=== PATIENT | male | born 1970 | race Caucasian/White ===

== ENCOUNTER 2019-09-01 19:42 | Emergency (ER) | payer SELFPAY ==
[2019-09-01] VITALS (15 sets, daily range): BP systolic 131–194; BP diastolic 90–123; PULSE 70–82; RESP 16–22; TEMP 36.6–37; O2SAT 96–100; BMI 29.5
--- NOTE | 2019-09-01 19:55 | ED_ITS ---
Entered by Evon Trimble, acting as scribe for HPI - Skin/Abscess/Foreign Bdy General: Chief complaint: Skin/Abscess/Foreign Body Stated complaint: pulled pork stuck in throat Time Seen by Provider: 09/01/19 19:53 Source: patient Mode of arrival: ambulatory Limitations: no limitations History of Present Illness: HPI narrative: 48 yo Male presents to ED with com plaint of foreign body stuck in throat. Pt states that he has an esophageal stricture. Pt states that he was eating pulled pork when some became stuck in his throat around 1500 today. Pt has a history of stroke and has had his throat stretched multiple times at [facility] [place] before. Pt states that he is unable to swallow his saliva. Pt states that the last meal he ate was this morning. Pt states that he was attempting to eat a late lunch at 15:00 today and he took one bite of food, which got stuck in his throat. complaint: foreign body (in throat) Onset (ago): hour(s) Location: neck (throat) Severity: moderate Severity scale (1-10): 7 Quality: foreign body sensation Pain Consistency: constant Relieving factors: none Exacerbating factors: none Associated symptoms: Deny chills, fever(s), nausea, short of breath or vomiting Treatments prior to arrival: none Review of Systems General: Reports: 10 or more systems reviewed and unremarkable except in HPI and below Const: Denies: fever, chills or body aches Eyes: Denies: change in vision or blurry vision ENMT: Reports: other (foreign body in throat); Denies: throat pain, enlarged tonsils, painful swallowing, hoarseness, mouth pa in or swelling of lips/tongue Card: Denies: chest pain, palpitations, irregular heart rhythm, edema or swelling of feet/ankles Resp: Denies: shortness of breath, productive cough or non-productive cough GI: Denies: abdominal pain, nausea or vomiting : Denies: flank pain, painful urination, urinary frequency, urinary urgency or urinary hesitancy Musc: Denies: neck pain, back pain or extremity swelling Skin/Breast: Denies: rash, itching or redness Neuro: Denies: headache, numbness in extremities or weakness in extremities Endo: Denies: excessive urination, excessive thirst or tired all the time PFS ED PFSH: Social History Smoking and tobacco status: never smoked Physical Exam Const: COMMON NORMALS: no apparent distress, average body habitus, oriented x3, no limitations, healthy appearing, alert and well nourished HENMT: COMMON NORMALS: normocephalic, head/scalp atraumatic and moist oral mucous membranes HEAD & SCALP: normocephalic and atraumatic Eye: COMMON NORMALS: PERRL, EOMs intact bilaterally, conjunctivae normal and no scleral icterus CONJUNCTIVA: Yes conjunctivae normal PUPIL: Yes PERRL Neck/C-Spine: COMMON NORMALS: full ROM, supple, no meningeal signs, no JVD and no carotid bruits Chest: COMMONS NORMALS: inspection of chest normal and palpation of chest normal Resp: COMMON NORMALS: normal respiratory effort, no retractions, no use of accessory muscles, clear to auscultation bilaterally and percussion normal AUSCULTATION: clear to auscultation bilaterally PERCUSSION: percussion normal Cardio: COMMON NORMALS: no JVD, regular rate, regular rhythm, S1 normal heart sound, S2 normal heart sound, no gallops, no clicks, no murmurs, no rub and peripheral pulses 2+ throughout RATE: regular rate RHYTHM: regular rhythm HEART SOUNDS: S1 normal and S2 normal PERIPHERAL PULSES: pulses 2+ throughout GI: COMMON NORMALS: normal to inspection, nondistended, normoactive bowel sounds, soft to palpation, non-tender, no hepatosplenomegaly, no masses and no bruits PALPATION: Yes soft and Yes no hepatosplenomegaly : COMMON NORMALS: Yes no CVA tenderness BLADDER/KIDNEY EXAM: Yes no CVA tenderness Back/Pelvis: COMMON NORMALS: no CVA tenderness Extremity: COMMON NORMALS: normal to inspection, full ROM, normal capillary refill, no calf tenderness and no pedal edema Neuro: COMMON NORMALS: oriented x3 SENSORIUM/ORIENTATION: Yes alert MENINGEAL SIGNS: Yes no meningeal signs Skin: COMMON NORMALS: no rashes or lesions noted, no wounds, skin turgor normal, no jaundice, no petechiae and no mottling GENERAL SKIN EXAM: no rashes or lesions noted and turgor normal Course Consultations: Consultation #1: Dr. Lynne, Surgeon. He states that he does not do esophageal dilations so he will not be able to do this patient. Time: 20:18 Consultation #2: Dr. Hardin, he kindly accepted to perform the foreign body removal on this patient. Time: 20:25 Vital Signs: Vital signs: Vital Signs Temperature 98.0 F 09/01/19 21:31 Pulse Rate 74 09/01/19 21:31 Respiratory Rate 18 09/01/19 21:31 Blood Pressure 180/122 09/01/19 21:31 Pulse Oximetry 100 09/01/19 21:31 MDM - Skin/Abscess/Foreign Bdy MDM Narrative: Medical decision making narrative: 48-year-old gentleman with a history of esophageal strictures who presents to the emergency department with a food bolus stuck in his esophagus. This happened about 3 PM today. He is unable to swallow anything including his saliva. He is therefore been taking to the OR for an endoscopic removal. Contacted the surgeon second worker but he does not do dilations, so Dr. Hardin kindly accepted to do the foreign body removal. Medical Records: Attestation: I reviewed the patient's medical records. EKG Data^: EKG 1: Attestation: I personally reviewed and interpreted this EKG as follows: EKG Interpretation Date: 09/01/19 EKG interpretation time: 20:14 Prior EKG tracings: not available for review Interpretation: Sinus rhythm. Heart rate 77 bpm. Left ventricular hypertrophy. Q waves in I, IIaVF, V2-V6 Discharge Plan Discharge Patient Disposition: Home, Self-Care Clinical Impression: Foreign body in esophagus Qualifiers: Encounter type: initial encounter Qualified Code(s): T18.108A - Unspecified foreign body in esophagus causing other injury, initial encounter Condition: Stable Prescriptions: Continued gabapentin 300 mg Capsule 300 mg PO TID RF: 0 Keppra 750 mg Tablet 750 mg PO DAILY RF: 0 Discharge Orders: Discharge Order (Routine); Ordered 09/01/19 Ordered By: Prateek Zavaleta Referrals: Gildardo Roberts [Family Provider] - 4-7 days Patient Instructions: Foreign Body - Swallowed Discharge Date/Time: 09/01/19 21:27 Coding Level of Care Code ED Grocery Store Courtesy Clerk for Chg Fwd Exam Comprehensive The documentation recorded by the Atilio ames Carmen, accurately reflects the service I personally performed and the decisions made by me, Prateek Zavaleta MD, [facility] [place] Sep 01, 2019 19:42
--- NOTE | 2019-09-01 20:08 | XR_ITS ---
WS: [id number] AP and lateral soft tissue views of the neck, 09/01/2019 Clinical Data: FB in throat Comparison: AP and lateral soft tissue neck, 10/26/2016. Findings: No radiopaque foreign body can be seen. The thyroid and cricoid cartilages are normal. There is no ep iglottitis. No prevertebral soft tissue swelling is seen. The soft tissues of the neck in the lung ap ices are unremarkable. Minimal anterior osteoarthritic change at C5 and C6 is noted. There are monito r leads on the upper chest. XR/XR soft tissue neck [id number] Impression: Negative AP and lateral soft tissue views of neck.
--- NOTE | 2019-09-01 21:16 | P.ANESASSM_ITS ---
Pre-Anesthetic Assessment Pre-Anesthetic Assessment: Height/Weight: Height 1.75 m Weight 90.718 kg Temp Pulse Resp BP Pulse Ox 98.6 F 82 18 194/123 97 09/01/19 19:51 09/01/19 19:51 09/01/19 19:51 09/01/19 19:51 09/01/19 19:51 Preop Diagnosis: Esophageal food bolus Proposed Procedure: Operation Date: 09/01/19 21:30 Proposed Procedures p EGD(Left) - Ha Hardin MD Last intake: Intake Last Liquid Date 09/01/19 Last Liquid Time 15:00 Last Solid Date 09/01/19 Last Solid Time 15:00 Social: Social History: Tobacco Comment: cigars Exam: Pre-Anes Outpt Exam: alert, oriented x 3, clear to auscultation bilater ally and regular rate & rhythm Airway: Submandibular: WNL Cervical ROM: WNL MP: 2 Additional co mments: poor CV/HEM: CV/HEM: HTN GI: Comments: Esophageal stricture, s/p previous food bolus and subsequent dilation 2016 Neuropsych: Neuropsych: CVA and Seizure Comments: 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
[2019-09-01] MEDS: sodium chloride 0.9% 1,000 ML 30 ML IV (21:30)
[2019-09-01 21:48] LABS: Basophils # 0.1 10^3/uL (0.0-0.1); Basophils % 0.8 %; Eosinophils # 1.2 10^3/uL (0.0-0.8); Hematocrit 48.2 % (42.0-52.0); Hemoglobin 15.9 g/dL (11.7-16.6); Lymphocytes # 2.8 10^3/uL (0.8-4.8); Lymphocytes % 21.6 %; Mean Corpuscular Hemoglobin 29.4 pg (28.0-34.0); Mean Corpuscular Volume 89.3 fL (80-94); Mean Platelet Volume 10.1 fL (7.4-10.4); Monocytes # 0.7 10^3/uL (0.2-0.9); Monocytes % 5.1 %; Neutrophils # 8.3 10^3/uL (1.8-7.7); Neutrophils % 63.3 %; Nucleated Red Blood Cells % 0 %; Platelet Count 327 10^3/cmm (130-400); Red Cell Distribution Width 13.2 % (12.1-15.1); White Blood Count 13.2 10^3/uL (4.0-10.0)
--- NOTE | 2019-09-01 21:59 | SUR.PHASEI ---
8993 PATIENT TO PACU AT THIS TIME. RR EVEN AND UNLABORED. SPO2 98% ON ROOM AIR. PATIENT NOTED TO BE MOANING, DOESN'T OPEN EYES TO VERBAL STIMULI. PROTECTING AIRWAY.
[2019-09-01 22:05] LABS: INR 1.03 (0.8-1.2)
--- NOTE | 2019-09-01 22:06 | PM.PACU ---
PACU note PACU note: Good resp effort wih VSS Post-Anesthesia Exam: awake and vital signs stable Disposition: discharged
--- NOTE | 2019-09-01 22:08 | SUR.PHASEI ---
2208 PATIENT FAMILY UPDATED.
[2019-09-01 22:14] LABS: Alanine Aminotransferase 38 U/L (0-41); Albumin Level 4.2 g/dL (3.5-5.2); Alkaline Phosphatase 37 IU/L (40-130); Aspartate Amino Transferase 27 U/L (0-40); Blood Urea Nitrogen 10 mg/dL (6-20); Calcium 9.6 mg/dL (8.5-10.5); Carbon Dioxide 24 mmol/L (22-29); Chloride 104 mmol/L (98-107); Globulin 3.1 g/dL (1.3-4.6); Glomerular Filtration Rate 79.4 mL/min (90-130); Glucose 148 mg/dL (65-115); Sodium 141 mmol/L (136-145); Total Bilirubin 0.3 mg/dL (0.15-1.2); Total Protein 7.3 g/dL (6.6-8.7)
[2019-09-01] MEDS: ondansetron 2 mg/ML SDV 2 mL 4 MG IVP (22:20)
[2019-09-01] MEDS: labetalol 5 mg/mL SDV 20mL IVP (22:32)
--- NOTE | 2019-09-01 22:36 | SUR.PHASEI ---
2233 PATIENT CARE TURNED OVER TO OPS NURSE AT THIS TIME. RR EVEN AND UNLABORED. DENIES PAIN.
== END 2019-09-01 23:00 | disposition home or self-care (01) ==
PROVIDERS: Internal Medicine; Emergency Provider Family Medicine; Family Provider Family Medicine
PROC: 0DJ08ZZ Inspection of Upper Intestinal Tract, Via Natural or Artificial Opening Endoscopic (ICD-10-PCS; CPT 43235; principal; 2019-09-01 21:30)
DX: T18.128A Food in esophagus causing other injury, initial encounter (principal); Z86.73 Personal history of transient ischemic attack (TIA), and cerebral infarction without residual deficits
CPT/HCPCS: 36415; 43235; 70360; 80053; 85025; 85610; 96361; 96372; 96374; 96375; 99283; 99285; J0330; J1610; J2405; J2704; J3490; J7030

== ENCOUNTER 2020-03-26 19:10 | Emergency (ER) | payer SELFPAY ==
[2020-03-26 19:13] VITALS: BP 194/137; PULSE 96; RESP 20; TEMP 36.7; O2SAT 95; BMI 28.4
--- NOTE | 2020-03-26 19:14 | ED_ITS ---
HPI - Extremity Injury (Upper) General: Chief Complaint: Extremity Injury, Upper Stated Complaint: hand lac Time Seen by Provider: 03/26/20 19:14 Source: patient Mode of arrival: EMS Limitations: no limitations History of Present Illness: HPI narrative: Patient is a 49-year-old male presents to ED today for evaluation of a left hand/finger injury after lacerating several fingers with a table saw. Patient is up-to-date on immunizations. MD complaint: injury to: left and finger Onset (ago): hour(s) Other Extremity Injury: Left: fingers Other injuries: none Place: home Severity: severe Associated symptoms: Reports no associated symptoms Review of Systems Musc: Reports: extremity pain (L 1st, 2nd, 3rd digits ) Skin/Breast: Reports: other (finger lacerations) Neuro: Denies: numbness in extremities or sensory changes PFSH ED PFSH: Social History Smoking and tobacco status: never smoked Physical Exam Const: COMMON NORMALS: no acute distress, patient oriented x3, no limitations and alert Extremity: GENERAL: Yes normal exam except as noted OTHER: pt has lacerations to dorsal tips of L 1st, 2nd, 3rd digits; there is nail involvement of 2nd and 3rd digits; 3rd digit is more of a skin avulsion/loss and non- repairable; I do not visualize any tendon damage at this time Neuro: COMMON NORMALS: patient oriented x3, moves all extremities, no focal motor deficits and no sensory deficits noted SENSORIUM/ORIENTATION: Yes alert Skin: OTHER: see extremity assessment Procedures Laceration Laceration 1: Site: hand (thumb) Side (If applicable): left Size (cm): 2.0 Description: irregular Depth: simple, single layer Local Anesthetic: lidocaine 2% (digital block) Amount of anesthesia used (mL): 2.0 Pre-repair: wound explored and irrigated extensively Skin layer closed with: nylon Size (cm): 4-0 Number of sutures: 4 Technique: simple, interrupted Laceration 2: Site: hand (2nd digit) Side (If applicable): left Size (cm): 2.0 Description: irregular Depth: simple, single layer Local Anesthetic: lidocaine 2% (digital block) Amount of anesthesia used (mL): 2.0 Pre-repair: wound explored and irrigated extensively Skin layer closed with: nylon Size (cm): 4-0 Number of sutures: 4 Technique: simple, interrupted Course Consultations: Consultation #1: Dr. Barrientos-recommend loosely close lacerations, make sure tetanus is UTD, cover with abx, volar splint, and she will see patient on Sunday Vital Signs: Vital signs: Vital Signs Temperature 97.9 F 03/26/20 22:10 Pulse Rate 64 03/26/20 22:10 Respiratory Rate 18 03/26/20 22:10 Blood Pressure 148/92 03/26/20 22:10 Pulse Oximetry 99 03/26/20 22:10 MDM - Extremity Injury (Upper) MDM Narrative: Medical decision making narrative: wounds were soaked in betadine and copiously irrigated, wounds loosely closed, wounds dressed, and he was given IV ancef here; everything has been sent to [facility] for them to contact pt on Sunday for follow up; return to ED precautions given Imaging Data^: XR L hand: Radiologist's impression: [address] [address] XRay Report Signed Patient: Jay Dodge Unit #: [id number] : 1970 Age/Sex: 49 / M ADM Date: 03/26/20 Loc: ER Room/Bed: Attending Dr: Ordering Provider/Ordering MD: Lisa Tolbert Date of Service: 03/26/20 Procedure(s): XR hand LT min 3V* [id number] Accession Number(s): [id number] Report Number: [id number] PROCEDURE INFORMATION: Exam: XR Left Hand Exam date and time: 03/26/2020 7:26 PM Age: 49 years old Clinical indication: Injury or trauma; Fall; Initial encounter; Laceration; Hand; Left; Additional info: Trauma; Saw blade TECHNIQUE: Imaging protocol: XR Left hand. Views: 3 or more views. COMPARISON: No relevant prior studies available. FINDINGS: There is a fracture of the 2nd distal phalanx. There is comminution. There is associated soft tissue injury. There may be soft tissue injury to the distal 3rd finger. There is also a comminuted fracture involving the 1st distal phalanx with extensive soft tissue injury. There are marked arthritic changes of the interphalangeal joints throughout the hand. The wrist itself appears normal. XR/XR hand LT min 3V* [id number] IMPRESSION: Comminuted fractures involving the distal phalanges of the 1st and 2nd fingers. There is extensive soft tissue injury. There also may be soft tissue injury involving the distal 3rd finger. Dictated By: Edwardo Arevalo MD Signed By: Edwardo Arevalo MD Signed Date/Time: 03/26/202007 DD/ 06 Discharge Plan Discharge Patient Disposition: Home Clinical Impression: Fracture of distal phalanx of left thumb Qualifiers: Encounter type: initial encounter Fracture type: open Fracture alignment: nondisplaced Qualified Code(s): S62.525B - Nondisplaced fracture of distal phalanx of left thumb, initial encounter for open fracture Fracture of distal phalanx of left index finger Qualifiers: Encounter type: initial encounter Fracture type: open Fracture alignment: nondisplaced Qualified Code(s): S62.661B - Nondisplaced fracture of distal phalanx of left index finger, initial encounter for open fracture Condition: Stable Prescriptions: New hydrocodone-acetaminophen 5-325 mg tablet 1 tab PO Q6H PRN (Reason: pain) Qty: 14 RF: 0 Bactrim DS 800-160 mg tablet 1 tab PO BID 7 Days Qty: 14 RF: 0 Keflex 500 mg capsule 500 mg PO Q6H 7 Days Qty: 28 RF: 0 No Action levetiracetam [Keppra] 750 mg Tablet 750 mg PO DAILY RF: 0 Discharge Orders: Discharge Order (Routine); Ordered 03/26/20 Ordered By: Lisa Tolbert Referrals: Gildardo Roberts [Primary Care Provider] - Patient Instructions: Fractures - Phalanx (Finger), Finger Fracture (ED) Activity Restrictions/Additional Instructions: As discussed you need to be doing wet-to-dry dressings on the fingers/wounds. You will see Dr. Barrientos who is a hand surgeon at [facility] on Sunday. They will be contacting you Sunday morning with the number you provided. Fill your antibiotics tomorrow and take them as directed. You may return to the emergency department over the weekend for redness, swelling, drainage, increased pain. Continue to wear splint. [facility] [address] [place], [place] [id number] Discharge Date/Time: 03/26/20 22:14 Coding Level of Care Code ED Library Sales Consultant for Aaron Blankenship
--- NOTE | 2020-03-26 19:25 | XRR_ITS ---
PROCEDURE INFORMATION: Exam: XR Left Hand Exam date and time: 03/26/2020 7:26 PM Age: 49 years old Clinical indication: Injury or trauma; Fall; Initial encounter; Laceration; Hand; Left; Additional info: Trauma; Saw blade TECHNIQUE: Imaging protocol: XR Left hand. Views: 3 or more views. COMPARISON: No relevant prior studies available. FINDINGS: There is a fracture of the 2nd distal phalanx. There is comminution. There is associated soft tissue injury. There may be soft tissue injury to the distal 3rd finger. There is also a comminuted fracture involving the 1st distal phalanx with extensive soft tissue injury. There are marked arthritic changes of the interphalangeal joints throughout the hand. The wrist itself appears normal. XR/XR hand LT min 3V* [id number] IMPRESSION: Comminuted fractures involving the distal phalanges of the 1st and 2nd fingers. There is extensive soft tissue injury. There also may be soft tissue injury involving the distal 3rd finger.
[2020-03-26] MEDS: metoclopramide 5 mg/mL SDV 2 mL 10 MG IVP (19:42)
[2020-03-26] MEDS: lidocaine 2% INJ 20 mL INJECTION (19:43)
[2020-03-26 20:05] VITALS: RESP 18
[2020-03-26] MEDS: morphine 4 mg/mL SDV 1 mL IVP (20:05)
[2020-03-26] MEDS: ceFAZolin 1,000 mg SDV 1000 MG IVP (20:05)
[2020-03-26 22:10] VITALS: BP 148/92; PULSE 64; RESP 18; TEMP 36.6; O2SAT 99
== END 2020-03-26 22:14 | disposition home or self-care (01) ==
PROVIDERS: Emergency Provider Physician Assistant; PCP Family Medicine
DX: S62.525B Nondisplaced fracture of distal phalanx of left thumb, initial encounter for open fracture (principal); S62.661B Nondisplaced fracture of distal phalanx of left index finger, initial encounter for open fracture; W27.0XXA Contact with workbench tool, initial encounter
CPT/HCPCS: 12002; 12345; 29130; 73130; 96372; 96374; 96375; 99282; 99283; J0690; J2270; J2765

== ENCOUNTER 2021-01-13 22:47 | Day surgery (SDC) | payer MEDICARE, SELFPAY ==
[2021-01-13 23:37] VITALS: BP 177/135; PULSE 90; RESP 18; TEMP 36.7; O2SAT 98; BMI 29.5
--- NOTE | 2021-01-13 23:49 | XRR_ITS ---
PROCEDURE INFORMATION: Exam: XR Soft Tissue Neck Exam date and time: 01/13/2021 11:49 PM Age: 50 years old Clinical indication: Other: Fb; Additional info: Fb, food stuck in throat TECHNIQUE: Imaging protocol: XR of the soft tissues of the neck. COMPARISON: CR XR soft tissue neck [id number] 09/01/2019 8:20 PM FINDINGS: Airway: Normal. No abnormal narrowing. Soft tissues: Normal. Normal epiglottis. Bones/joints: Unremarkable. XR/XR soft tissue neck [id number] IMPRESSION: No acute findings.
--- NOTE | 2021-01-13 23:58 | W.ED.NAVMDI ---
HPI - Nausea/Vomiting/Diarrhea General: Chief complaint: Airway/Esophagus Foreign Body Stated complaint: Food stuck in Throat Time Seen by Provider: 01/13/21 23:49 Source: patient Mode of arrival: ambulatory Limitations: no limitations History of Present Illness: HPI Narrative: 50-year-old male who states he was eating pizza roughly 3 to 4 hours ago and felt like his esophageal food impaction. He states that multiple days in the past has had to have dilatations and EGDs form. States has not been able to tolerate liquid or solids and has been vomiting. Denies any worsening improving factors. Associated nausea: No Associated symtoms: Denies chest pain, dysuria, headache(s) or nausea Review of Systems Const: Denies: fever(s), chills, body aches or change in appetite Eyes: Denies: blurry vision or eye discomfort ENMT: Denies: throat pain or dental pain Card: Denies: chest pain Resp: Denies: dyspnea GI: Reports: vomiting; Denies: abdominal pain, nausea or diarrhea : Denies: dysuria Musc: Denies: neck pain or back pain Skin/Breast: Denies: rash Neuro: Denies: headache(s) Psych: Denies: depression Michelet/Lymph: Denies: easy bruising All/Imm: Denies: urticaria PFSH ED PFSH: Social History Smoking and tobacco status: never smoked Physical Exam Const: COMMON NORMALS: no acute distress, patient oriented x3 and healthy appearing HENMT: COMMON NORMALS: normocephalic and atraumatic HEAD & SCALP: normocephalic and atraumatic Eye: COMMON NORMALS: Equal, round and reactive pupils present and EOMs intact bilaterally PUPIL: Yes Equal, round and reactive pupils present Neck/C-Spine: COMMON NORMALS: full ROM and supple Chest: COMMONS NORMALS: normal inspection of the chest and normal palpation of entire chest wall Resp: COMMON NORMALS: normal respiratory effort, No retractions, No use of accessory muscles and clear to auscultation bilaterally AUSCULTATION: clear to auscultation bilaterally Cardio: COMMON NORMALS: regular rate, regular rhythm and No murmurs present (Cardio) RATE: regular rate RHYTHM: regular rhythm GI: COMMON NORMALS: Normal to inspection, nondistended, normoactive bowel sounds present, Soft to palpation, non-tender and no masses PALPATION: Yes Soft to palpation Extremity: COMMON NORMALS: normal to inspection and full ROM Neuro: COMMON NORMALS: patient oriented x3, moves all extremities and no focal motor deficits Psych: COMMON NORMALS: mental status grossly normal, Normal thought process present and cooperative THOUGHT PROCESS: Normal thought process present Skin: COMMON NORMALS: no rashes or lesions noted and no wounds GENERAL SKIN EXAM: no rashes or lesions noted Course Vital Signs: Vital signs: Vital Signs Temperature 98.1 F 01/13/21 23:37 Pulse Rate 90 01/13/21 23:37 Respiratory Rate 18 01/13/21 23:37 Blood Pressure 177/135 01/13/21 23:37 Pulse Oximetry 98 01/13/21 23:37 MDM - Nausea/Vomiting/Diarrhea MDM Narrative: Medical decision making narrative: Patient presents here the esophageal food impaction has history of this. I spoke to Dr. Sánchez and he is going to take patient to do an EGD. Discharge Plan Discharge Patient Disposition: Admitted As Inpatient Clinical Impression: Food impaction of esophagus Qualifiers: Encounter type: initial encounter Qualified Code(s): T18.128A - Food in esophagus causing other injury, initial encounter Condition: Stable Coding Level of Care Code ED Regulator Tester for Chg Fwd Exam Comprehensive
--- NOTE | 2021-01-14 00:32 | PC.NURSE ---
Was in pt room to administer meds when ER physician came in to let pt know that Dr. Sánchez is coming into to consult with him. Dr. Landon gave verbal order to DC ordered medications.
--- NOTE | 2021-01-14 01:31 | PC.NURSE ---
OR nurse here to pickup patient and get report
--- NOTE | 2021-01-14 01:36 | ANES.PREANE2 ---
Pre-Anesthetic Assessment Pre-Anesthetic Assessment: Height/Weight: Height 1.75 m Weight 90.718 kg Temp Pulse Resp BP Pulse Ox 98.1 F 90 18 177/135 98 01/13/21 23:37 01/13/21 23:37 01/13/21 23:37 01/13/21 23:37 01/13/21 23:37 Preop Diagnosis: Esophageal food bolus Proposed Procedure: EGD Familial anesthetic complications: none Was Beta Layo taken within 24 hours: N/A Was Clonidine taken within 24 hours: N/A Last Intake: 21:00 Social: Social History: No alcohol and No tobacco Exam: Pre-Anes Outpt Exam: alert, oriented x 3, clear to auscultation bilaterally and regular rate & rhythm Airway: Submandibular: WNL Cervical ROM: WNL MP: 1 Dentition: False Pulmonary: Pulmonary: None reported CV/HEM: CV/HEM: None reported : : None reported Hepatic: Hepatic: None reported GI: GI: GERD Metabolic: Metabolic: None reported Musc/skel: Musc/skel: Lower Back Pain Neuropsych: Neuropsych: Seizure (grand mal 5 yrs ago last SZ) Anesthetic Plan: ASA status: 2E Anesthesia: General Risk of > 500 ml blood loss (7ml/kg in children): No PFSH Anesthesia PFSH: Social History Smoking and tobacco status: never smoked Data Anesthesia Cardiac Studies: No Data to Display
[2021-01-14 01:38] VITALS: BP 195/118; PULSE 89; RESP 18; TEMP 36.6; O2SAT 97
[2021-01-14] MEDS: sodium chloride 0.9% 1,000 ML 30 ML IV (01:52)
[2021-01-14 02:00] VITALS: O2SAT 98
--- NOTE | 2021-01-14 02:24 | P.HP_ITS ---
Providers/Chief Complaint Primary Care Provider: Gildardo Roberts Chief Complaint: Food stuck in Throat History of Present Illness Jay Dodge is a 50 year old male who presented to the ER last night with esophageal impaction due to food bolus. Patient states that he ate pizza around 9 PM and since then he has been unable to keep any liquids down. Patient denies any chest pain or abdominal pain. He had multiple similar episodes in the past where he has had disimpaction of food bolus. He is never been dilated. He takes [id number] PPI therapy. Denies any hematemesis Review of Systems General: Reports: 10 or more systems reviewed and unremarkable except in HPI and below Medications/Allergies Home Medications Medication Instructions Recorded Confirmed Last Taken Type levetiracetam [Keppra] 750 mg PO DAILY 09/01/19 03/26/20 03/26/20 History hydrocodone-acetaminophen 1 tab PO Q6H PRN #14 tab 03/26/20 Unknown Rx methocarbamol [Robaxin-750] 750 mg PO Q6H #30 tab 01/14/21 Unknown Rx naproxen [Naprosyn] 500 mg PO BID PRN #20 tab 01/14/21 Unknown Rx Allergies Allergy/AdvReac Type Severity Reaction Status Date / Time No Known Allergies Allergy Verified 09/01/19 19:52 PFSH Acute PFSH: Medical History (Updated 01/14/21 @ 02:26 by Gabriel Sánchez MD) CVA (cerebral vascular accident) Food impaction of esophagus Surgical History (Updated 01/14/21 @ 02:26 by Gabriel Sánchez MD) H/O esophagogastroduodenoscopy (01/14/21) Social History Smoking and tobacco status: never smoked Vitals/I&O/Wt Last Vital Signs Temp 97.8 F 01/14/21 01:38 Pulse 89 01/14/21 01:38 Resp 18 01/14/21 01:38 BP 195/118 01/14/21 01:38 Pulse Ox 98 01/14/21 02:00 Weight last 48 hrs Weight 200 lb Physical Exam Narrative: EXAM NARRATIVE: HEENT: Normocephalic Eye: Sclera /conjunctiva normal Abdomen: Soft to palpation Neurological: Oriented to place person and time Skin: Intact, no lesions appreciated on gross exam A&P Assessment and plan (1) Food impaction of esophagus: 50-year-old male with esophageal obstruction due to food impaction. He had multiple similar episodes in the past. Plan for EGD with disimpaction of food bolus under general anesthesia Procedure, risks, benefits and alternatives have been discussed with the patient who wishes to proceed with surgery. Status: Acute Qualifiers: Encounter type: initial encounter Qualified Code(s): T18.128A - Food in esophagus causing other injury, initial encounter Attestations Medical Necessity Statement*: Food bolus requiring EGD Coding Level of Care Code Acute Cardiovascular Technologist for [facility] Fwd Diagnoses Food impaction of esophagus T18.128A Encounter type: initial encounter
[2021-01-14 02:30] VITALS: BP 151/101; PULSE 75; RESP 20; TEMP 36.6; O2SAT 97
[2021-01-14 02:35] VITALS: BP 141/100; PULSE 77; RESP 16; TEMP 36.7; O2SAT 93
[2021-01-14 02:39] VITALS: BP 122/86; PULSE 76; RESP 18; TEMP 36.7; O2SAT 93
[2021-01-14 02:49] VITALS: BP 130/93; PULSE 73; RESP 18; TEMP 36.7; O2SAT 94
== END 2021-01-14 01:30 | disposition home or self-care (01) ==
LOC: ER 01-14 00:03 → OPS 01-14 07:32 → GILAB 01-14 08:26 → ER 01-14 08:28 → GILAB 01-14 08:28
PROVIDERS: Emergency Provider Emergency Medicine; PCP Family Medicine; Visit Provider Surgery
PROC: 0DJ08ZZ Inspection of Upper Intestinal Tract, Via Natural or Artificial Opening Endoscopic (ICD-10-PCS; CPT 43235; principal; 2021-01-14 01:35)
DX: T18.128A Food in esophagus causing other injury, initial encounter (principal); Z86.73 Personal history of transient ischemic attack (TIA), and cerebral infarction without residual deficits; K21.9 Gastro-esophageal reflux disease without esophagitis
CPT/HCPCS: 43235; 43247; 70360; 96360; J0330; J2704; J3490; J7030

== ENCOUNTER 2021-05-11 08:54 | Emergency (ER) | payer MEDICARE, SELFPAY ==
[2021-05-11 09:05] VITALS: BP 187/127; PULSE 106; RESP 18; TEMP 36.6; O2SAT 97; BMI 29.5
--- NOTE | 2021-05-11 09:16 | FL_ITS ---
WS: [id number] Upper GI with Gastrografin, today Clinical Data: eval for esophageal perf (water soluble contrast Comparison: None. Fluoroscopy time: 0.7 minutes. Findings: The patient swallowed the Gastrografin, and it flowed normally through the hypopharynx and into the e sophagus. There was poor propulsion of the Gastrografin into the distal esophagus. Distally there was a narrowing consistent with a stricture. No hiatal hernia, reflux, mass, polyp or extravasation was seen. The Gastrografin moved into the stomach which was well-distended and free of ulcer, polyp, mass or ex trinsic deformity. The duodenal bulb filled normally with no ulcer. There is no extravasation of Martell rografin from the stomach or the duodenum. NE/NE upper GI gastrografin [id number] Impression: 1. Negative for esophageal, stomach or duodenal extravasation. 2. Narrowing of the distal esophagus consistent with a stricture. 3. Poor esophageal motility. 4. Normal stomach and duodenum.
--- NOTE | 2021-05-11 09:16 | XR_ITS ---
WS: [id number] Portable AP upright chest, 05/11/2021 Clinical Data: eval mediastinal air Comparison: None. Findings: No nodules, masses or effusions are seen. The heart is normal. The pulmonary vascularity is not increased. No pneumonia or pneumothorax is seen. No pneumomediastinum is seen. XR/XR chest 1V portable [id number] Impression: Negative chest.
[2021-05-11 09:27] VITALS: BP 180/124; PULSE 103; RESP 19; TEMP 37.1; O2SAT 96
--- NOTE | 2021-05-11 09:37 | W.ED.GENADLT ---
HPI - General Adult General: Chief complaint: Airway/Esophagus Foreign Body Stated complaint: FOOD STUCK IN THROAT Time Seen by Provider: 05/11/21 09:01 History of Present Illness: HPI narrative: Patient is a 50-year-old male with a history of esophageal impaction secondary to esophageal stricture presenting to the emergency room with concerns of pain in the esophagus. Patient was eating popcorn yesterday when he was food impaction in his chest and took a cup of water. Shortly after, patient reported tearing pain in the chest. Patient says that he no longer has foreign object sensation in his esophagus. However he is still complaining of esophageal pain. Patient denies any fever or chills, reports some nausea with retching without any successful improvement in pain. Patient has not taken any additional medicine. Onset: 11pm yesterday Duration:1 day Location: home Severity: moderate Review of Systems Narrative: Constitutional: No fever, no chills. HEENT: No vision changes CV: +chest pain, no palpitations PULM: no cough, no dyspnea. GI: No abdominal pain, no N/V/D. : No dysuria MSKEL: No muscle pain SKIN: No new rashes, no lesions. NEURO: No headache, no focal weakness. HEME: No visible bruises PSYCH: Normal mood PFSH ED PFSH: Medical History (Updated 05/11/21 @ 09:19 by Jefferson Martinez MD) CVA (cerebral vascular accident) Food impaction of esophagus Surgical History (Updated 01/14/21 @ 02:26 by Gabriel Sánchez MD) H/O esophagogastroduodenoscopy (01/14/21) Social History Smoking and tobacco status: never smoked Physical Exam Narrative: EXAM NARRATIVE: Head: Atraumatic Eyes: PERRL, conjunctiva without injection ENT: Mucous membrane moist NECK: Supple, ROM intact LUNGS: LCTAB, no crackles/rhonchi CV: RRR ABDOMEN: Soft, nontender in all quadrants EXTREMITY: Normal ROM SKIN: No rash or erythema NEURO: Awake and alert, no focal motor deficits PSYCH: Normal mood and affect Course Vital Signs: Vital signs: Vital Signs Temperature 98.7 F 05/11/21 09:27 Pulse Rate 103 H 05/11/21 09:27 Respiratory Rate 19 H 05/11/21 09:27 Blood Pressure 180/124 05/11/21 09:27 Pulse Oximetry 96 05/11/21 09:27 MDM - General Adult MDM Narrative: Medical decision making narrative: 19-year-old male with a history of esophageal impaction presenting to the emergency room with complaints of retrosternal chest pain which started at 11 PM after eating pork loin and drinking of water. Patient says that he no longer has esophageal impaction symptoms. Patient denies any fever or chills but reports significant persistent pain. XR chest not show any signs of mediastinal air.. Upper GI study did not show any signs of perforation. Patient is given follow-up with neurosurgery for further evaluation of symptoms at this time. Disposition: Discharge. Patient counseled regarding diagnostic impression, treatment plan. Patient given ED strict return precautions to return for continuation, worsening, or development of new symptoms. Instructed to f/u w/ PCP regarding symptoms today. Patient verbalized understanding. Imaging Data^: Other Imaging: Radiologist's impression: [address] [id number] ReportSigned Patient: Heather Dodge #: [id number]: [id number]#:[id number]/Sex: 50 / MADM Date: 05/11/21Loc: [facility]/Bed:Attending Dr: Ordering Provider/Ordering MD: Jefferson Martinez MD Date of Service: 05/11/21 Procedure(s): AR upper GI gastrografin [id number] Accession Number(s): [id number] Report Number: [id number] WS: [id number] Upper GI with Gastrografin, today Clinical Data: eval for esophageal perf (water soluble contrast Comparison: None. Fluoroscopy time: 0.7 minutes. Findings: The patient swallowed the Gastrografin, and it flowed normally through the hypopharynx and into the esophagus. There was poor propulsion of the Gastrografin into the distal esophagus. Distally there was a narrowing consistent with a stricture. No hiatal hernia, reflux, mass, polyp or extravasation was seen. The Gastrografin moved into the stomach which was well-distended and free of ulcer, polyp, mass or extrinsic deformity. The duodenal bulb filled normally with no ulcer. There is no extravasation of Gastrografin from the stomach or the duodenum. FL/FL upper GI gastrografin 75193 Impression: 1. Negative for esophageal, stomach or duodenal extravasation. 2. Narrowing of the distal esophagus consistent with a stricture. 3. Poor esophageal motility. 4. Normal stomach and duodenum. Dictated By:Britni Jones MDSigned By:Britni Jones MDSigned Date/Time:05/11/21954DD/ [address] [id number] ReportSigned Patient: Heather Dodge #: [id number]: [id number]#:[id number]/Sex: 50 / MADM Date: 05/11/21Loc: [facility]/Bed:Attending Dr: Ordering Provider/Ordering MD: Jefferson Martinez MD Date of Service: 05/11/21 Procedure(s): XR chest 1V portable [id number] Accession Number(s): [id number] Report Number: [id number] WS: [id number] Portable AP upright chest, 05/11/2021 Clinical Data: eval mediastinal air Comparison: None. Findings: No nodules, masses or effusions are seen. The heart is normal. The pulmonary vascularity is not increased. No pneumonia or pneumothorax is seen. No pneumomediastinum is seen. XR/XR chest 1V portable [id number] Impression: Negative chest. Dictated By:Britni Jones MDSigned By:Britni Jones MDSigned Date/Time:05/11/21/ 4 Discharge Plan Discharge Patient Disposition: Home Clinical Impression: Chest pain Condition: Stable Prescriptions: No Action levetiracetam [Keppra] 750 mg Tablet 750 mg PO DAILY RF: 0 Discharge Orders: Discharge ED (Routine); Ordered 05/11/21 Ordered By: Jefferson Martinez Referrals: Gildardo Roberts [Primary Care Provider] - Discharge Diet: Advance as tolerated Discharge Activity: Resume usual activity Patient Instructions: Chest Pain (ED) Activity Restrictions/Additional Instructions: Our sample case porter will have you follow-up with general surgery in the next few days. You would be expected to have a phone call with our sample case porter who will put you on the schedule. Coding Level of Care Code ED Customer Solutions Architect for [facility]ens[facility]
[2021-05-11] MEDS: diatrizoate meglumine 120 mL Sol PO (09:51)
--- NOTE | 2021-05-11 09:53 | PC.PHAR ---
PT STATES HE TAKES KEPPRA 750MG DAILY PETR OG STATES THEY HAVENT FILLED THIS MEDICATION FOR THE PT
[2021-05-11] MEDS: lidocaine 2% viscous 15 ML, aluminum-mag hydrox-simethicon 30 ML, sucralfate oral liq 1 GM PO (10:24)
[2021-05-11 10:27] VITALS: BP 180/124; PULSE 98; RESP 18; O2SAT 94
[2021-05-11 10:41] VITALS: BP 184/123; PULSE 98; RESP 17; O2SAT 95
[2021-05-11] MEDS: NIFEdipine ER (24 hr) 30 mg Tablet PO (10:50)
[2021-05-11 11:28] VITALS: BP 188/110; PULSE 88; RESP 17; O2SAT 95
== END 2021-05-11 11:29 | disposition home or self-care (01) ==
PROVIDERS: Emergency Provider Emergency Medicine
DX: R07.89 Other chest pain (principal)
CPT/HCPCS: 71045; 74240; 99283; Q9963

== ENCOUNTER 2023-04-08 13:14 | Day surgery (SDC) | payer MEDICARE, SELFPAY ==
[2023-04-08] VITALS (13 sets, daily range): BP systolic 129–192; BP diastolic 93–121; PULSE 62–91; RESP 14–18; TEMP 36.1–36.6; O2SAT 92–99; BMI 30.4
[2023-04-08] MEDS: nitroglycerin 0.4 mg sublingual Tablet SUBLINGUAL (13:30)
--- NOTE | 2023-04-08 13:31 | W.ED.GENADLT ---
HPI - General Adult General: Chief complaint: Airway/Esophagus Foreign Body Stated complaint: throat obstruction Time Seen by Provider: 04/08/23 13:20 Source: patient Mode of arrival: ambulatory Limitations: no limitations History of Present Illness: Patient is a 52-year-old male who presents the emergency room with a complaint of airway obstruction. Patient reports that this is happened in the past. Reports that he was eating a hamburger last night around 7 PM and states it felt like it is lodged. Unable to eat or drink at this time. Denies any pain, fever, shortness of breath. Associated symptoms: Deny chest pain, dyspnea, nausea, palpitations or vomiting Review of Systems Const: Denies: fever(s) or chills Eyes: Denies: change in vision or blurry vision ENMT: Reports: throat pain and other (airway obstruction) Card: Denies: chest pain or palpitations Resp: Denies: dyspnea, productive cough or pain on inspiration GI: Denies: abdominal pain, nausea or vomiting Musc: Denies: neck pain or back pain PFSH ED PFSH: Medical History (Updated 04/08/23 @ 14:08 by Radha Landon MD) CVA (cerebral vascular accident) Food impaction of esophagus Surgical History (Updated 01/14/21 @ 02:26 by Gabriel Sánchez MD) H/O esophagogastroduodenoscopy (01/14/21) Social History Smoking and tobacco status: never smoked Physical Exam Const: COMMON NORMALS: patient oriented x3 and alert HENMT: COMMON NORMALS: normocephalic HEAD & SCALP: normocephalic THROAT: posterior oropharynx normal, uvula midline and other (no visible obstruction) Eye: COMMON NORMALS: Equal, round and reactive pupils present and EOMs intact bilaterally PUPIL: Yes Equal, round and reactive pupils present Neck/C-Spine: COMMON NORMALS: full ROM and no lymphadenopathy Lymph: LYMPHATIC: no lymphadenopathy noted Chest: CHEST: Yes Symmetrical chest wall rise Resp: COMMON NORMALS: normal respiratory effort and clear to auscultation bilaterally AUSCULTATION: clear to auscultation bilaterally Cardio: COMMON NORMALS: S1 normal heart sound present HEART SOUNDS: S1 normal heart sound present GI: COMMON NORMALS: Normal to inspection, nondistended, normoactive bowel sounds present Neuro: COMMON NORMALS: patient oriented x3 SENSORIUM/ORIENTATION: Yes alert Course Vital Signs: Vital signs: Vital Signs Temperature 98 F 04/08/23 13:22 Pulse Rate 91 04/08/23 13:22 Respiratory Rate 18 04/08/23 13:22 Blood Pressure 157/114 04/08/23 13:22 Pulse Oximetry 92 04/08/23 13:22 Oxygen Delivery Me thod Room Air 04/08/23 13:22 MDM - General Adult Medical Decision Making Patient presents here with esophageal food impaction spoke to Sd who is taking patient to GI lab. Medical Records I reviewed the patient's medical records. No radiology studies performed this visit Discharge Plan Discharge Patient Disposition: Admitted As Inpatient Clinical Impression: Food impaction of esophagus Condition: Stable Coding Level of Care Code ED Stoker Erector for [facility] Blankens[facility]
[2023-04-08] MEDS: glucagon 1 mg/mL KIT 1 mL IM (13:33)
--- NOTE | 2023-04-08 14:39 | P.HP_ITS ---
Providers/Chief Complaint Primary Care Provider: Gildardo Roberts Chief Complaint: throat obstruction History of Present Illness Jay Dodge is a 52 year old male who presents to the hospital with an esophageal food impaction. He reports this is happened twice before. He is eating a hamburger last night about 7:00 and ever since then has been unable to swallow his saliva. He is got some epigastric abdominal pain/chest pain that do es not radiate. Nothing is made the pain better or worse. Denies any nausea or vomiting Review of Systems General: Reports: 10 or more systems reviewed and unremarkable except in HPI and below Medications/Allergies Home Medications Medication Instructions Recorded Confirmed Last Taken Type levetiracetam 750 mg tablet 750 mg PO DAILY 09/01/19 04/08/23 04/08/23 History (John) Allergies Allergy/AdvReac Type Severity Reaction Status Date / Time No Known Allergies Allergy Verified 05/11/21 09:50 PFSH Acute PFSH: Medical History CVA (cerebral vascular accident) Food impaction of esophagus Surgical History H/O esophagogastroduodenoscopy (01/14/21) Social History Smoking and tobacco status: never smoked Vitals/I&O/Wt Last Vital Signs Temp 98 F 04/08/23 13:22 Pulse 91 04/08/23 13:22 Resp 18 04/08/23 13:22 BP 157/114 04/08/23 13:22 Pulse Ox 92 04/08/23 13:22 O2 Del Method Room Air 04/08/23 13:22 Weight last 48 hrs Weight 200 lb Physical Exam Narrative: General : Patient is well developed , no acute distress, oriented x3 Head : Normal cephalic, a-traumatic. Ears : Pinnae and external canal are normal. Hearing is normal. Eyes : PERRLA, Sclera and injection are normal. No conjunctival discharge. Nose : Mucous membranes are without erythema. Throat : buccal mucosa is normal, gums are without significant recession or hypertrophy. Lungs : Equal chest rise bilaterally, no use of accessory muscles, trachea is midline. Cor : Rate and rhythm are normal. Abdomen : Soft, ND, NT, no g/r/m Extremities : No edema, no cyanosis or clubbing, dorsalis pedis pulses are present bilaterally, non-tender to palpation of calves. Upper extremities are normal bilaterally. Back : non-tender to palpation, no CVA tenderness. Neuro : CN II - XII intact, Upper and lower extremities have equal and full strength A&P Assessment and plan (1) Food impaction of esophagus: Plan EGD The risks and benefits of the procedure, including bleeding, infection, i ntestinal perforation requiring surgery, missed lesion were explained to the patient. The patient is understanding of the risks and wishes to proceed. Attestations Medical Necessity Statement*: Patient was will be discharged home after procedure Coding Level of Care Code 06131 Diagnoses Food impaction of esophagus T18.128A
--- NOTE | 2023-04-08 15:04 | P.DS_ITS ---
Discharge Providers Date of Discharge: April 08, 2023 Attending Provider at Discharge: Poncho Beaver DO Primary Care Provider: Gildardo Roberts Diagnoses at Discharge Discharge Diagnosis (1) Food impaction of esophagus: Status: Acute Reason for Visit Reason for Visit: throat obstruction Hospital Course Hospital Course This very pleasant 52-year-old gentleman who presented to the hospital with his at least third esophageal food impaction that needed clearing. He underwent EGD with successful clearance of the impacted food. He was discharged home same day in good condition Physical Exam Narrative: General : Patient is well developed , no acute distress, oriented x3 Head : Normal cephalic, a-traumatic. Ears : Pinnae and external canal are normal. Hearing is normal. Eyes : PERRLA, Sclera and injection are normal. No conjunctival discharge. Nose : Mucous membranes are without erythema. Throat : buccal mucosa is normal, gums are without significant recession or hypertrophy. Lungs : Equal chest rise bilaterally, no use of accessory muscles, trachea is m idline. Cor : Rate and rhythm are normal. Abdomen : Soft, ND, NT, no g/r/m Extremities : No edema, no cyanosis or clubbing, dorsalis pedis pulses are present bilaterally, non-tender to palpation of calves. Upper extremities are normal bilaterally. Back : non-tender to palpation, no CVA tenderness. Neuro : CN II - XII intact, Upper and lower extremities have equal and full strength Discharge Data Vitals Last Vital Signs Temp 98 F 04/08/23 14:49 Pulse 91 04/08/23 14:49 Resp 18 04/08/23 14:49 BP 137/97 04/08/23 14:49 Pulse Ox 92 04/08/23 14:49 O2 Del Method Room Air 04/08/23 13:22 Discharge Plan Discharge Patient Disposition: Home Condition: Stable Prescriptions: Continued levetiracetam [Keppra] 750 mg Tablet 750 mg PO DAILY Discharge Orders: Discharge Order (Routine); Ordered 04/08/23 Ordered By: Poncho Beaver Referrals: Gildardo Roberts [Primary Care Provider] - 4-7 days Poncho Beaver DO [Physician] - 2 weeks Discharge Diet: Full LIquid Discharge Activity: Resume usual activity Patient Instructions: GI Discharge Instructions Activity Restrictions/Additional Instructions: EGD full liquid diet for 3 days and then regular diet Discharge Attestations Time Spent in Discharge Care*: less than 30 min Quality Metrics Clinical Quality Measures [ No reported AMI, CVA or VTE this stay] Coding Level of Care Code Acute Code for Chg Fwd Diagnoses Food impaction of esophagus T18.128A
--- NOTE | 2023-04-08 15:06 | P.ANESASSM_ITS ---
Pre-Anesthetic Assessment Height/Weight: Height 1.73 m Weight 90.718 kg Temp Pulse Resp BP Pulse Ox O2 Del Method 98 F 91 18 137/97 92 Room Air 04/08/23 14:49 04/08/23 14:49 04/08/23 14:49 04/08/23 14:49 04/08/23 14:49 04/08/23 13:22 Operation Date: 04/08/23 15:45 Proposed Procedures p Foreign Body Removal(Not Applicable) - Poncho Beaver DO Familial anesthetic complications: none Was Beta Layo taken within 24 hours: N/A Was Clonidine taken within 24 hours: N/A Social No alcohol and No tobacco Exam alert, oriented x 3, clear to auscultation bilaterally and regular rate & rhythm Airway Submandibular: within normal limits Cervical ROM: within normal limits Mallampati: Class II Dentition: chipped Comments: Comments: very poor dentition Metabolic Morbid Obesity Neuropsych Cerebrovascular Accident (aneurysm rupture) and Seizure Anesthetic Plan ASA status: 3E Medications/Allergies Home Medications Medication Instructions Recorded Confirmed Last Taken Type levetiracetam 750 mg tablet 750 mg PO DAILY 09/01/19 04/08/23 04/08/23 History (John) Allergies Allergy/AdvReac Type Severity Reaction Status Date / Time No Known Allergies Allergy Verified 05/11/21 09:50 [facility] Anesthesia Medical History CVA (cerebral vascular accident) Food impaction of esophagus Surgical History H/O esophagogastroduodenoscopy (01/14/21) Social History Smoking and tobacco status: never smoked Data Anesthesia Cardiac Studies: No Data to Display
--- NOTE | 2023-04-08 15:28 | ANE.PACU2 ---
Inpatient post-anesthesia follow up: Vital signs: Temperature 97 F Pulse Rate 69 Respiratory Rate 16 Blood Pressure 132/93 Pulse Oximetry 95 Oxygen Delivery Me thod Room Air Oxygen Flow Rate Fraction of Inspir ed Oxygen Hydration adequate: Yes Nausea and vomiting: No Pain level: 2 Mental status: Baseline
--- NOTE | 2023-04-08 15:57 | PC.NURSE ---
20 guage IV in Left AC upon arrival to GI. DC IV, Catheter intact.
== END 2023-04-08 15:58 | disposition home or self-care (01) ==
LOC: ER 13:35 → GILAB 14:05
PROVIDERS: Emergency Provider Emergency Medicine; PCP Family Medicine; Visit Provider Surgery
DX: T18.128A Food in esophagus causing other injury, initial encounter (principal); E66.01 Morbid (severe) obesity due to excess calories; Z68.30 Body mass index [BMI] 30.0-30.9, adult; Z86.73 Personal history of transient ischemic attack (TIA), and cerebral infarction without residual deficits; Y99.9 Unspecified external cause status
CPT/HCPCS: 43247; 96372; 99291; J0330; J1610; J2704; J3490

== ENCOUNTER 2025-05-09 20:22 | Inpatient (IN) | payer MEDICARE, SELFPAY ==
--- OUTSIDE RECORDS SUMMARY | 2025-05-09 20:28 | XMS_ITS | Encounter Summary ---
Author Organization [facility] Address [address] [place] [address] Care Team Providers Care Bilingual Patient Support Caseworker Name Role Phone Gildardo Roberts MD Primary Care Provider [phone] Encounter Details Date Type Department Care Team (Latest Contact Info) Description 10/13/2003 Outpatient Historical [facility] Family Medicine Yasmine [address] [phone] Roger Mi Jr., MD [address] [place] [address] 248 [facility] [address] [place] [phone] Dermatitis due to plant (Primary Dx) Social History Tobacco Use Types Packs/Day Years Used Date Smoking Tobacco: Never Assessed Sex and Gender Information Value Date Recorded Sex Assigned at Not on file Legal 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 PRODUCT 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
--- OUTSIDE RECORDS SUMMARY | 2025-05-09 20:28 | XMS_ITS | Encounter Summary ---
Author Organization [facility] Address [address] [place] [address] Care Team Providers Care Breeder Hen Service Technician Name Role Phone Gildardo Roberts MD Primary Care Provider [phone] Encounter Details Date Type Department Care Team (Latest Contact Info) Description 10/08/2002 Outpatient [facility] Family Medicine [address] [phone] Liborio Amin MD NO ADDRESS ON FILE CONCUSSION NOS (Primary Dx); CONVULSIONS, OTHER ([facility]) Social History Tobacco Use Types Packs/Day Years Used Date Smoking Tobacco: Never Assessed Sex and Gender Information Value Date Recorded Sex Assigned at Not on file Legal 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
--- OUTSIDE RECORDS SUMMARY | 2025-05-09 20:28 | XMS_ITS | Encounter Summary ---
Author Organization [facility] Address [address] [place] [address] Care Team Providers Care Mate Ship Name Role Phone Gildardo Roberts MD Primary Care Provider [phone] Encounter Details Date Type Department Care Team (Late st Contact Info) Description 09/09/2004 Outpatient Historical [facility] 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
--- OUTSIDE RECORDS SUMMARY | 2025-05-09 20:28 | XMS_ITS | Encounter Summary ---
Author Organization [facility] Address [address] [place] [address] Care Team Providers Care Billet Cutter Name Role Phone Gildardo Roberts MD Primary Care Provider [phone] Encounter Details Date Type Department Care Team (Latest Contact Info) Description 04/17/2002 Outpatient Historical [facility] Occupational Medicine [address] [place] [address] Daniel Shine MD NO ADDRESS ON FILE CONVULSIONS, OTHER (CMS/HCC) (Primary Dx) Social History Tobacco Use Types Packs/Day Years Used Date Smoking Tobacco: Never Assessed Sex and Gender Information Value Date Recorded Sex Assigned at Not on file 

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
--- OUTSIDE RECORDS SUMMARY | 2025-05-09 20:28 | XMS_ITS | Encounter Summary ---
Author Organization [facility] Address [address] [place] [address] Care Team Providers Care Convolute Tube Winder Name Role Phone Gildardo Roberts MD Primary Care Provider [phone] Encounter Details Date Type Department Care Team (Latest Contact Info) Description 09/04/2005 Outpatient Historical [facility] Family Medicine [place] [address] [address] Janee Wray, INFORMATION SERVICES MANAGER NO ADDRESS ON FILE JOINT PAIN-SHLDER (Primary Dx) Social History Tobacco Use Types Packs/Day Years Used Date Smoking Tobacco: Never Assessed Sex and Gender Information Value Date Recorded Sex Assigned at Not on file Legal 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
--- OUTSIDE RECORDS SUMMARY | 2025-05-09 20:28 | XMS_ITS | Encounter Summary ---
Author Organization [facility] Address [address] [place] [address] Care Team Providers Care Lining Vamper Name Role Phone Gildardo Roberts MD Primary Care Provider [phone] Encounter Details Date Type Department Care Team (Late st Contact Info) Description 09/02/2004 Outpatient Historical [facility] [address] [place] [address] Rakesh Khan MD NO ADDRESS ON FILE BENIGN VJ SKIN FACE NEC (Primary Dx) Social History Tobacco Use Types Packs/Day Years Used Date Smoking Tobacco: Never Assessed Sex and Gender Information Value Date Recorded Sex Assigned at Not on file Legal 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
--- OUTSIDE RECORDS SUMMARY | 2025-05-09 20:28 | XMS_ITS | Encounter Summary ---
Author Organization [facility] Address [address] [place] [address] Care Team Providers Care Mental Health Assistant Name Role Phone Gildardo Roberts MD Primary Care Provider [phone] Encounter Details Date Type Department Care Team (Latest Contact Info) Description 11/04/2002 Outpatient [facility] Family Medicine Yasmine [address] [address] Liborio Amin MD NO ADDRESS ON FILE CONVULSIONS, OTHER (CMS/HCC) (Primary Dx); HYPERLIPIDEMIA NEC/NOS; HYPERTENSION NOS Social History Tobacco Use Types Packs/Day Years Used Date Smoking Tobacco: Never Assessed Sex and Gender Information Value Date Recorded Sex Assigned at Not on file 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
--- OUTSIDE RECORDS SUMMARY | 2025-05-09 20:28 | XMS_ITS | Encounter Summary ---
Author Organization [facility] Address [address] [place] [address] Care Team Providers Care Sebd Teacher Name Role Phone Gildardo Roberts MD Primary Care Provider [phone] Encounter Details Date Type Department Care Team (Late st Contact Info) Description 05/11/2004 Outpatient Historical [facility] Family Medicine [place]asmine [address] [address] Social History Tobacco Use Types Packs/Day Years Used Date Smoking Tobacco: Never Assessed Sex and Gender Information Value Date Recorded Sex Assigned at Not on file Legal 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 HANSARD REPORTER Gender Identity Not on file Sexual Orientation Not on file documented as of this encounter Plan of Treatment Not on file documented as of this encounter Visit Diagnoses Not on filedocumented in this encounter Care Teams Sebd Teacher Relationship Specialty Start Date End Date Gildardo Roberts MD [address] [place] [address] PCP - General Family Practice 05/18/20 documented as of this encounter
--- OUTSIDE RECORDS SUMMARY | 2025-05-09 20:28 | XMS_ITS | Encounter Summary ---
Author Organization [facility] Address [address] [place] [address] Care Team Providers Care Fire Patroller Name Role Phone Gildardo Roberts MD Primary Care Provider [phone] Encounter Details Date Type Department Care Team (Late st Contact Info) Description 10/20/2005 Outpatient Historical [facility] Social History Tobacco Use Types Packs/Day Years Used Date Smoking Tobacco: Never Assessed Sex and Gender Information Value Date Recorded Sex Assigned at Not on file Legal 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 QA MANAGER Gender Identity Not on file Sexual Orientation Not on file documented as of this encounter Plan of Treatment Not on file documented as of this encounter Visit Diagnoses Not on filedocumented in this encounter Care Teams Fire Patroller Relationship Specialty Start Date End Date Gildardo Roberts MD [address] [place] [address] PCP - General Family Practice 05/18/20 documented as of this encounter
--- OUTSIDE RECORDS SUMMARY | 2025-05-09 20:28 | XMS_ITS | Encounter Summary ---
Author Organization [facility] Address [address] [place] [address] Care Team Providers Care Recruiting Operations Consultant Name Role Phone Gildardo Roberts MD Primary Care Provider [phone] Encounter Details Date Type Department Care Team (Late st Contact Info) Description 07/13/2005 Emergency [facility] Emergency Department [address] [place] [address] Willie Marino MD [address] [place] [address] FOREIGN BODY ESOPHAGUS (Primary Dx) Social History Tobacco Use Types Packs/Day Years Used Date Smoking Tobacco: Never Assessed Sex and Gender Information Value Date Recorded Sex Assigned at Not on file Legal 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 REGISTRATION CLERK Gender Identity Not on file Sexual Orientation Not on file documented as of this encounter Plan of Treatment Not on file documented as of this encounter Visit Diagnoses Diagnosis Foreign body in esophagus- Primary documented in this encounter Care Teams Recruiting Operations Consultant Relationship Specialty Start Date End Date Gildardo Roberts MD [address] [place] [address] PCP - General Family Practice 05/18/20 documented as of this encounter
--- OUTSIDE RECORDS SUMMARY | 2025-05-09 20:28 | XMS_ITS | Encounter Summary ---
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 Social History Tobacco Use Types Packs/Day Years Used Date Smoking Tobacco: Never Assessed Sex and Gender Information Value Date Recorded Sex Assigned at Not on file Legal 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 RETAIL 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 SALES Gender Identity Not on file Sexual Orientation Not on file documented as of this encounter Plan of Treatment Not on file documented as of this encounter Visit Diagnoses Diagnosis 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
--- OUTSIDE RECORDS SUMMARY | 2025-05-09 20:28 | XMS_ITS | Encounter Summary ---
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) Social History Tobacco Use Types Packs/Day Years Used Date Smoking Tobacco: Never Assessed Sex and Gender Information Value Date Recorded Sex Assigned at Not on file Legal 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 DENTOFACIAL ORTHOPEDICS DENTIST Gender Identity Not on file Sexual Orientation Not on file documented as of this encounter Plan of Treatment Not on file documented as of this encounter Visit Diagnoses Diagnosis 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
--- OUTSIDE RECORDS SUMMARY | 2025-05-09 20:28 | XMS_ITS | Encounter Summary ---
Author Organization [facility] Address [address] [place] [address] Care Team Providers Care Breeding Technician Name Role Phone Gildardo Roberts MD Primary Care Provider [phone] Encounter Details Date Type Department Care Team (Latest Contact Info) Description 07/19/2005 Outpatient Historical [facility] Gastroenterology- [place] [address] [address] Vince Rachel MD [address] [address] Esophageal stricture (Primary Dx); DYSPHAGIA Social History Tobacco Use Types Packs/Day Years Used Date Smoking Tobacco: Never Assessed Sex and Gender Information Value Date Recorded Sex Assigned at Not on file Legal 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 SUPERVISOR SHELLFISH FARMING Gender Identity Not on file Sexual Orientation Not on file documented as of this encounter Plan of Treatment Not on file documented as of this encounter Visit Diagnoses Diagnosis Esophageal stricture- Primary Stricture and stenosis of esophagus Dysphagia documented in this encounter Care Teams Breeding Technician Relationship Specialty Start Date End Date Gildardo Roberts MD [address] [place] [address] PCP - General Family Practice 05/18/20 documented as of this encounter
--- OUTSIDE RECORDS SUMMARY | 2025-05-09 20:28 | XMS_ITS | Encounter Summary ---
Author Organization [facility] Address [address] [place] [address] Care Team Providers Care Cone Chocolate Dipper Name Role Phone Gildardo Roberts MD Primary Care Provider [phone] Encounter Details Date Type Department Care Team (Latest Contact Info) Description 11/16/2004 Outpatient Historical [facility] Neurology [address] [place] [address] Jacobo Barney MD NO ADDRESS ON FILE GEN CONVUL EPI W/O MENTN INTRACT (CMS/HCC) (Primary Dx) Social History Tobacco Use Types Packs/Day Years Used Date Smoking Tobacco: Never Assessed Sex and Gender Information Value Date Recorded Sex Assigned at Not on file Legal 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 INTELLIGENCE OFFICER Gender Identity Not on file Sexual Orientation Not on file documented as of this encounter Plan of Treatment Not on file documented as of this encounter Visit Diagnoses Diagnosis 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
--- OUTSIDE RECORDS SUMMARY | 2025-05-09 20:28 | XMS_ITS | Encounter Summary ---
Author Organization [facility] Address [address] [place] [address] Care Team Providers Care Rigger Chief Name Role Phone Gildardo Roberts MD Primary Care Provider [phone] Encounter Details Date Type Department Care Team (Latest Contact Info) Description 08/22/2006 Outpatient Historical [facility] Gastroenterology- [place] [address] [address] Vince Rachel MD [address] [address] Esophageal Stricture (Primary Dx); Dysphagia; Other Specified Gastritis without Mention of Hemorrhage; Acute Duodenal Ulcer Social History Tobacco Use Types Packs/Day Years Used Date Smoking Tobacco: Never Assessed Sex and Gender Information Value Date Recorded Sex Assigned at Not on file Legal 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 GRAIN INSPECTOR Gender Identity Not on file Sexual Orientation Not on file documented as of this encounter Plan of Treatment Not on file documented as of this encounter Visit Diagnoses Diagnosis Esophageal stricture- Primary Stricture and stenosis of esophagus Dysphagia Other specified gastritis without mention of hemorrhage Acute duodenal ulcer without mention of hemorrhage, perforation, or obstruction documented in this encounter Care Teams Rigger Chief Relationship Specialty Start Date End Date Gildardo Roberts MD [address] [place] [address] PCP - General Family Practice 05/18/20 documented as of this encounter
--- OUTSIDE RECORDS SUMMARY | 2025-05-09 20:28 | XMS_ITS | Encounter Summary ---
Author Organization [facility] Address [address] [place] [address] Care Team Providers Care Breaker Boss Name Role Phone Gildardo Roberts MD Primary Care Provider [phone] Encounter Details Date Type Department Care Team (Latest Contact Info) Description 07/11/2003 Outpatient Historical [facility] [place] [address] [place] [address] Janee Wray, CURRENCY EXAMINER NO ADDRESS ON FILE CHEST SWELLING/MASS/LUMP (Primary Dx) Social History Tobacco Use Types Packs/Day Years Used Date Smoking Tobacco: Never Assessed Sex and Gender Information Value Date Recorded Sex Assigned at Not on file Legal 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 SPECIAL PROJECTS COORDINATOR Gender Identity Not on file Sexual Orientation Not on file documented as of this encounter Plan of Treatment Not on file documented as of this encounter Visit Diagnoses Diagnosis Swelling, mass, or lump in chest- Primary documented in this encounter Care Teams Breaker Boss Relationship Specialty Start Date End Date Gildardo Roberts MD [address] [place] [address] PCP - General Family Practice 05/18/20 documented as of this encounter
--- OUTSIDE RECORDS SUMMARY | 2025-05-09 20:28 | XMS_ITS | Encounter Summary ---
Author Organization [facility] Address [address] [place] [address] Care Team Providers Care Luster Applicator Name Role Phone Gildardo Roberts MD Primary Care Provider [phone] Encounter Details Date Type Department Care Team (Latest Contact Info) Description 03/20/2007 Outpatient Historical [facility] Endoscopy [place] [address] [place] [address] Vince Rachel MD [address] [facility] [address] [place] [address] Stricture and Stenosis of Esophagus (Primary Dx) Social History Tobacco Use Types Packs/Day Years Used Date Smoking Tobacco: Never Assessed Sex and Gender Information Value Date Recorded Sex Assigned at Not on file Legal 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 CHEMICALS DISTILLER Gender Identity Not on file Sexual Orientation Not on file documented as of this encounter Plan of Treatment Not on file documented as of this encounter Visit Diagnoses Diagnosis Stricture and stenosis of esophagus- Primary documented in this encounter Care Teams Luster Applicator Relationship Specialty Start Date End Date Gildardo Roberts MD [address] [place] [address] PCP - General Family Practice 05/18/20 documented as of this encounter
--- OUTSIDE RECORDS SUMMARY | 2025-05-09 20:28 | XMS_ITS | Encounter Summary ---
Author Organization [facility] Address [address] [place] [address] Care Team Providers Care Strategy Consultant Name Role Phone Gildardo Roberts MD Primary Care Provider [phone] Encounter Details Date Type Department Care Team (Latest Contact Info) Description 04/08/2007 Outpatient Historical [facility] Family Medicine Yasmine [address] [address] Janee Wray, DIRECTOR POST NO ADDRESS ON FILE Sprain Lumbosacral (Primary Dx) Social History Tobacco Use Types Packs/Day Years Used Date Smoking Tobacco: Never Assessed Sex and Gender Information Value Date Recorded Sex Assigned at Not on file Legal 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 LOFT RIGGER Gender Identity Not on file Sexual Orientation Not on file documented as of this encounter Plan of Treatment Not on file documented as of this encounter Visit Diagnoses Diagnosis Sprain lumbosacral- Primary Sprain of lumbosacral (joint) (ligament) documented in this encounter Care Teams Strategy Consultant Relationship Specialty Start Date End Date Gildardo Roberts MD [address] [place] [address] PCP - General Family Practice 05/18/20 documented as of this encounter
--- OUTSIDE RECORDS SUMMARY | 2025-05-09 20:28 | XMS_ITS | Encounter Summary ---
Author Organization [facility] Address [address] [place] [address] Care Team Providers Care Short Order Cook Name Role Phone Gildardo Roberts MD Primary Care Provider [phone] Encounter Details Date Type Department Care Team (Latest Contact Info) Description 06/10/2002 Outpatient Historical [facility] Family Medicine [address] [address] Liborio Amin MD NO ADDRESS ON FILE CONVULSIONS, OTHER (CMS/HCC) (Primary Dx); AFTERCARE DISABILITY AIDE USE MEDICATN; HYPERLIPIDEMIA NEC/NOS Social History Tobacco Use Types Packs/Day Years Used Date Smoking Tobacco: Never Assessed Sex and Gender Information Value Date Recorded Sex Assigned at Not on file Legal 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 UTILITY MAINTENANCE WORKER Gender Identity Not on file Sexual Orientation Not on file documented as of this encounter Plan of Treatment Not on file documented as of this encounter Visit Diagnoses Diagnosis Other convulsions- Primary Encounter for long-term (current) use of other medications Other and unspecified hyperlipidemia documented in this encounter Care Teams Short Order Cook Relationship Specialty Start Date End Date Gildardo Roberts MD [address] [place] [address] PCP - General Family Practice 05/18/20 documented as of this encounter
--- OUTSIDE RECORDS SUMMARY | 2025-05-09 20:28 | XMS_ITS | Encounter Summary ---
Author Organization [facility] Address [address] [place] [address] Care Team Providers Care Waitstaff Captain Name Role Phone Gildardo Roberts MD Primary Care Provider [phone] Encounter Details Date Type Department Care Team (Latest Contact Info) Description 08/29/2005 Outpatient Historical [facility] Neurology [address] [place] [address] Jacobo Barney MD NO ADDRESS ON FILE PSYCHO EPI W/O MENTN INTRACTABLE (CMS/HCC) (Primary Dx); HEADACHE Social History Tobacco Use Types Packs/Day Years Used Date Smoking Tobacco: Never Assessed Sex and Gender Information Value Date Recorded Sex Assigned at Not on file Legal 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 DRAMATIC TEACHER Gender Identity Not on file Sexual Orientation Not on file documented as of this encounter Plan of Treatment Not on file documented as of this encounter Visit Diagnoses Diagnosis Localization-related (focal) (partial) epilepsy and epileptic syndromes with complex partial seizures, without mention of intractable epilepsy- Primary Headache(784.0) Headache documented in this encounter Care Teams Waitstaff Captain Relationship Specialty Start Date End Date Gildardo Roberts MD [address] [place] [address] PCP - General Family Practice 05/18/20 documented as of this encounter
--- OUTSIDE RECORDS SUMMARY | 2025-05-09 20:28 | XMS_ITS | Encounter Summary ---
Author Organization [facility] Address [address] [place] [address] Care Team Providers Care Res Habilitation Assistant Name Role Phone Gildardo Roberts MD Primary Care Provider [phone] Encounter Details Date Type Department Care Team (Latest Contact Info) Description 10/27/2003 Outpatient [facility] Allergy and Asthma- [place] [address] [place] [address] Joon Anderson MD NO ADDRESS ON FILE CHRONIC RHINITIS (Primary Dx) Social History Tobacco Use Types Packs/Day Years Used Date Smoking Tobacco: Never Assessed Sex and Gender Information Value Date Recorded Sex Assigned at Not on file Legal 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 MANAGER LEADERSHIP DEVELOPMENT Gender Identity Not on file Sexual Orientation Not on file documented as of this encounter Plan of Treatment Not on file documented as of this encounter Visit Diagnoses Diagnosis Chronic rhinitis- Primary documented in this encounter Care Teams Res Habilitation Assistant Relationship Specialty Start Date End Date Gildardo Roberts MD [address] [place] [address] PCP - General Family Practice 05/18/20 documented as of this encounter
--- OUTSIDE RECORDS SUMMARY | 2025-05-09 20:28 | XMS_ITS | Encounter Summary ---
Author Organization [facility] Address [address] [place] [address] Care Team Providers Care Patient Financial Services Specialist Name Role Phone Gildardo Roberts MD Primary Care Provider [phone] Encounter Details Date Type Department Care Team (Late st Contact Info) Description 04/27/2004 Outpatient Historical [facility] Family Medicine Yasmine [address] [address] Social History Tobacco Use Types Packs/Day Years Used Date Smoking Tobacco: Never Assessed Sex and Gender Information Value Date Recorded Sex Assigned at Not on file Legal 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 DIRECTOR OF ANALYTICS Gender Identity Not on file Sexual Orientation Not on file documented as of this encounter Plan of Treatment Not on file documented as of this encounter Visit Diagnoses Not on filedocumented in this encounter Care Teams Patient Financial Services Specialist Relationship Specialty Start Date End Date Gildardo Roberts MD [address] [place] [address] PCP - General Family Practice 05/18/20 documented as of this encounter
--- OUTSIDE RECORDS SUMMARY | 2025-05-09 20:28 | XMS_ITS | Encounter Summary ---
Author Organization [facility] Address [address] [place] [address] Care Team Providers Care Cook Jelly Name Role Phone Gildardo Roberts MD Primary Care Provider [phone] Encounter Details Date Type Department Care Team (Latest Contact Info) Description 07/10/2003 Outpatient Historical [facility] Family Medicine Yasmine [address] [address] Janee Wray, BARK SPUDDER NO ADDRESS ON FILE UNCERTAIN BEHAV NEOPL SKIN (Primary Dx) Social History Tobacco Use Types Packs/Day Years Used Date Smoking Tobacco: Never Assessed Sex and Gender Information Value Date Recorded Sex Assigned at Not on file Legal 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 VESSEL SPECIALIST Gender Identity Not on file Sexual Orientation Not on file documented as of this encounter Plan of Treatment Not on file documented as of this encounter Visit Diagnoses Diagnosis Neoplasm of uncertain behavior of skin- Primary documented in this encounter Care Teams Cook Jelly Relationship Specialty Start Date End Date Gildardo Roberts MD [address] [place] [address] PCP - General Family Practice 05/18/20 documented as of this encounter
--- OUTSIDE RECORDS SUMMARY | 2025-05-09 20:28 | XMS_ITS | Encounter Summary ---
Author Organization [facility] Address [address] [place] [address] Care Team Providers Care Cab Supervisor Name Role Phone Gildardo Roberts MD Primary Care Provider [phone] Encounter Details Date Type Department Care Team (Latest Contact Info) Description 10/08/[address] [facility] Family Medicine Yasmine [address] [address] Liborio Amin MD NO ADDRESS ON FILE CONVULSIONS, OTHER (CMS/HCC) (Primary Dx); HYPERLIPIDEMIA NEC/NOS; HYPERTENSION NOS; ALLERGY, UNSPECIFIED Social History Tobacco Use Types Packs/Day Years Used Date Smoking Tobacco: Never Assessed Sex and Gender Information Value Date Recorded Sex Assigned at Not on file Legal 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 CIA AGENT Gender Identity Not on file Sexual Orientation Not on file documented as of this encounter Plan of Treatment Not on file documented as of this encounter Visit Diagnoses Diagnosis Other convulsions- Primary Other and unspecified hyperlipidemia Unspecified essential hypertension Allergy, unspecified not elsewhere classified documented in this encounter Care Teams Cab Supervisor Relationship Specialty Start Date End Date Gildardo Roberts MD [address] [place] [address] PCP - General Family Practice 05/18/20 documented as of this encounter
--- OUTSIDE RECORDS SUMMARY | 2025-05-09 20:28 | XMS_ITS | Encounter Summary ---
Author Organization [facility] Address [address] [place] [address] Care Team Providers Care Feather Boner Name Role Phone Gildardo Roberts MD Primary Care Provider [phone] Encounter Details Date Type Department Care Team (Late st Contact Info) Description 11/04/2002 Outpatient Historical [facility] Family Medicine Yasmine [address] [phone] Liborio Amin MD NO ADDRESS ON FILE Social History Tobacco Use Types Packs/Day Years Used Date Smoking Tobacco: Never Assessed Sex and Gender Information Value Date Recorded Sex Assigned at Not on file Legal 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 SUCTION ROLLER Gender Identity Not on file Sexual Orientation Not on file documented as of this encounter Plan of Treatment Not on file documented as of this encounter Visit Diagnoses Not on filedocumented in this encounter Care Teams Feather Boner Relationship Specialty Start Date End Date Gildardo Roberts MD [address] [address] PCP - General Family Practice 05/18/20 documented as of this encounter
--- OUTSIDE RECORDS SUMMARY | 2025-05-09 20:28 | XMS_ITS | Encounter Summary ---
Author Organization [facility] Address [address] [place] [address] Care Team Providers Care Ip Paralegal Name Role Phone Gildardo Roberts MD Primary Care Provider [phone] Encounter Details Date Type Department Care Team (Late st Contact Info) Description 06/13/[facility] [address] [place] [address] Jeronimo Dougherty MD NO ADDRESS ON FILE ACUTE DUODENAL ULCER W HEM (Primary Dx) Social History Tobacco Use Types Packs/Day Years Used Date Smoking Tobacco: Never Assessed Sex and Gender Information Value Date Recorded Sex Assigned at Not on file Legal 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 OFFICE MACHINES 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
--- OUTSIDE RECORDS SUMMARY | 2025-05-09 20:28 | XMS_ITS | Encounter Summary ---
Author Organization [facility] Address [address] [place] [address] Care Team Providers Care Caregiver Assisted Living Name Role Phone Gildardo Roberts MD Primary Care Provider [phone] Encounter Details Date Type Department Care Team (Latest Contact Info) Description 05/22/2005 [facility] [address] [facility] [address] [place] [address] Jacobo Barney MD NO ADDRESS ON FILE GEN CONVUL EPI W/O MENTN INTRACT (CMS/HCC) (Primary Dx) Social History Tobacco Use Types Packs/Day Years Used Date Smoking Tobacco: Never Assessed Sex and Gender Information Value Date Recorded Sex Assigned at Not on file Legal 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 SOCIAL MEDIA ANALYST Gender Identity Not on file Sexual Orientation Not on file documented as of this encounter Plan of Treatment Not on file documented as of this encounter Visit Diagnoses Diagnosis 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
--- OUTSIDE RECORDS SUMMARY | 2025-05-09 20:28 | XMS_ITS | Encounter Summary ---
Author Organization [facility] Address [address] [place] [address] Care Team Providers Care Brewery Cellar Worker Name Role Phone Gildardo Roberts MD Primary Care Provider [phone] Encounter Details Date Type Department Care Team (Latest Contact Info) Description 03/28/2007 Outpatient Historical [facility] Gastroenterology- [place] [address] [address] Vince Rachel MD [address] [address] Esophageal Stricture (Primary Dx); Dysphagia Social History Tobacco Use Types Packs/Day Years Used Date Smoking Tobacco: Never Assessed Sex and Gender Information Value Date Recorded Sex Assigned at Not on file Legal 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 CONTROL OFFICER MANAGER Gender Identity Not on file Sexual Orientation Not on file documented as of this encounter Plan of Treatment Not on file documented as of this encounter Visit Diagnoses Diagnosis Esophageal stricture- Primary Stricture and stenosis of esophagus Dysphagia documented in this encounter Care Teams Brewery Cellar Worker Relationship Specialty Start Date End Date Gildardo Roberts MD [address] [place] [address] PCP - General Family Practice 05/18/20 documented as of this encounter
--- OUTSIDE RECORDS SUMMARY | 2025-05-09 20:28 | XMS_ITS | Encounter Summary ---
Author Organization [facility] Address [address] [place] [address] Care Team Providers Care Oil Field Pipeline Supervisor Name Role Phone Gildardo Roberts MD Primary Care Provider [phone] Encounter Details Date Type Department Care Team (Latest Contact Info) Description 05/26/[address] [facility] Family Medicine Yasmine [address] [phone] Roger Mi Jr., MD [address] [place] [address] 248 [facility] [address] [place] [address] Benign hypertension (Primary Dx) Social History Tobacco Use Types Packs/Day Years Used Date Smoking Tobacco: Never Assessed Sex and Gender Information Value Date Recorded Sex Assigned at Not on file Legal 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 SENIOR TECHNICAL TRAINER Gender Identity Not on file Sexual Orientation Not on file documented as of this encounter Plan of Treatment Not on file documented as of this encounter Visit Diagnoses Diagnosis Benign hypertension- Primary Essential hypertension, benign documented in this encounter Care Teams Oil Field Pipeline Supervisor Relationship Specialty Start Date End Date Gildardo Roberts MD [address] [place] [address] PCP - General Family Practice 05/18/20 documented as of this encounter
--- OUTSIDE RECORDS SUMMARY | 2025-05-09 20:28 | XMS_ITS | Encounter Summary ---
Author Organization [facility] Address [address] [place] [address] Care Team Providers Care Entry Engineer Name Role Phone Gildardo Roberts MD Primary Care Provider Encounter Details Date Type Department Care Team (Latest Contact Info) Description 12/06/2005 Outpatient Historical [facility] Family Medicine Yasmine [address] [phone] Roger Mi Jr., MD [address] [place] [address] 248 [facility] [address] [place] [address] Lumbago (Primary Dx) Social History Tobacco Use Types Packs/Day Years Used Date Smoking Tobacco: Never Assessed Sex and Gender Information Value Date Recorded Sex Assigned at Not on file Legal 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
--- OUTSIDE RECORDS SUMMARY | 2025-05-09 20:28 | XMS_ITS | Encounter Summary ---
Author Organization [facility] Address [address] [place] [address] Care Team Providers Care Restaurant Lead Name Role Phone Gildardo Roberts MD Primary Care Provider [phone] Encounter Details Date Type Department Care Team (Late st Contact Info) Description 06/17/1997 Outpatient Historical [facility] Imaging Services[facility] [place] [address] [place] [phone] Social History Tobacco Use Types Packs/Day Years Used Date Smoking Tobacco: Never Assessed Sex and Gender Information Value Date Recorded Sex Assigned at Not on file Legal 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 FRONT OFFICE ATTENDANT Gender Identity Not on file Sexual Orientation Not on file documented as of this encounter Plan of Treatment Not on file documented as of this encounter Visit Diagnoses Not on filedocumented in this encounter Care Teams Restaurant Lead Relationship Specialty Start Date End Date Gildardo Roberts MD [address] [place] [address] PCP - General Family Practice 05/18/20 documented as of this encounter
--- OUTSIDE RECORDS SUMMARY | 2025-05-09 20:28 | XMS_ITS | Encounter Summary ---
Author Organization [facility] Address [address] [place] [address] Care Team Providers Care Reimbursement Analyst Name Role Phone Gildardo Roberts MD Primary Care Provider [phone] Encounter Details Date Type Department Care Team (Latest Contact Info) Description 06/04/2002 Outpatient Historical [facility] Family Medicine [address] [address] Liborio Amin MD NO ADDRESS ON FILE CONVULSIONS, OTHER (CMS/HCC) (Primary Dx) Social History Tobacco Use Types Packs/Day Years Used Date Smoking Tobacco: Never Assessed Sex and Gender Information Value Date Recorded Sex Assigned at Not on file Legal 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 DRY HOUSE WHEELER Gender Identity Not on file Sexual Orientation Not on file documented as of this encounter Plan of Treatment Not on file documented as of this encounter Visit Diagnoses Diagnosis Other convulsions- Primary documented in this encounter Care Teams Reimbursement Analyst Relationship Specialty Start Date End Date Gildardo Roberts MD [address] [place] [address] PCP - General Family Practice 05/18/20 documented as of this encounter
--- OUTSIDE RECORDS SUMMARY | 2025-05-09 20:28 | XMS_ITS | Encounter Summary ---
Author Organization [facility] Address [address] [facility] [facility] [address] [place]: Epic Prelude ADT [place] [address] Care Team Providers Care Quality Assurance Lab Technician Name Role Phone Gildardo Roberts MD Primary Care Provider [phone] Encounter Details Date Type Department Care Team (Late st Contact Info) Description 10/20/2005 Outpatient Historical Jacobo Barney MD NO ADDRESS ON FILE Unspecified Epilepsy without Mention of Intractable Epilepsy (CMS/HCC) (Primary Dx) Social History Tobacco Use Types Packs/Day Years Used Date Smoking Tobacco: Never Assessed Sex and Gender Information Value Date Recorded Sex Assigned at Not on file Legal 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 BLOWER INSTALLER Gender Identity Not on file Sexual Orientation Not on file documented as of this encounter Plan of Treatment Not on file documented as of this encounter Visit Diagnoses Diagnosis Unspecified epilepsy without mention of intractable epilepsy (CMS/HCC)- Primary Unspecified epilepsy without mention of intractable epilepsy documented in this encounter Care Teams Quality Assurance Lab Technician Relationship Specialty Start Date End Date Gildardo Roberts MD [address] [place] [address] PCP - General Family Practice 05/18/20 documented as of this encounter
--- OUTSIDE RECORDS SUMMARY | 2025-05-09 20:28 | XMS_ITS | Encounter Summary ---
Author Organization [facility] Address [address] [place] [address] Care Team Providers Care Anvil Worker Name Role Phone Gildardo Roberts MD Primary Care Provider [phone] Encounter Details Date Type Department Care Team (Latest Contact Info) Description 08/30/2006 Outpatient Historical [facility] Imaging Services-[facility] [place] [address] [place] [address] Roger Mi Jr., MD [address] [place] [address] 248 [facility] 140 [place] [address] Headache (Primary Dx) Social History Tobacco Use Types Packs/Day Years Used Date Smoking Tobacco: Never Assessed Sex and Gender Information Value Date Recorded Sex Assigned at Not on file Legal 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 CONTINUOUS PICKLING LINE PICKLER Gender Identity Not on file Sexual Orientation Not on file documented as of this encounter Plan of Treatment Not on file documented as of this encounter Procedures Procedure Name Priority Date/Time Associated Diagnosis Comments POC CREATININE Routine 08/30/2006 12:54 PM CONTINUOUS PICKLING LINE PICKLER CT HEAD W WO CONTRAST Routine 08/30/2006 12:16 PM CONTINUOUS PICKLING LINE PICKLER documented in this encounter Results * POC CREATININE (08/30/2006 12:54 PM CONTINUOUS PICKLING LINE PICKLER) CREATININE POC 0.8 0.7 - 1.5 mg/dL INTERFACE SYSTEM 08/30/2006 12:5 4 PM CONTINUOUS PICKLING LINE PICKLER us Roger Mi Jr., MD POINT OF CARE TESTING Edit ed INTERFACE SYSTEM Refer to clinic/hospital department * CT HEAD W WO CONTRAST (08/30/2006 12:16 PM CONTINUOUS PICKLING LINE PICKLER) Anatomical Region Laterality Modality Head Other 08/30/2006 12:1 6 PM CONTINUOUS PICKLING LINE PICKLER Narrative 08/30/2006 12:16 PM CONTINUOUS PICKLING LINE PICKLER Pre and postcontrast axial images were obtained through the brain. HISTORY: Chronic headaches on the right side. Ventricles are normal in size. No mass, hemorrhage or abnormal extra-axial fluid collection isidentified. The postcontrast images show no abnormal enhancement. No significant bony abnormalityis identified. IMPRESSION: Unremarkable exam. - Dictated By: Jovan Daiz M.D. Electronically Signed By: Jovan Diaz M.D. Date Signed: 08/31/06 Procedure Note 05/28/2009 Pre and postcontrast axial images were obtained through the brain. HISTORY: Chronic headaches on the right side. Ventricles are normal in size. No mass, hemorrhage or abnormal extra-axialfluid collection isidentified. The postcontrast images show no abnormal enhancement. No significant bonyabnormalityis identified. IMPRESSION: Unremarkable exam. - Dictated By: Jovan Diaz M.D. Electronically Signed By: Jovan Diaz M.D. Date Signed: 08/31/[address] ORDERABLES Final Result documented in this encounter Visit Diagnoses Diagnosis Headache(784.0)- Primary Headache documented in this encounter Care Teams Anvil Worker Relationship Specialty Start Date End Date Gildardo Roberts MD [address] [place] [address] PCP - General Family Practice 05/18/20 documented as of this encounter
--- OUTSIDE RECORDS SUMMARY | 2025-05-09 20:28 | XMS_ITS | Encounter Summary ---
Author Organization [facility] Address [address] [place] [address] Care Team Providers Care Media Producer Name Role Phone Gildardo Roberts MD Primary Care Provider [phone] Encounter Details Date Type Department Care Team (Latest Contact Info) Description 07/19/2005 Outpatient Historical [facility] Endoscopy [place] [address] [facility] [place] [address] [place] [address] Vince Rachel MD [address] [facility] [address] [place] [address] ESOPHAGEAL STRICTURE (Primary Dx) Social History Tobacco Use Types Packs/Day Years Used Date Smoking Tobacco: Never Assessed Sex and Gender Information Value Date Recorded Sex Assigned at Not on file Legal 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 ASSOCIATE DIRECTOR REGULATORY AFFAIRS Gender Identity Not on file Sexual Orientation Not on file documented as of this encounter Plan of Treatment Not on file documented as of this encounter Visit Diagnoses Diagnosis Stricture and stenosis of esophagus- Primary documented in this encounter Care Teams Media Producer Relationship Specialty Start Date End Date Gildardo Roberts MD [address] [place] [address] PCP - General Family Practice 05/18/20 documented as of this encounter
--- OUTSIDE RECORDS SUMMARY | 2025-05-09 20:28 | XMS_ITS | Encounter Summary ---
Author Organization [facility] Address [address] [place] [address] Care Team Providers Care Seam Steamer Name Role Phone Gildardo Roberts MD Primary Care Provider [phone] Encounter Details Date Type Department Care Team (Late st Contact Info) Description 09/30/2003 Outpatient Historical [facility] Family Medicine Yasmine [address] [phone] Liborio Amin MD NO ADDRESS ON FILE Social History Tobacco Use Types Packs/Day Years Used Date Smoking Tobacco: Never Assessed Sex and Gender Information Value Date Recorded Sex Assigned at Not on file Legal 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 TECHNICIAN TEST SYSTEMS Gender Identity Not on file Sexual Orientation Not on file documented as of this encounter Plan of Treatment Not on file documented as of this encounter Visit Diagnoses Not on filedocumented in this encounter Care Teams Seam Steamer Relationship Specialty Start Date End Date Gildardo Roberts MD [address], [place] [address] PCP - General Family Practice 05/18/20 documented as of this encounter
--- OUTSIDE RECORDS SUMMARY | 2025-05-09 20:28 | XMS_ITS | Encounter Summary ---
Author Organization [facility] Address [address] [place] [address] Care Team Providers Care Emergency Detail Driver Name Role Phone Gildardo Roberts MD Primary Care Provider [phone] Encounter Details Date Type Department Care Team (Late st Contact Info) Description 09/02/2004 Outpatient Historical [facility] Plastic [address] [place] [address] Rakesh Khan MD NO ADDRESS ON FILE BENIGN VJ SKIN FACE NEC (Primary Dx) Social History Tobacco Use Types Packs/Day Years Used Date Smoking Tobacco: Never Assessed Sex and Gender Information Value Date Recorded Sex Assigned at Not on file Legal 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 HEAD GAUGE UNIT OPERATOR Gender Identity Not on file Sexual Orientation Not on file documented as of this encounter Plan of Treatment Not on file documented as of this encounter Visit Diagnoses Diagnosis Benign neoplasm of skin of other and unspecified parts of face- Primary documented in this encounter Care Teams Emergency Detail Driver Relationship Specialty Start Date End Date Gildardo Roberts MD [address] [place] [address] PCP - General Family Practice 05/18/20 documented as of this encounter
--- OUTSIDE RECORDS SUMMARY | 2025-05-09 20:28 | XMS_ITS | Encounter Summary ---
Author Organization [facility] Address [address] [place] [address] Care Team Providers Care Corporate Sales Trainer Name Role Phone Gildardo Roberts MD Primary Care Provider [phone] Encounter Details Date Type Department Care Team (Latest Contact Info) Description 06/15/2004 Outpatient [facility] Gastroenterology[address] [place] [address] Mabel Jose, MACHINING ASSOCIATE [address] [place] [address] ABDOMINAL PAIN UNSPEC SITE (Primary Dx) Social History Tobacco Use Types Packs/Day Years Used Date Smoking Tobacco: Never Assessed Sex and Gender Information Value Date Recorded Sex Assigned at Not on file Legal 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 BODY AND FENDER MECHANIC APPRENTICE Gender Identity Not on file Sexual Orientation Not on file documented as of this encounter Plan of Treatment Not on file documented as of this encounter Visit Diagnoses Diagnosis Abdominal pain, unspecified site- Primary documented in this encounter Care Teams Corporate Sales Trainer Relationship Specialty Start Date End Date Gildardo Roberts MD [address] [place] [address] PCP - General Family Practice 05/18/20 documented as of this encounter
--- OUTSIDE RECORDS SUMMARY | 2025-05-09 20:28 | XMS_ITS | Encounter Summary ---
Author Organization [facility] Address [address] [place] [address] Care Team Providers Care Account Strategist Name Role Phone Gildardo Roberts MD Primary Care Provider [phone] Encounter Details Date Type Department Care Team (Latest Contact Info) Description 07/27/2004 Outpatient [facility] Gastroenterology[address] [place] [address] Mabel Jose, SHOE MAKER [address] [place] [address] GASTROINTEST HEMORR NOS (Primary Dx) Social History Tobacco Use Types Packs/Day Years Used Date Smoking Tobacco: Never Assessed Sex and Gender Information Value Date Recorded Sex Assigned at Not on file Legal 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 PARATRANSIT DRIVER Gender Identity Not on file Sexual Orientation Not on file documented as of this encounter Plan of Treatment Not on file documented as of this encounter Visit Diagnoses Diagnosis Hemorrhage of gastrointestinal tract, unspecified- Primary documented in this encounter Care Teams Account Strategist Relationship Specialty Start Date End Date Gildardo Roberts MD [address] [place] [address] PCP - General Family Practice 05/18/20 documented as of this encounter
--- OUTSIDE RECORDS SUMMARY | 2025-05-09 20:28 | XMS_ITS | Encounter Summary ---
Author Organization [facility] Address [address] [place] [address] Care Team Providers Care Scan Coordinator Name Role Phone Gildardo Roberts MD Primary Care Provider [phone] Encounter Details Date Type Department Care Team (Late st Contact Info) Description 05/17/2005 Outpatient Historical [facility] Family Medicine Yasmine [address] [address] Social History Tobacco Use Types Packs/Day Years Used Date Smoking Tobacco: Never Assessed Sex and Gender Information Value Date Recorded Sex Assigned at Not on file Legal 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 MANAGER GLOBAL Gender Identity Not on file Sexual Orientation Not on file documented as of this encounter Plan of Treatment Not on file documented as of this encounter Visit Diagnoses Not on filedocumented in this encounter Care Teams Scan Coordinator Relationship Specialty Start Date End Date Gildardo Roberts MD [address] [place] [address] PCP - General Family Practice 05/18/20 documented as of this encounter
--- OUTSIDE RECORDS SUMMARY | 2025-05-09 20:28 | XMS_ITS | Encounter Summary ---
Author Organization [facility] Address [address] [place] [address] Care Team Providers Care Tape Recorder Mechanic Name Role Phone Gildardo Roberts MD Primary Care Provider [phone] Encounter Details Date Type Department Care Team (Latest Contact Info) Description 09/30/2003 Outpatient Historical [facility] Family Medicine Yasmine [address] [address] Liborio Amin MD NO ADDRESS ON FILE HYPERLIPIDEMIA NEC/NOS (Primary Dx); AFTERCARE SKILLED NURSING USE MEDICATN Social History Tobacco Use Types Packs/Day Years Used Date Smoking Tobacco: Never Assessed Sex and Gender Information Value Date Recorded Sex Assigned at Not on file Legal 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 CLOTH WASHER OPERATOR Gender Identity Not on file Sexual Orientation Not on file documented as of this encounter Plan of Treatment Not on file documented as of this encounter Visit Diagnoses Diagnosis Other and unspecified hyperlipidemia- Primary Encounter for long-term (current) use of other medications documented in this encounter Care Teams Tape Recorder Mechanic Relationship Specialty Start Date End Date Gildardo Roberts MD [address] [place] [address] PCP - General Family Practice 05/18/20 documented as of this encounter
--- OUTSIDE RECORDS SUMMARY | 2025-05-09 20:28 | XMS_ITS | Encounter Summary ---
Author Organization [facility] Address [address] [place] [address] Care Team Providers Care Division Road Supervisor Name Role Phone Gildardo Roberts MD Primary Care Provider [phone] Encounter Details Date Type Department Care Team (Late st Contact Info) Description 04/17/2002 Outpatient Historical [facility] Occupational Medicine [address] [place] [phone] Social History Tobacco Use Types Packs/Day Years Used Date Smoking Tobacco: Never Assessed Sex and Gender Information Value Date Recorded Sex Assigned at Not on file Legal 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 SALES AND SUPPORT CENTER AGENT Gender Identity Not on file Sexual Orientation Not on file documented as of this encounter Plan of Treatment Not on file documented as of this encounter Visit Diagnoses Not on filedocumented in this encounter Care Teams Division Road Supervisor Relationship Specialty Start Date End Date Gildardo Roberts MD [address] [place] [address] PCP - General Family Practice 05/18/20 documented as of this encounter
--- OUTSIDE RECORDS SUMMARY | 2025-05-09 20:28 | XMS_ITS | Encounter Summary ---
Author Organization [facility] Address [address] [place] [address] Care Team Providers Care Rod Tape Operator Name Role Phone Gildardo Roberts MD Primary Care Provider [phone] Encounter Details Date Type Department Care Team (Late st Contact Info) Description 06/10/2002 Outpatient Historical [facility] Family Medicine Yasmine [address] [phone] Liborio Amin MD NO ADDRESS ON FILE Social History Tobacco Use Types Packs/Day Years Used Date Smoking Tobacco: Never Assessed Sex and Gender Information Value Date Recorded Sex Assigned at Not on file Legal 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 SEMICONDUCTOR PROCESSOR Gender Identity Not on file Sexual Orientation Not on file documented as of this encounter Plan of Treatment Not on file documented as of this encounter Visit Diagnoses Not on filedocumented in this encounter Care Teams Rod Tape Operator Relationship Specialty Start Date End Date Gildardo Roberts MD [address], [place] [address] PCP - General Family Practice 05/18/20 documented as of this encounter
--- OUTSIDE RECORDS SUMMARY | 2025-05-09 20:28 | XMS_ITS | Encounter Summary ---
Author Organization [facility] Address [address] [place] [address] Care Team Providers Care Broadcast Systems Engineer Name Role Phone Gildardo Roberts MD Primary Care Provider [phone] Encounter Details Date Type Department Care Team (Latest Contact Info) Description 08/08/2004 Outpatient Historical [facility] Neurology [address] [facility] [address] [place] [address] Jacobo Barney MD NO ADDRESS ON FILE GEN CONVUL EPI W/O MENTN INTRACT (CMS/HCC) (Primary Dx) Social History Tobacco Use Types Packs/Day Years Used Date Smoking Tobacco: Never Assessed Sex and Gender Information Value Date Recorded Sex Assigned at Not on file Legal 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 ELECTROPHYSIOLOGY TECHNOLOGIST Gender Identity Not on file Sexual Orientation Not on file documented as of this encounter Plan of Treatment Not on file documented as of this encounter Visit Diagnoses Diagnosis 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
--- OUTSIDE RECORDS SUMMARY | 2025-05-09 20:28 | XMS_ITS | Encounter Summary ---
Author Organization [facility] Address [address] [place] [address] Care Team Providers Care Event Lighting Specialist Name Role Phone Gildardo Roberts MD Primary Care Provider [phone] Reason for Visit * Reason Comments Medication Refill Encounter Details Date Type Department Care Team ([facility] st Contact Info) Description 05/29/2018 Refill [facility] Physical Medicine and Rehab [address] [address] Ambar Grayson, CALL CENTER DISPATCHER [address] [place] [address] Social History Tobacco Use Types Packs/Day Years Used Date Smoking Tobacco: Former Cigars Q uit: 09/29/2012 Smokeless Tobacco: Current Chew Alcohol Use Standard Drinks/Week Comments No 18 (1 standard drink = 0.6 oz pure alcohol) has quit using alchohol since stroke Sex and Gender Information Value Date Recorded Sex Assigned at Not on file Legal 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 FRESH FOODS CLERK Gender Identity Not on file Sexual Orientation Not on file Occupation Industry Job Start Date Job End Date Not on file Not on file Not on file Not on file Not on file Not on file Not on file Not on file Not on file Not on file Not on file Not on file Not on file Not on file Not on file Not on file Not on file Not on file Not on file Not on file documented as of this encounter Miscellaneous Notes * Telephone Encounter - Maria De Jesus Perez - 06/04/2018 2:09 PM CST appt scheduled for 06-10-18 at 0930. Pt agrees H FOODS CLERK * Telephone Encounter - Ivy Russo - 05/29/2018 9:15 AM CST * Patient needs follow up scheduled for future refills Patient notified office requesting a medication refill. Medication is: Keppra and Baclofen Last fill date: 03/25/18 & 02/26/18 Quantity prescribed 120 & 120 Number of refills: 1 & 2 Is this an early refill request? No If yes - Post date for Last appt date: 12/2017 With Ambar Valentine appt date: Not scheduled Patients preferred pharmacy is: [id number] - [place], [place] - [address], [address] [facility] [id number] [place] [address] [facility] [address] [place] [address] [address] [facility] [place], [place] - [address] [place], [place] - [address] [facility]. Confirmed address: [address] [address] H FOODS CLERK documented in this encounter Plan of Treatment Not on file documented as of this encounter Visit Diagnoses Not on filedocumented in this encounter Care Teams Event Lighting Specialist Relationship Specialty Start Date End Date Gildardo Roberts MD [address] [place] [address] PCP - General Family Practice 05/18/20 documented as of this encounter
--- OUTSIDE RECORDS SUMMARY | 2025-05-09 20:28 | XMS_ITS | Encounter Summary ---
Author Organization [facility] Address [address] [place] [address] Care Team Providers Care Refrigerator Cabinetmaker Name Role Phone Gildardo Roberts MD Primary Care Provider [phone] Encounter Details Date Type Department Care Team (Latest Contact Info) Description 01/30/2005 Outpatient Historical [facility] Neurology [address] [facility] [address] [place] [address] Jacobo Barney MD NO ADDRESS ON FILE GEN CONVUL EPI W/O MENTN INTRACT (CMS/HCC) (Primary Dx) Social History Tobacco Use Types Packs/Day Years Used Date Smoking Tobacco: Never Assessed Sex and Gender Information Value Date Recorded Sex Assigned at Not on file Legal 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 MANAGER DEPARTMENT Gender Identity Not on file Sexual Orientation Not on file documented as of this encounter Plan of Treatment Not on file documented as of this encounter Visit Diagnoses Diagnosis 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
--- OUTSIDE RECORDS SUMMARY | 2025-05-09 20:28 | XMS_ITS | Encounter Summary ---
Author Organization [facility] Address [address] [place] [address] Care Team Providers Care Pcu Rn Name Role Phone Gildardo Roberts MD Primary Care Provider [phone] Encounter Details Date Type Department Care Team (Latest Contact Info) Description 08/19/2003 Outpatient Historical [facility] Family Medicine [address] [address] Liborio Amni MD NO ADDRESS ON FILE CONVULSIONS, OTHER (CMS/HCC) (Primary Dx) Social History Tobacco Use Types Packs/Day Years Used Date Smoking Tobacco: Never Assessed Sex and Gender Information Value Date Recorded Sex Assigned at Not on file Legal 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
--- OUTSIDE RECORDS SUMMARY | 2025-05-09 20:28 | XMS_ITS | Encounter Summary ---
Author Organization [facility] Address [address] [place] [address] Care Team Providers Care Major League Baseball Umpire Name Role Phone Gildardo Roberts MD Primary Care Provider [phone] Encounter Details Date Type Department Care Team (Latest Contact Info) Description 08/03/2003 Outpatient Historical [facility] Family Medicine Yasmine [address] [address] Liborio Amin MD NO ADDRESS ON FILE HYPERLIPIDEMIA NEC/NOS (Primary Dx) Social History Tobacco Use Types Packs/Day Years Used Date Smoking Tobacco: Never Assessed Sex and Gender Information Value Date Recorded Sex Assigned at Not on file Legal 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 FULL STACK DEVELOPER Gender Identity Not on file Sexual Orientation Not on file documented as of this encounter Plan of Treatment Not on file documented as of this encounter Visit Diagnoses Diagnosis Other and unspecified hyperlipidemia- Primary documented in this encounter Care Teams Major League Baseball Umpire Relationship Specialty Start Date End Date Gildardo Roberts MD [address] [place] [address] PCP - General Family Practice 05/18/20 documented as of this encounter
--- OUTSIDE RECORDS SUMMARY | 2025-05-09 20:28 | XMS_ITS | Encounter Summary ---
Author Organization [facility] Address [address] [place] [address] Care Team Providers Care Installment Account Checker Name Role Phone Gildardo Roberts MD Primary Care Provider [phone] Encounter Details Date Type Department Care Team (Latest Contact Info) Description 03/20/2007 Outpatient Historical [facility] Gastroenterology- [place] [address] [address] Vince Rachel MD [address] [address] Dysphagia (Primary Dx); Esophageal Stricture Social History Tobacco Use Types Packs/Day Years Used Date Smoking Tobacco: Never Assessed Sex and Gender Information Value Date Recorded Sex Assigned at Not on file Legal 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 CRIMINAL RESEARCH SPECIALIST Gender Identity Not on file Sexual Orientation Not on file documented as of this encounter Plan of Treatment Not on file documented as of this encounter Visit Diagnoses Diagnosis Dysphagia- Primary Esophageal stricture Stricture and stenosis of esophagus documented in this encounter Care Teams Installment Account Checker Relationship Specialty Start Date End Date Gildardo Roberts MD [address] [place] [address] PCP - General Family Practice 05/18/20 documented as of this encounter
--- OUTSIDE RECORDS SUMMARY | 2025-05-09 20:28 | XMS_ITS | Encounter Summary ---
Author Organization [facility] Address [address] [place] [address] Care Team Providers Care Attending Anesthesiologist Name Role Phone Gildardo Roberts MD Primary Care Provider [phone] Encounter Details Date Type Department Care Team (Latest Contact Info) Description 04/26/2005 Outpatient Historical [facility] Family Medicine Yasmine [address] [phone] Roger Mi Jr., MD [address] [place] [address] [address] [facility] [address] [place] [address] Benign hypertension (Primary Dx); ACUTE URI NOS Social History Tobacco Use Types Packs/Day Years Used Date Smoking Tobacco: Never Assessed Sex and Gender Information Value Date Recorded Sex Assigned at Not on file Legal 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 INDIAN TRADER Gender Identity Not on file Sexual Orientation Not on file documented as of this encounter Plan of Treatment Not on file documented as of this encounter Visit Diagnoses Diagnosis Benign hypertension- Primary Essential hypertension, benign Acute upper respiratory infections of unspecified site documented in this encounter Care Teams Attending Anesthesiologist Relationship Specialty Start Date End Date Gildardo Roberts MD [address] [place] [address] PCP - General Family Practice 05/18/20 documented as of this encounter
--- OUTSIDE RECORDS SUMMARY | 2025-05-09 20:28 | XMS_ITS | Encounter Summary ---
Author Organization [facility] Address [address] [place] [address] Care Team Providers Care Telecommunications Clerk Name Role Phone Gildardo Roberts MD Primary Care Provider [phone] Encounter Details Date Type Department Care Team (Latest Contact Info) Description 09/05/2004 Outpatient Historical [facility] [address] [facility] [address] [place] [address] Jacobo Barney MD NO ADDRESS ON FILE PSYCHO EPI W/O MENTN INTRACTABLE (CMS/HCC) (Primary Dx) Social History Tobacco Use Types Packs/Day Years Used Date Smoking Tobacco: Never Assessed Sex and Gender Information Value Date Recorded Sex Assigned at Not on file Legal 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 INTERNET 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
--- OUTSIDE RECORDS SUMMARY | 2025-05-09 20:28 | XMS_ITS | Encounter Summary ---
Author Organization [facility] Address [address] [place] [address] Care Team Providers Care Chemical Mixer Name Role Phone Gildardo Roberts MD Primary Care Provider [phone] Encounter Details Date Type Department Care Team (Latest Contact Info) Description 08/29/2006 Outpatient Historical [facility] Family Medicine Yasmine [address] [phone] Roger Mi Jr., MD [address] [place] [address] [address] [facility] [address] [place] [address] Common Migraine without Mention of Intractable Migraine (Primary Dx); Benign Hypertension Social History Tobacco Use Types Packs/Day Years Used Date Smoking Tobacco: Never Assessed Sex and Gender Information Value Date Recorded Sex Assigned at Not on file Legal 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
--- OUTSIDE RECORDS SUMMARY | 2025-05-09 20:28 | XMS_ITS | Encounter Summary ---
Author Organization [facility] Address [address] [place] [address] Care Team Providers Care Senior Web Engineer Name Role Phone Gildardo Roberts MD Primary Care Provider [phone] Encounter Details Date Type Department Care Team (Latest Contact Info) Description 03/28/2007 Outpatient Historical [facility] [place] [address] [facility] [place] [address] [place] [address] Vince Rachel MD [address] [facility] [address] [place] [address] Stricture and Stenosis of Esophagus (Primary Dx) Social History Tobacco Use Types Packs/Day Years Used Date Smoking Tobacco: Never Assessed Sex and Gender Information Value Date Recorded Sex Assigned at Not on file Legal 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 THERAPIST Gender Identity Not on file Sexual Orientation Not on file documented as of this encounter Plan of Treatment Not on file documented as of this encounter Visit Diagnoses Diagnosis Stricture and stenosis of esophagus- Primary documented in this encounter Care Teams Senior Web Engineer Relationship Specialty Start Date End Date Gildardo Roberts MD [address] [place] [address] PCP - General Family Practice 05/18/20 documented as of this encounter
--- OUTSIDE RECORDS SUMMARY | 2025-05-09 20:28 | XMS_ITS | Encounter Summary ---
Author Organization [facility] Address [address] [place] [address] Care Team Providers Care Primary Montessori Teacher Name Role Phone Gildardo Roberts MD Primary Care Provider [phone] Encounter Details Date Type Department Care Team (Late st Contact Info) Description 04/08/2006 Emergency [facility] Emergency Department [address] [place] [phone] Jose Barrientos MD [address] [place] [address] Open Wound of Hand (Primary Dx) Social History Tobacco Use Types Packs/Day Years Used Date Smoking Tobacco: Never Assessed Sex and Gender Information Value Date Recorded Sex Assigned at Not on file Legal 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 VISITOR SERVICES TECHNICIAN Gender Identity Not on file Sexual Orientation Not on file documented as of this encounter Plan of Treatment Not on file documented as of this encounter Visit Diagnoses Diagnosis Open wound of hand except finger(s) alone, without mention of complication- Primary documented in this encounter Care Teams Primary Montessori Teacher Relationship Specialty Start Date End Date Gildardo Roberts MD [address] [place] [address] PCP - General Family Practice 05/18/20 documented as of this encounter
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
--- OUTSIDE RECORDS SUMMARY | 2025-05-09 20:28 | XMS_ITS | Encounter Summary ---
Author Organization [facility] Address [address] [place] [address] Care Team Providers Care Heel Sander Name Role Phone Gildardo Roberts MD Primary Care Provider [phone] Encounter Details Date Type Department Care Team (Latest Contact Info) Description 01/16/2006 Outpatient Historical [facility] Family Medicine Yasmine [address] [phone] Roger Mi Jr., MD [address] [place] [address] 248 [facility] [address] [place] [phone] Unspecified Temporomandibular Joint Disorders (Primary Dx) Social History Tobacco Use Types Packs/Day Years Used Date Smoking Tobacco: Never Assessed Sex and Gender Information Value Date Recorded Sex Assigned at Not on file Legal 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
--- OUTSIDE RECORDS SUMMARY | 2025-05-09 20:29 | XMS_ITS | Encounter Summary ---
Author Organization [facility] Address [address] [place] [address] Care Team Providers Care Weigh And Charge Worker Name Role Phone Gildardo Roberts MD Primary Care Provider [phone] Encounter Details Date Type Department Care Team (Latest Contact Info) Description 03/10/1999 Outpatient Historical [facility] Family Medicine Yasmine [address] [address] Liborio Amin MD NO ADDRESS ON FILE Hematuria (Primary Dx); Unspecified essential hypertension Social History Tobacco Use Types Packs/Day Years Used Date Smoking Tobacco: Never Assessed Sex and Gender Information Value Date Recorded Sex Assigned at Not on file Legal 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 DIRECTOR OF PROPERTY MANAGEMENT Gender Identity Not on file Sexual Orientation Not on file documented as of this encounter Plan of Treatment Not on file documented as of this encounter Visit Diagnoses Diagnosis Hematuria- Primary Unspecified essential hypertension documented in this encounter Care Teams Weigh And Charge Worker Relationship Specialty Start Date End Date Gildardo Roberts MD [address] [place] [address] PCP - General Family Practice 05/18/20 documented as of this encounter
--- OUTSIDE RECORDS SUMMARY | 2025-05-09 20:29 | XMS_ITS | Encounter Summary ---
Author Organization [facility] Address [address] [place] [address] Care Team Providers Care Solvent Plant Treater Name Role Phone Gildardo Roberts MD Primary Care Provider [phone] Encounter Details Date Type Department Care Team (Latest Contact Info) Description 03/28/1999 Outpatient Historical [facility]- [place] [address] [facility] [address] 3rd [place] [address] Misael Ghosh MD [address] [facility] [address] [place] [address] Abdominal pain, unspecified site (Primary Dx); Hematuria Social History Tobacco Use Types Packs/Day Years Used Date Smoking Tobacco: Never Assessed Sex and Gender Information Value Date Recorded Sex Assigned at Not on file Legal 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 PHYSICIAN PRIMARY CARE SPORTS MEDICINE Gender Identity Not on file Sexual Orientation Not on file documented as of this encounter Plan of Treatment Not on file documented as of this encounter Visit Diagnoses Diagnosis Abdominal pain, unspecified site- Primary Hematuria documented in this encounter Care Teams Solvent Plant Treater Relationship Specialty Start Date End Date Gildardo Roberts MD [address] [place] [phone] PCP - General Family Practice 05/18/20 documented as of this encounter
--- OUTSIDE RECORDS SUMMARY | 2025-05-09 20:29 | XMS_ITS | Encounter Summary ---
Author Organization [facility] Address [address] [place] [address] Care Team Providers Care Cushion Builder Name Role Phone Gildardo Roberts MD Primary Care Provider [phone] Encounter Details Date Type Department Care Team (Latest Contact Info) Description 09/16/2001 Outpatient Historical [facility] Family Medicine [address] [address] Liborio Amin MD NO ADDRESS ON FILE CONVULSIONS, OTHER (CMS/HCC) (Primary Dx); ADV EFFECT MED/BIOL SUB NOS Social History Tobacco Use Types Packs/Day Years Used Date Smoking Tobacco: Never Assessed Sex and Gender Information Value Date Recorded Sex Assigned at Not on file Legal 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 TRAFFIC CONTROL TECHNICIAN Gender Identity Not on file Sexual Orientation Not on file documented as of this encounter Plan of Treatment Not on file documented as of this encounter Visit Diagnoses Diagnosis Other convulsions- Primary Other and unspecified adverse effect of drug, medicinal and biological substance documented in this encounter Care Teams Cushion Builder Relationship Specialty Start Date End Date Gildardo Roberts MD [address] [place] [address] PCP - General Family Practice 05/18/20 documented as of this encounter
--- OUTSIDE RECORDS SUMMARY | 2025-05-09 20:29 | XMS_ITS | Encounter Summary ---
Author Organization [facility] Address [address] [place] [address] Care Team Providers Care Criminal Court Judge Name Role Phone Gildardo Roberts MD Primary Care Provider [phone] Encounter Details Date Type Department Care Team (Latest Contact Info) Description 05/03/1998 Outpatient Historical [facility] Misael Bautista MD [address] [place] [phone] Closed fracture of shaft of radius (alone) (Primary Dx); Follow-up examination following surgery Social History Tobacco Use Types Packs/Day Years Used Date Smoking Tobacco: Never Assessed Sex and Gender Information Value Date Recorded Sex Assigned at Not on file Legal 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 MANAGER PORT Gender Identity Not on file Sexual Orientation Not on file documented as of this encounter Plan of Treatment Not on file documented as of this encounter Visit Diagnoses Diagnosis Closed fracture of shaft of radius (alone)- Primary Follow-up examination following surgery documented in this encounter Care Teams Criminal Court Judge Relationship Specialty Start Date End Date Gildardo Roberts MD [address] [place] [address] PCP - General Family Practice 05/18/20 documented as of this encounter
--- OUTSIDE RECORDS SUMMARY | 2025-05-09 20:29 | XMS_ITS | Encounter Summary ---
Author Organization [facility] Address [address] [place] [address] Care Team Providers Care Criminal Intelligence Specialist Name Role Phone Gildardo Roberts MD Primary Care Provider [phone] Encounter Details Date Type Department Care Team (Latest Contact Info) Description 09/20/1999 Outpatient Historical [facility] Family Medicine [address] [address] Liborio Amin MD NO ADDRESS ON FILE Contact dermatitis and other eczema, due to unspecified cause (Primary Dx) Social History Tobacco Use Types Packs/Day Years Used Date Smoking Tobacco: Never Assessed Sex and Gender Information Value Date Recorded Sex Assigned at Not on file Legal 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 TELEGRAPH SERVICE CLERK Gender Identity Not on file Sexual Orientation Not on file documented as of this encounter Plan of Treatment Not on file documented as of this encounter Visit Diagnoses Diagnosis Contact dermatitis and other eczema, due to unspecified cause- Primary documented in this encounter Care Teams Criminal Intelligence Specialist Relationship Specialty Start Date End Date Gildardo Roberts MD [address] [place] [address] PCP - General Family Practice 05/18/20 documented as of this encounter
--- OUTSIDE RECORDS SUMMARY | 2025-05-09 20:29 | XMS_ITS | Encounter Summary ---
Author Organization [facility] Address [address] [place] [address] Care Team Providers Care Faculty Neuropsychologist Name Role Phone Gildardo Roberts MD Primary Care Provider [phone] Encounter Details Date Type Department Care Team (Latest Contact Info) Description 11/29/1999 Outpatient Historical [facility] Family Medicine [address] [address] Liborio Amin MD NO ADDRESS ON FILE Encounter for long-term (current) use of other medications (Primary Dx); Febrile convulsions (simple), unspecified (CMS/HCC) Social History Tobacco Use Types Packs/Day Years Used Date Smoking Tobacco: Never Assessed Sex and Gender Information Value Date Recorded Sex Assigned at Not on file Legal 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 BLOOD BANK LABORATORY TECHNOLOGIST Gender Identity Not on file Sexual Orientation Not on file documented as of this encounter Plan of Treatment Not on file documented as of this encounter Visit Diagnoses Diagnosis Encounter for long-term (current) use of other medications- Primary Febrile convulsions (simple), unspecified (CMS/HCC) Febrile convulsions (simple), unspecified documented in this encounter Care Teams Faculty Neuropsychologist Relationship Specialty Start Date End Date Gildardo Roberts MD [address] [place] [address] PCP - General Family Practice 05/18/20 documented as of this encounter
--- OUTSIDE RECORDS SUMMARY | 2025-05-09 20:29 | XMS_ITS | Encounter Summary ---
Author Organization [facility] Address [address] [place] [address] Care Team Providers Care Welfare Supervisor Name Role Phone Gildardo Roberts MD Primary Care Provider [phone] Encounter Details Date Type Department Care Team (Latest Contact Info) Description 08/08/1997 Outpatient Historical [facility] Urgent Care- [facility] [address] [place] [address] Alicia Crowell, DO NO ADDRESS ON FILE Open wound of mouth, unspecified site, without mention of complication (Primary Dx) Social History Tobacco Use Types Packs/Day Years Used Date Smoking Tobacco: Never Assessed Sex and Gender Information Value Date Recorded Sex Assigned at Not on file Legal 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 WATER TEAM LEADER Gender Identity Not on file Sexual Orientation Not on file documented as of this encounter Plan of Treatment Not on file documented as of this encounter Visit Diagnoses Diagnosis Open wound of mouth, unspecified site, without mention of complication- Primary documented in this encounter Care Teams Welfare Supervisor Relationship Specialty Start Date End Date Gildardo Roberts MD [address] [place] [address] PCP - General Family Practice 05/18/20 documented as of this encounter
--- OUTSIDE RECORDS SUMMARY | 2025-05-09 20:29 | XMS_ITS | Encounter Summary ---
Author Organization [facility] Address [address] [place] [address] Care Team Providers Care Paper Cup Handle Machine Operator Name Role Phone Gildardo Roberts MD Primary Care Provider [phone] Encounter Details Date Type Department Care Team (Latest Contact Info) Description 01/05/2000 Outpatient Historical [facility] Charlie Burciaga R, DO [address] [place] [address] Other convulsions (Primary Dx) Social History Tobacco Use Types Packs/Day Years Used Date Smoking Tobacco: Never Assessed Sex and Gender Information Value Date Recorded Sex Assigned at Not on file Legal 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 VP Gender Identity Not on file Sexual Orientation Not on file documented as of this encounter Plan of Treatment Not on file documented as of this encounter Visit Diagnoses Diagnosis Other convulsions- Primary documented in this encounter Care Teams Paper Cup Handle Machine Operator Relationship Specialty Start Date End Date Gildardo Roberts MD [address] [place] [address] PCP - General Family Practice 05/18/20 documented as of this encounter
--- OUTSIDE RECORDS SUMMARY | 2025-05-09 20:29 | XMS_ITS | Encounter Summary ---
Author Organization [facility] Address [address] [place] [address] Care Team Providers Care Lunch Truck Operator Name Role Phone Gildardo Roberts MD Primary Care Provider [phone] Encounter Details Date Type Department Care Team (Latest Contact Info) Description 05/18/1999 Outpatient Historical [facility]- [place] [address] [facility] [address] 3rd [place] [address] Misael Ghosh MD [address] [facility] [address] [place] [address] Abdominal pain, unspecified site (Primary Dx) Social History Tobacco Use Types Packs/Day Years Used Date Smoking Tobacco: Never Assessed Sex and Gender Information Value Date Recorded Sex Assigned at Not on file Legal 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 QUANTITY SURVEYOR Gender Identity Not on file Sexual Orientation Not on file documented as of this encounter Plan of Treatment Not on file documented as of this encounter Visit Diagnoses Diagnosis Abdominal pain, unspecified site- Primary documented in this encounter Care Teams Lunch Truck Operator Relationship Specialty Start Date End Date Gildardo Roberts MD [address] [place] [address] PCP - General Family Practice 05/18/20 documented as of this encounter
--- OUTSIDE RECORDS SUMMARY | 2025-05-09 20:29 | XMS_ITS | Encounter Summary ---
Author Organization [facility] Address [address] [place] [address] Care Team Providers Care Photo Lab Specialist Name Role Phone Gildardo Roberts MD Primary Care Provider [phone] Encounter Details Date Type Department Care Team (Latest Contact Info) Description 07/21/1998 Outpatient Historical [facility] Family Medicine Yasmine [address] [address] Liborio Amin MD NO ADDRESS ON FILE Headache(784.0) (Primary Dx); Esophagitis, unspecified; Benign hypertension Social History Tobacco Use Types Packs/Day Years Used Date Smoking Tobacco: Never Assessed Sex and Gender Information Value Date Recorded Sex Assigned at Not on file Legal 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 REGULATORY COMPLIANCE COORDINATOR Gender Identity Not on file Sexual Orientation Not on file documented as of this encounter Plan of Treatment Not on file documented as of this encounter Visit Diagnoses Diagnosis Headache(784.0)- Primary Headache Esophagitis, unspecified Benign hypertension Essential hypertension, benign documented in this encounter Care Teams Photo Lab Specialist Relationship Specialty Start Date End Date Gildardo Roberts MD [address] [place] [address] PCP - General Family Practice 05/18/20 documented as of this encounter
--- OUTSIDE RECORDS SUMMARY | 2025-05-09 20:29 | XMS_ITS | Encounter Summary ---
Author Organization [facility] Address [address] [place] [address] Care Team Providers Care Vision Therapist Name Role Phone Gildardo Roberts MD Primary Care Provider [phone] Encounter Details Date Type Department Care Team (Latest Contact Info) Description 09/10/2000 Outpatient Historical [facility] Family Medicine Yasmine [address] [phone] Liborio Amin MD NO ADDRESS ON FILE Other convulsions (Primary Dx) Social History Tobacco Use Types Packs/Day Years Used Date Smoking Tobacco: Never Assessed Sex and Gender Information Value Date Recorded Sex Assigned at Not on file Legal 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 MANAGER OF LEARNING Gender Identity Not on file Sexual Orientation Not on file documented as of this encounter Plan of Treatment Not on file documented as of this encounter Visit Diagnoses Diagnosis Other convulsions- Primary documented in this encounter Care Teams Vision Therapist Relationship Specialty Start Date End Date Gildardo Roberts MD [address] [place] [address] PCP - General Family Practice 05/18/20 documented as of this encounter
--- OUTSIDE RECORDS SUMMARY | 2025-05-09 20:29 | XMS_ITS | Encounter Summary ---
Author Organization [facility] Address [address] [place] [address] Care Team Providers Care Dispensing Optician Name Role Phone Gildardo Roberts MD Primary Care Provider [phone] Encounter Details Date Type Department Care Team (Latest Contact Info) Description 09/10/2001 Outpatient Historical [facility] Family Medicine Yasmine [address] [address] Liborio Amin MD NO ADDRESS ON FILE AFTERCARE CREASING AND CUTTING PRESS FEEDER USE MEDICATN (Primary Dx); HYPERLIPIDEMIA NEC/NOS Social History Tobacco Use Types Packs/Day Years Used Date Smoking Tobacco: Never Assessed Sex and Gender Information Value Date Recorded Sex Assigned at Not on file Legal 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 GOLD BUYER Gender Identity Not on file Sexual Orientation Not on file documented as of this encounter Plan of Treatment Not on file documented as of this encounter Visit Diagnoses Diagnosis Encounter for long-term (current) use of other medications- Primary Other and unspecified hyperlipidemia documented in this encounter Care Teams Dispensing Optician Relationship Specialty Start Date End Date Gildardo Roberts MD [address] [place] [address] PCP - General Family Practice 05/18/20 documented as of this encounter
--- OUTSIDE RECORDS SUMMARY | 2025-05-09 20:29 | XMS_ITS | Encounter Summary ---
Author Organization [facility] Address [address] [place] [address] Care Team Providers Care Holistic Pulser Name Role Phone Gildardo Roberts MD Primary Care Provider [phone] Encounter Details Date Type Department Care Team (Latest Contact Info) Description 10/23/[address] [facility] Family Medicine [address] [address] Liborio Amin MD NO ADDRESS ON FILE Other convulsions (Primary Dx); Encounter for long-term (current) use of other medications Social History Tobacco Use Types Packs/Day Years Used Date Smoking Tobacco: Never Assessed Sex and Gender Information Value Date Recorded Sex Assigned at Not on file Legal 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 RECEIVING ASSOCIATE Gender Identity Not on file Sexual Orientation Not on file documented as of this encounter Plan of Treatment Not on file documented as of this encounter Visit Diagnoses Diagnosis Other convulsions- Primary Encounter for long-term (current) use of other medications documented in this encounter Care Teams Holistic Pulser Relationship Specialty Start Date End Date Gildardo Roberts MD [address] [place] [address] PCP - General Family Practice 05/18/20 documented as of this encounter
--- OUTSIDE RECORDS SUMMARY | 2025-05-09 20:29 | XMS_ITS | Encounter Summary ---
Author Organization [facility] Address [address] [place] [address] Care Team Providers Care Solar Energy System Installer Name Role Phone Gildardo Roberts MD Primary Care Provider [phone] Encounter Details Date Type Department Care Team (Latest Contact Info) Description 08/23/1998 Outpatient Historical [facility] Misael Bautista MD [address] [place] [phone] Closed fracture of shaft of radius (alone) (Primary Dx); Surgical convalescence Social History Tobacco Use Types Packs/Day Years Used Date Smoking Tobacco: Never Assessed Sex and Gender Information Value Date Recorded Sex Assigned at Not on file Legal 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 TREATING INSPECTOR Gender Identity Not on file Sexual Orientation Not on file documented as of this encounter Plan of Treatment Not on file documented as of this encounter Visit Diagnoses Diagnosis Closed fracture of shaft of radius (alone)- Primary Surgical convalescence Convalescence following surgery documented in this encounter Care Teams Solar Energy System Installer Relationship Specialty Start Date End Date Gildardo Roberts MD [address] [place] [address] PCP - General Family Practice 05/18/20 documented as of this encounter
--- OUTSIDE RECORDS SUMMARY | 2025-05-09 20:29 | XMS_ITS | Encounter Summary ---
Author Organization [facility] Address [address] [place] [address] Care Team Providers Care Media Clerk Name Role Phone Gildardo Roberts MD Primary Care Provider [phone] Encounter Details Date Type Department Care Team (Late st Contact Info) Description 05/24/2007 Outpatient Historical [facility] Misael Ghosh MD [address] [address] Social History Tobacco Use Types Packs/Day Years Used Date Smoking Tobacco: Never Assessed Sex and Gender Information Value Date Recorded Sex Assigned at Not on file Legal 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 X RAY EQUIPMENT TESTER Gender Identity Not on file Sexual Orientation Not on file documented as of this encounter Plan of Treatment Not on file documented as of this encounter Visit Diagnoses Not on filedocumented in this encounter Care Teams Media Clerk Relationship Specialty Start Date End Date Gildardo Roberts MD [address] [place] [address] PCP - General Family Practice 05/18/20 documented as of this encounter
--- OUTSIDE RECORDS SUMMARY | 2025-05-09 20:29 | XMS_ITS | Encounter Summary ---
Author Organization [facility] Address [address] [place] [address] Care Team Providers Care Laboratory Equipment Cleaner Name Role Phone Gildardo Roberts MD Primary Care Provider Encounter Details Date Type Department Care Team (Latest Contact Info) Description 11/15/1998 Outpatient Historical [facility] Family Medicine [address] [address] Liborio Amin MD NO ADDRESS ON FILE Sprain lumbosacral (Primary Dx); Unspecified essential hypertension Social History Tobacco Use Types Packs/Day Years Used Date Smoking Tobacco: Never Assessed Sex and Gender Information Value Date Recorded Sex Assigned at Not on file Legal 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 AERIAL SURVEY TECHNICIAN Gender Identity Not on file Sexual Orientation Not on file documented as of this encounter Plan of Treatment Not on file documented as of this encounter Visit Diagnoses Diagnosis Sprain lumbosacral- Primary Sprain of lumbosacral (joint) (ligament) Unspecified essential hypertension documented in this encounter Care Teams Laboratory Equipment Cleaner Relationship Specialty Start Date End Date Gildardo Roberts MD [address] [place] [address] PCP - General Family Practice 05/18/20 documented as of this encounter
--- OUTSIDE RECORDS SUMMARY | 2025-05-09 20:29 | XMS_ITS | Encounter Summary ---
Author Organization [facility] Address [address] [place] [address] Care Team Providers Care Zinc Skimmer Name Role Phone Gildardo Roberts MD Primary Care Provider [phone] Encounter Details Date Type Department Care Team (Latest Contact Info) Description 04/14/2002 Outpatient Historical [facility] Ear, Nose and Throat [address] [place] [phone] Yossi Sullivan MD NO ADDRESS ON FILE ALLERGIC RHINITIS NOS (Primary Dx) Social History Tobacco Use Types Packs/Day Years Used Date Smoking Tobacco: Never Assessed Sex and Gender Information Value Date Recorded Sex Assigned at Not on file Legal 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 CNC SPECIALIST Gender Identity Not on file Sexual Orientation Not on file documented as of this encounter Plan of Treatment Not on file documented as of this encounter Visit Diagnoses Diagnosis Allergic rhinitis, cause unspecified- Primary documented in this encounter Care Teams Zinc Skimmer Relationship Specialty Start Date End Date Gildardo Roberts MD [address] [place] [address] PCP - General Family Practice 05/18/20 documented as of this encounter
--- OUTSIDE RECORDS SUMMARY | 2025-05-09 20:29 | XMS_ITS | Encounter Summary ---
Author Organization [facility] Address [address] [place] [address] Care Team Providers Care Cheese Supervisor Name Role Phone Gildardo Roberts MD Primary Care Provider [phone] Encounter Details Date Type Department Care Team (Latest Contact Info) Description 08/30/1998 Outpatient Historical [facility] Family Medicine [address] [address] Liborio Amin MD NO ADDRESS ON FILE Nonallopathic lesion of sacral region, not elsewhere classified (Primary Dx); Nonallopathic lesion of lumbar region, not elsewhere classified Social History Tobacco Use Types Packs/Day Years Used Date Smoking Tobacco: Never Assessed Sex and Gender Information Value Date Recorded Sex Assigned at Not on file Legal 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 HISTORY CARD CLERK Gender Identity Not on file Sexual Orientation Not on file documented as of this encounter Plan of Treatment Not on file documented as of this encounter Visit Diagnoses Diagnosis Nonallopathic lesion of sacral region, not elsewhere classified- Primary Nonallopathic lesion of lumbar region, not elsewhere classified documented in this encounter Care Teams Cheese Supervisor Relationship Specialty Start Date End Date Gildardo Roberts MD [address] [place] [address] PCP - General Family Practice 05/18/20 documented as of this encounter
--- OUTSIDE RECORDS SUMMARY | 2025-05-09 20:29 | XMS_ITS | Encounter Summary ---
Author Organization [facility] Address [address] [place] [address] Care Team Providers Care Director Of Direct Marketing Name Role Phone Gildardo Roberts MD Primary Care Provider [phone] Encounter Details Date Type Department Care Team (Late st Contact Info) Description 06/27/2007 Outpatient Historical [facility] Family Medicine [place]asmine [address] [address] Gildardo Roberts MD [address] [place] [phone] Social History Tobacco Use Types Packs/Day Years Used Date Smoking Tobacco: Never Assessed Sex and Gender Information Value Date Recorded Sex Assigned at Not on file Legal 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 CARTRIDGE MAKER Gender Identity Not on file Sexual Orientation Not on file documented as of this encounter Plan of Treatment Not on file documented as of this encounter Visit Diagnoses Not on filedocumented in this encounter Care Teams Director Of Direct Marketing Relationship Specialty Start Date End Date Gildardo Roberts MD [address] [place] [address] PCP - General Family Practice 05/18/20 documented as of this encounter
--- OUTSIDE RECORDS SUMMARY | 2025-05-09 20:29 | XMS_ITS | Encounter Summary ---
Author Organization [facility] Address [address] [facility] Attn: [place] [address] Care Team Providers Care Railroad Signal Technician Name Role Phone iGldardo Roberts MD Primary Care Provider [phone] Encounter Details Date Type Department Care Team (Late st Contact Info) Description 10/23/2000 Outpatient Historical Liborio Amin MD NO ADDRESS ON FILE Social History Tobacco Use Types Packs/Day Years Used Date Smoking Tobacco: Never Assessed Sex and Gender Information Value Date Recorded Sex Assigned at Not on file Legal 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 INTERLINE CLERK Gender Identity Not on file Sexual Orientation Not on file documented as of this encounter Plan of Treatment Not on file documented as of this encounter Visit Diagnoses Not on filedocumented in this encounter Care Teams Railroad Signal Technician Relationship Specialty Start Date End Date Gildardo Roberts MD [address] [place] [address] PCP - General Family Practice 05/18/20 documented as of this encounter
--- OUTSIDE RECORDS SUMMARY | 2025-05-09 20:29 | XMS_ITS | Encounter Summary ---
Author Organization [facility] Address [address] [place] [address] Care Team Providers Care Operations Support Analyst Name Role Phone Gildardo Roberts MD Primary Care Provider [phone] Encounter Details Date Type Department Care Team (Latest Contact Info) Description 06/29/2000 Outpatient Historical [facility] NEUROLOGY Charlie Burciaga R, DO [address] [place] [address] Other convulsions (Primary Dx) Social History Tobacco Use Types Packs/Day Years Used Date Smoking Tobacco: Never Assessed Sex and Gender Information Value Date Recorded Sex Assigned at Not on file Legal 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 SUPERINTENDENT MAINTENANCE Gender Identity Not on file Sexual Orientation Not on file documented as of this encounter Plan of Treatment Not on file documented as of this encounter Visit Diagnoses Diagnosis Other convulsions- Primary documented in this encounter Care Teams Operations Support Analyst Relationship Specialty Start Date End Date Gildardo Roberts MD [address] [place] [address] PCP - General Family Practice 05/18/20 documented as of this encounter
--- OUTSIDE RECORDS SUMMARY | 2025-05-09 20:29 | XMS_ITS | Encounter Summary ---
Author Organization [facility] Address [address] [place] [address] Care Team Providers Care Market News Reporter Name Role Phone Gildardo Roberts MD Primary Care Provider [phone] Encounter Details Date Type Department Care Team (Late st Contact Info) Description 10/29/2007 Emergency [facility] Emergency Department [address] [place] [address] Ed, Physician NO ADDRESS ON FILE Андрей Faust MD NO ADDRESS ON FILE Social History Tobacco Use Types Packs/Day Years Used Date Smoking Tobacco: Never Assessed Sex and Gender Information Value Date Recorded Sex Assigned at Not on file Legal 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 MANAGER OB Gender Identity Not on file Sexual Orientation Not on file documented as of this encounter Plan of Treatment Not on file documented as of this encounter Visit Diagnoses Not on filedocumented in this encounter Care Teams Market News Reporter Relationship Specialty Start Date End Date Gildardo Roberts MD [address] [place] [address] PCP - General Family Practice 05/18/20 documented as of this encounter
--- OUTSIDE RECORDS SUMMARY | 2025-05-09 20:29 | XMS_ITS | Encounter Summary ---
Author Organization [facility] Address [address] [place] [address] Care Team Providers Care Head Of Research & Insights Name Role Phone Gildardo Roberts MD Primary Care Provider [phone] Encounter Details Date Type Department Care Team (Latest Contact Info) Description 12/22/1999 Outpatient Historical [facility] Family Medicine [address] [phone] Liborio Amin MD NO ADDRESS ON FILE Encounter for long-term (current) use of other medications (Primary Dx) Social History Tobacco Use Types Packs/Day Years Used Date Smoking Tobacco: Never Assessed Sex and Gender Information Value Date Recorded Sex Assigned at Not on file 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
--- OUTSIDE RECORDS SUMMARY | 2025-05-09 20:29 | XMS_ITS | Encounter Summary ---
Author Organization [facility] Address [address] [place] [address] Care Team Providers Care Endband Cutter Hand Name Role Phone Gildardo Roberts MD Primary Care Provider [phone] Encounter Details Date Type Department Care Team (Late st Contact Info) Description 05/29/2007 Outpatient [facility] [address] [place] [address] Misael Ghosh MD [address] [phone] Social History Tobacco Use Types Packs/Day Years Used Date Smoking Tobacco: Never Assessed Sex and Gender Information Value Date Recorded Sex Assigned at Not on file 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
--- OUTSIDE RECORDS SUMMARY | 2025-05-09 20:29 | XMS_ITS | Encounter Summary ---
Author Organization [facility] Address [address] [place] [address] Care Team Providers Care Dry Press Operator Name Role Phone Gildardo Roberts MD Primary Care Provider Encounter Details Date Type Department Care Team (Latest Contact Info) Description 05/30/2000 Outpatient Historical [facility] NEUROLOGY Charlie Burciaga R, DO [address] [place] [address] Other convulsions (Primary Dx) Social History Tobacco Use Types Packs/Day Years Used Date Smoking Tobacco: Never Assessed Sex and Gender Information Value Date Recorded Sex Assigned at Not on file Legal 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
--- OUTSIDE RECORDS SUMMARY | 2025-05-09 20:29 | XMS_ITS | Encounter Summary ---
Author Organization [facility] Address [address] [place] [address] Care Team Providers Care Collection Specialist Name Role Phone Gildardo Roberts MD Primary Care Provider [phone] Encounter Details Date Type Department Care Team (Late st Contact Info) Description 09/07/[address] 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
--- OUTSIDE RECORDS SUMMARY | 2025-05-09 20:29 | XMS_ITS | Encounter Summary ---
Author Organization [facility] Address [address] [place] [address] Care Team Providers Care Armhole Sewer Name Role Phone Gildardo Roberts MD Primary Care Provider Encounter Details Date Type Department Care Team (Latest Contact Info) Description 07/10/2006 Outpatient Historical [facility] Family Medicine Yasmine [address] [address] Janee Wray, BULK SEALER OPERATOR NO ADDRESS ON FILE Common Migraine without Mention of Intractable Migraine (Primary Dx); Nausea Alone Social History Tobacco Use Types Packs/Day Years Used Date Smoking Tobacco: Never Assessed Sex and Gender Information Value Date Recorded Sex Assigned at Not on file 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
--- OUTSIDE RECORDS SUMMARY | 2025-05-09 20:29 | XMS_ITS | Encounter Summary ---
Author Organization [facility] Address [address] [place] [address] Care Team Providers Care Phlebotomist Lab Assistant Name Role Phone Gildardo Roberts MD Primary Care Provider [phone] Encounter Details Date Type Department Care Team (Latest Contact Info) Description 08/22/2006 Outpatient Historical 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
--- OUTSIDE RECORDS SUMMARY | 2025-05-09 20:29 | XMS_ITS | Encounter Summary ---
Author Organization [facility] Address [address] [place] [address] Care Team Providers Care Scale Shooter Name Role Phone Gildardo Roberts MD Primary Care Provider Encounter Details Date Type Department Care Team (Latest Contact Info) Description 01/16/2000 Outpatient Historical [facility] Family Medicine [address] [phone] Liborio Amin MD NO ADDRESS ON FILE Encounter for long-term (current) use of other medications (Primary Dx) Social History Tobacco Use Types Packs/Day Years Used Date Smoking Tobacco: Never Assessed Sex and Gender Information Value Date Recorded Sex Assigned at Not on file 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
--- OUTSIDE RECORDS SUMMARY | 2025-05-09 20:29 | XMS_ITS | Encounter Summary ---
Author Organization [facility] Address [address] [place] [address] Care Team Providers Care Dehydrator Operator Name Role Phone Gildardo Roberts MD Primary Care Provider [phone] Encounter Details Date Type Department Care Team (Latest Contact Info) Description 04/12/2006 Outpatient Historical [facility] Family Medicine Yasmine [address] [address] Janee Wray, CRANE RIGGER NO ADDRESS ON FILE Nausea with Vomiting (Primary Dx); Viral Infection Social History Tobacco Use Types Packs/Day Years Used Date Smoking Tobacco: Never Assessed Sex and Gender Information Value Date Recorded Sex Assigned at Not on file Legal 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
--- OUTSIDE RECORDS SUMMARY | 2025-05-09 20:29 | XMS_ITS | Encounter Summary ---
Author Organization [facility] Address [address] [place] [address] Care Team Providers Care Fire Equipment Inspector Helper Name Role Phone Gildardo Roberts MD Primary Care Provider [phone] Encounter Details Date Type Department Care Team (Latest Contact Info) Description 08/21/2000 Outpatient Historical [facility] Family Medicine Yasmine [address] [address] Liborio Amin MD NO ADDRESS ON FILE Unspecified essential hypertension (Primary Dx); Other convulsions Social History Tobacco Use Types Packs/Day Years Used Date Smoking Tobacco: Never Assessed Sex and Gender Information Value Date Recorded Sex Assigned at Not on file Legal 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 INFORMAL WAITER/WAITRESS Gender Identity Not on file Sexual Orientation Not on file documented as of this encounter Plan of Treatment Not on file documented as of this encounter Visit Diagnoses Diagnosis Unspecified essential hypertension- Primary Other convulsions documented in this encounter Care Teams Fire Equipment Inspector Helper Relationship Specialty Start Date End Date Gildardo Roberts MD [address] [place] [address] PCP - General Family Practice 05/18/20 documented as of this encounter
--- OUTSIDE RECORDS SUMMARY | 2025-05-09 20:29 | XMS_ITS | Encounter Summary ---
Author Organization [facility] Address [address] [place] [address] Care Team Providers Care Pipe Fitter Welding Name Role Phone Gildardo Roberts MD Primary Care Provider [phone] Encounter Details Date Type Department Care Team (Latest Contact Info) Description 05/01/2007 Outpatient Historical [facility] Imaging Services-[facility] [place] Marleny [address] [place] [address] Janee Wray FNP NO ADDRESS ON FILE Stricture or Kinking of Ureter (Primary Dx) Social History Tobacco Use Types Packs/Day Years Used Date Smoking Tobacco: Never Assessed Sex and Gender Information Value Date Recorded Sex Assigned at Not on file Legal 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 Gender Identity Not on file Sexual Orientation Not on file documented as of this encounter Plan of Treatment Not on file documented as of this encounter Procedures Procedure Name Priority Date/Time Associated Diagnosis Comments POC CREATININE Routine 05/01/2007 1:[address] ABDOMEN PELVIS W CONTRAST Routine 05/01/2007 11:36 AM CDT documented in this encounter Results * POC CREATININE (05/01/2007 1:12 PM CDT) CREATININE POC 0.9 0.7 - 1.5 mg/dL INTERFACE SYSTEM 05/01/2007 1:12 PM CDT us Janee MEDEL POINT OF CARE TESTING Edited INTERFACE SYSTEM Refer to clinic/hospital department * CT ABDOMEN PELVIS W CONTRAST (05/01/2007 11:36 AM CDT) Anatomical Region Laterality Modality Abdomen Other 05/01/2007 11:3 6 AM CDT Narrative 05/01/2007 11:36 AM CDT Exam: CT Abdomen, Pelvis, w/contrastDate/Time of Exam: May 01, 2007 1:19:42 PMHistory: right flank pain. Technique: CT of the abdomen and pelvis was performed after the administration of oral andintravenous contrast. Contrast administered was 100 mL Optiray 240 and oral contrast. Findings: Liver, gallbladder, spleen, pancreas and adrenals are unremarkable. There are bilateralextrarenal pelves. There is mild dilatation of the right collecting system to the level of theureteropelvic junction. There is asymmetric right renal cortical atrophy. At the UPJ there arecrossing accessory renal artery and vein. Unremarkable bladder, seminal vesicles, and prostateappear unremarkable. Small bilateral fat containing inguinal hernias. Moderate amount of colonicstool. No significant basilar pulmonary pathology. No significant skeletal pathology. 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 Mild asymmetric right renal cortical atrophy. Moderate amount ofcolonic stool. Bilateral inguinal hernias. - Dictated By: Ha Gomez M.D. Electronically Signed By: Ha Gomez M.D. Date Signed: 05/01/07 [facility] Procedure Note 05/30/2009 Exam: CT Abdomen, Pelvis, w/contrastDate/Time of Exam: May 01, 2007 1:19:42 PMHistory: right flank pain. Technique: CT of the abdomen and pelvis was performed after the administration oforal andintravenous contrast. Contrast administered was 100 mL Optiray 240 and oral contrast. Findings: Liver, gallbladder, spleen, pancreas and adrenals are unremarkable. Thereare bilateralextrarenal pelves. There is mild dilatation of the right collecting system to the level oftheureteropelvic junction. There is asymmetric right renal cortical atrophy. At the UPJ there arecrossingaccessory renal artery and vein. Unremarkable bladder, seminal vesicles, and prostateappearunremarkable. Small bilateral fat containing inguinal hernias. Moderate amount of colonicstool. Nosignificant basilar pulmonary pathology. No significant skeletal pathology. 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 Mild asymmetric right renal cortical atrophy. Moderateamount ofcolonic stool. Bilateral inguinal hernias. - Dictated By: Ha Gomez M.D. Electronically Signed By: Ha Gomez M.D. Date Signed: 05/01/07 [facility] Janee Wray [facility] CT ORDERABLES Final Result documented in this encounter Visit Diagnoses Diagnosis Stricture or kinking of ureter- Primary documented in this encounter Care Teams Pipe Fitter Welding Relationship Specialty Start Date End Date Gildardo Roberts MD [address] [address] PCP - General Family Practice 05/18/20 documented as of this encounter
--- OUTSIDE RECORDS SUMMARY | 2025-05-09 20:29 | XMS_ITS | Encounter Summary ---
Author Organization [facility] Address [address] [place] [address] Care Team Providers Care Combatant Diver Qualified Name Role Phone Gildardo Roberts MD Primary Care Provider [phone] Encounter Details Date Type Department Care Team (Late st Contact Info) Description 05/05/2008 Outpatient Historical [facility] Imaging Services-[facility] Maik Marleny [address] [place] [address] Sunny Islas MD NO ADDRESS ON FILE Calculus of Kidney Social History Tobacco Use Types Packs/Day Years Used Date Smoking Tobacco: Never Assessed Sex and Gender Information Value Date Recorded Sex Assigned at Not on file Legal 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 The prior exam is May 01, 2007. Punctate calculi are noted within the parenchyma of the right kidney. It appears there is a component of nephrocalcinosis or medullary sponge kidney with streaky linear calcifications in the medullary portion of the right kidney. Additional tiny 1 to 2 mm well-defined calculi are noted in the parenchyma. Right-sided extrarenal pelvis is identified and unchanged. No nephrolithiasis of the left kidney is identified. There is no left hydronephrosis or caliectasis. No calculi are identified in the ureters or bladder. The bladder is smooth in contour. Bilateral small fat-filled inguinal hernias are noted. The left is slightly larger. There is no adenopathy. No focal bladder wall thickening or mass is identified. Prominent haustral folds and a few diverticula are noted in the sigmoid colon but no focal inflammatory changes are identified. The visualized liver and spleen are homogeneous. The lung bases are clear. The abdominal aorta is normal in size. Adrenal glands, gallbladder and pancreas are unremarkable. A lipoma of the right external oblique muscle image 35 is unchanged. Mild degenerative changes are noted in the spine and pelvis. Impression: 1. Right nephrolithiasis. No obstructing calculi. Right dilated renal pelvis is unchanged and suggest chronic UPJ narrowing or extrarenal pelvis. - Dictated By: Stacy Whitehead M.D. Electronically Signed By: Stacy Whitehead M.D. Date Signed: 05/06/08 Procedure Note Stacy Whitehead - 05/06/2008 CT of the abdomen and pelvis was performed without contrast using therenal colic protocol. The prior exam is May 01, 2007. Punctate calculi are noted within the parenchyma of the right kidney. Itappears there is a component of nephrocalcinosis or medullary sponge kidney with streaky linearcalcifications in the medullary portion of the right kidney. Additional tiny 1 to 2 mm well-defined calculi arenoted in the parenchyma. Right-sided extrarenal pelvis is identified and unchanged. Nonephrolithiasis of the left kidney is identified. There is no left hydronephrosis or caliectasis. No calculi areidentified in the ureters or bladder. The bladder is smooth in contour. Bilateral small fat-filled inguinal hernias are noted. The left isslightly larger. There is no adenopathy. No focal bladder wall thickening or mass is identified.Prominent haustral folds and a few diverticula are noted in the sigmoid colon but no focal inflammatorychanges are identified. The visualized liver and spleen are homogeneous. The lung bases are clear. Theabdominal aorta is normal in size. Adrenal glands, gallbladder and pancreas are unremarkable. A lipomaof the right external oblique muscle image 35 is unchanged. Mild degenerative changes are noted in thespine and pelvis. Impression: 1. Right nephrolithiasis. No obstructing calculi. Right dilated renalpelvis is unchanged and suggest chronic UPJ narrowing or extrarenal pelvis. - Dictated By: Stacy Whitehead M.D. Electronically Signed By: Stacy Whitehead M.D. Date Signed: 05/06/08 us Sunny Islas MD CT ORDERABLES Final Result documented in this encounter Visit Diagnoses Diagnosis Calculus of kidney documented in this encounter Care Teams Combatant Diver Qualified Relationship Specialty Start Date End Date Gildardo Roberts MD [address] [place] [address] PCP - General Family Practice 05/18/20 documented as of this encounter
--- OUTSIDE RECORDS SUMMARY | 2025-05-09 20:29 | XMS_ITS | Encounter Summary ---
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
--- OUTSIDE RECORDS SUMMARY | 2025-05-09 20:29 | XMS_ITS | Encounter Summary ---
Author Organization [facility] Address [address] [place] [address] Care Team Providers Care Chipper Operator Name Role Phone Gildardo Roberts MD Primary Care Provider [phone] Encounter Details Date Type Department Care Team (Latest Contact Info) Description 04/15/1999 Outpatient Historical [facility] Marleny [address] [place] [address] Williams Ghosh MD NO ADDRESS ON FILE Abdominal pain, unspecified site (Primary Dx) Social History Tobacco Use Types Packs/Day Years Used Date Smoking Tobacco: Never Assessed Sex and Gender Information Value Date Recorded Sex Assigned at Not on file Legal 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
--- OUTSIDE RECORDS SUMMARY | 2025-05-09 20:29 | XMS_ITS | Encounter Summary ---
Author Organization [facility] Address [address] [place] [address] Care Team Providers Care Slubber Frame Changer Name Role Phone Gildardo Roberts MD Primary Care Provider [phone] Encounter Details Date Type Department Care Team (Latest Contact Info) Description 11/08/1998 Outpatient Historical [facility] Family Medicine [address] [address] Liborio Amin MD NO ADDRESS ON FILE Sprain lumbar region (Primary Dx); Sprain of sacrum; Nonallopathic lesion of lumbar region, not elsewhere classified Social History Tobacco Use Types Packs/Day Years Used Date Smoking Tobacco: Never Assessed Sex and Gender Information Value Date Recorded Sex Assigned at Not on file Legal 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
--- OUTSIDE RECORDS SUMMARY | 2025-05-09 20:29 | XMS_ITS | Encounter Summary ---
Author Organization [facility] Address [address] [place] [address] Care Team Providers Care Clinical Transformation Specialist Name Role Phone Gildardo Roberts MD Primary Care Provider [phone] Encounter Details Date Type Department Care Team (Latest Contact Info) Description 04/19/1998 Outpatient Historical [facility] Misael Bautista MD [address] [place] [phone] Closed fracture of shaft of radius (alone) (Primary Dx); Striking against or struck accidentally by objects or persons in sports without subsequent fall Social History Tobacco Use Types Packs/Day Years Used Date Smoking Tobacco: Never Assessed Sex and Gender Information Value Date Recorded Sex Assigned at Not on file Legal 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
--- OUTSIDE RECORDS SUMMARY | 2025-05-09 20:29 | XMS_ITS | Encounter Summary ---
Author Organization [facility] Address [address] [place] [address] Care Team Providers Care Power And Recovery Superintendent Name Role Phone Gildardo Roberts MD Primary Care Provider [phone] Encounter Details Date Type Department Care Team (Latest Contact Info) Description 05/15/2000 Outpatient Historical [facility] NEUROLOGY Charlie Burciaga R, DO [address] [place] [address] Other convulsions (Primary Dx) Social History Tobacco Use Types Packs/Day Years Used Date Smoking Tobacco: Never Assessed Sex and Gender Information Value Date Recorded Sex Assigned at Not on file Legal 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
--- OUTSIDE RECORDS SUMMARY | 2025-05-09 20:29 | XMS_ITS | Encounter Summary ---
Author Organization [facility] Address [address] [place] [address] Care Team Providers Care Electrician Supervisor Substation Name Role Phone Gildardo Roberts MD Primary Care Provider [phone] Encounter Details Date Type Department Care Team (Latest Contact Info) Description 11/04/1998 Outpatient Historical [facility] Family Medicine Yasmine [address] [address] Liborio Amin MD NO ADDRESS ON FILE Sprain lumbosacral (Primary Dx); Unspecified essential hypertension Social History Tobacco Use Types Packs/Day Years Used Date Smoking Tobacco: Never Assessed Sex and Gender Information Value Date Recorded Sex Assigned at Not on file Legal 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
--- OUTSIDE RECORDS SUMMARY | 2025-05-09 20:29 | XMS_ITS | Encounter Summary ---
Author Organization [facility] Address [address] [place] [address] Care Team Providers Care Blow Down Helper Name Role Phone Gildardo Roberts MD Primary Care Provider [phone] Encounter Details Date Type Department Care Team (Latest Contact Info) Description 05/07/2006 Outpatient Historical [facility] Family Medicine Yasmine [address] [address] Janee Wray, DIRECTOR OF FIELD SERVICE NO ADDRESS ON FILE Headache (Primary Dx); Nausea with Vomiting Social History Tobacco Use Types Packs/Day Years Used Date Smoking Tobacco: Never Assessed Sex and Gender Information Value Date Recorded Sex Assigned at Not on file Legal 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
--- OUTSIDE RECORDS SUMMARY | 2025-05-09 20:29 | XMS_ITS | Encounter Summary ---
Author Organization [facility] Address [address] [place] [address] Care Team Providers Care Chief Crna Name Role Phone Gildardo Roberts MD Primary Care Provider [phone] Encounter Details Date Type Department Care Team (Latest Contact Info) Description 09/06/2001 Outpatient Historical [facility] Family Medicine [address] [address] Liborio Amin MD NO ADDRESS ON FILE CONVULSIONS, OTHER (CMS/HCC) (Primary Dx); ADV EFFECT MED/BIOL SUB NOS Social History Tobacco Use Types Packs/Day Years Used Date Smoking Tobacco: Never Assessed Sex and Gender Information Value Date Recorded Sex Assigned at Not on file 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
--- OUTSIDE RECORDS SUMMARY | 2025-05-09 20:29 | XMS_ITS | Encounter Summary ---
Author Organization [facility] Address [address] [place] [address] Care Team Providers Care Fire Apparatus Engineer Name Role Phone Gildardo Roberts MD Primary Care Provider [phone] Encounter Details Date Type Department Care Team (Latest Contact Info) Description 02/13/2002 Outpatient Historical [facility] Family Medicine Yasmine [address] [address] Liborio Amin MD NO ADDRESS ON FILE AFTERCARE WARP TYING MACHINE TENDER USE MEDICATN (Primary Dx); HYPERLIPIDEMIA NEC/NOS Social History Tobacco Use Types Packs/Day Years Used Date Smoking Tobacco: Never Assessed Sex and Gender Information Value Date Recorded Sex Assigned at Not on file Legal 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
--- OUTSIDE RECORDS SUMMARY | 2025-05-09 20:29 | XMS_ITS | Encounter Summary ---
Author Organization [facility] Address [address] [place] [address] Care Team Providers Care Tool Honing Machine Set Up Operator Name Role Phone Gildardo Roberts MD Primary Care Provider [phone] Encounter Details Date Type Department Care Team (Latest Contact Info) Description 10/31/[address] 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
--- OUTSIDE RECORDS SUMMARY | 2025-05-09 20:29 | XMS_ITS | Encounter Summary ---
Author Organization [facility] Address [address] [place] [address] Care Team Providers Care Biofuels Technology Manager Name Role Phone Gildardo Roberts MD Primary Care Provider [phone] Encounter Details Date Type Department Care Team (Latest Contact Info) Description 10/03/1999 Outpatient Historical [facility] Family Medicine [address] [phone] Liborio Amin MD NO ADDRESS ON FILE Unspecified essential hypertension (Primary Dx); Other convulsions Social History Tobacco Use Types Packs/Day Years Used Date Smoking Tobacco: Never Assessed Sex and Gender Information Value Date Recorded Sex Assigned at Not on file Legal 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
--- OUTSIDE RECORDS SUMMARY | 2025-05-09 20:29 | XMS_ITS | Encounter Summary ---
Author Organization [facility] Address [address] [place] [address] Care Team Providers Care Strategic Alliances Manager Name Role Phone Gildardo Roberts MD Primary Care Provider [phone] Encounter Details Date Type Department Care Team (Latest Contact Info) Description 10/18/1999 Outpatient Historical [facility] Family Medicine Yasmine [address] [phone] Liborio Amin MD NO ADDRESS ON FILE Unspecified essential hypertension (Primary Dx); Other convulsions Social History Tobacco Use Types Packs/Day Years Used Date Smoking Tobacco: Never Assessed Sex and Gender Information Value Date Recorded Sex Assigned at Not on file Legal 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 MANAGEMENT DEVELOPMENT SPECIALIST Gender Identity Not on file Sexual Orientation Not on file documented as of this encounter Plan of Treatment Not on file documented as of this encounter Visit Diagnoses Diagnosis Unspecified essential hypertension- Primary Other convulsions documented in this encounter Care Teams Strategic Alliances Manager Relationship Specialty Start Date End Date Gildardo Roberts MD [address] [place] [address] PCP - General Family Practice 05/18/20 documented as of this encounter
--- OUTSIDE RECORDS SUMMARY | 2025-05-09 20:29 | XMS_ITS | Encounter Summary ---
Author Organization [facility] Address [address] [place] [address] Care Team Providers Care Web Applications Architect Name Role Phone Gildardo Roberts MD Primary Care Provider Encounter Details Date Type Department Care Team (Latest Contact Info) Description 06/07/1998 Outpatient Historical [facility] Misael Bautista MD [address] [place] [phone] Closed fracture of shaft of radius (alone) (Primary Dx); Follow-up examination following surgery Social History Tobacco Use Types Packs/Day Years Used Date Smoking Tobacco: Never Assessed Sex and Gender Information Value Date Recorded Sex Assigned at Not on file Legal 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
--- OUTSIDE RECORDS SUMMARY | 2025-05-09 20:29 | XMS_ITS | Encounter Summary ---
Author Organization [facility] Address [address] [place] [address] Care Team Providers Care Senior Outside Sales Representative Name Role Phone Gildardo Roberts MD Primary Care Provider [phone] Encounter Details Date Type Department Care Team (Latest Contact Info) Description 01/30/2000 Outpatient Historical [facility] Family Medicine [address] [phone] Liborio Amin MD NO ADDRESS ON FILE Encounter for long-term (current) use of other medications (Primary Dx) Social History Tobacco Use Types Packs/Day Years Used Date Smoking Tobacco: Never Assessed Sex and Gender Information Value Date Recorded Sex Assigned at Not on file Legal 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
--- OUTSIDE RECORDS SUMMARY | 2025-05-09 20:29 | XMS_ITS | Encounter Summary ---
Author Organization [facility] Address [address] [place] [address] Care Team Providers Care Bridge/Structure Inspection Team Leader Name Role Phone Gildardo Roberts MD Primary Care Provider [phone] Encounter Details Date Type Department Care Team (Late st Contact Info) Description 06/30/2008 Outpatient [facility] [address] [facility] [address] [place] [address] [place] [address] [place] [address] [address] [place] [address] Social History Tobacco Use Types Packs/Day Years Used Date Smoking Tobacco: Never Assessed Sex and Gender Information Value Date Recorded Sex Assigned at Not on file Legal 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 Gender Identity Not on file Sexual Orientation Not on file documented as of this encounter Plan of Treatment Not on file documented as of this encounter Procedures Procedure Name Priority Date/Time Associated Diagnosis Comments PATHOLOGY Routine 07/03/2008 1:31 PM 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 documented in this encounter Results * PATHOLOGY (07/03/2008 1:31 PM 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) PATHOLOGY/CYT OLOGY REPORT [facility] Anatomic Pathology Dept [address] [facility] [address] Patient: MARIZA LIANG Accn No: [id number] Collected: 07/03/2008 1:31:00 PM SURGICAL PATHOLOGY FINAL REPORT Diagnosis A. Soft tissue, right forehead, excision - lipoma. Matias Eagle M.D. (Electronically signed by) Verified: 07/06/08 DD /CEP Clinical Information Lipoma. Specimen Source ALipoma, RIGHT FOREHEAD Microscopic Description Microscopic examination was performed. Gross Description Part A. Submitted in a container of formalin labelled [place] - #1 right forehead lipoma is a pale yellowish-valdez fatty soft tissue fragment measuring 1.8 x 1.7 x 0.6 cm. The surgical margin is marked with blue ink. Sectioning reveals a pale yellowish-valdez uniform cut surface. Teacher Vocal sections are submitted in A1. DLS/WLS INTERFACE SYSTEM 07/03/2008 1:31 PM 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 Leonardo Gonzalez MD PATHOLOGY/CYTOLOGY DINH BLAKE Final Result INTERFACE SYSTEM Refer to clinic/hospital department documented in this encounter Visit Diagnoses Not on filedocumented in this encounter Care Teams Bridge/Structure Inspection Team Leader Relationship Specialty Start Date End Date Gildardo Roberts MD [address] [place] [address] PCP - General Family Practice 05/18/20 documented as of this encounter
--- OUTSIDE RECORDS SUMMARY | 2025-05-09 20:29 | XMS_ITS | Encounter Summary ---
Author Organization [facility] Address [address] [place] [address] Care Team Providers Care Brake Mechanic Name Role Phone Gildardo Roberts MD Primary Care Provider [phone] Encounter Details Date Type Department Care Team (Latest Contact Info) Description 03/18/2008 Outpatient Historical [facility] [place] [address] [place] [address] [place] [address] Vince Rachel MD [address] 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 Gender Identity Not on file Sexual Orientation Not on file documented as of this encounter Plan of Treatment Not on file documented as of this encounter Visit Diagnoses Diagnosis Stricture and stenosis of esophagus Unspecified essential hypertension Unspecified epilepsy without mention of intractable epilepsy (CMS/HCC) Unspecified epilepsy without mention of intractable epilepsy documented in this encounter Care Teams Brake Mechanic Relationship Specialty Start Date End Date Gildardo Roberts MD [address] [place] [address] PCP - General Family Practice 05/18/20 documented as of this encounter
--- OUTSIDE RECORDS SUMMARY | 2025-05-09 20:29 | XMS_ITS | Encounter Summary ---
Author Organization [facility] Address [address] [place] [address] Care Team Providers Care Trade Union Secretary Name Role Phone Gildardo Roberts MD Primary Care Provider [phone] Encounter Details Date Type Department Care Team (Latest Contact Info) Description 08/29/1999 Outpatient Historical [facility] Family Medicine [address] [address] Liborio Amin MD NO ADDRESS ON FILE Contact dermatitis and other eczema, due to unspecified cause (Primary Dx); Abdominal pain, unspecified site Social History Tobacco Use Types Packs/Day Years Used Date Smoking Tobacco: Never Assessed Sex and Gender Information Value Date Recorded Sex Assigned at Not on file Legal 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
--- OUTSIDE RECORDS SUMMARY | 2025-05-09 20:29 | XMS_ITS | Encounter Summary ---
Author Organization [facility] Address [address] [place] [address] Care Team Providers Care Customs Broker Name Role Phone Gildardo Roberts MD Primary Care Provider [phone] Encounter Details Date Type Department Care Team (Latest Contact Info) Description 11/01/1999 Outpatient Historical [facility] NEUROLOGY Charlie Burciaga R, DO [address] [place] [address] Other convulsions (Primary Dx) Social History Tobacco Use Types Packs/Day Years Used Date Smoking Tobacco: Never Assessed Sex and Gender Information Value Date Recorded Sex Assigned at Not on file Legal 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 NEWS ASSISTANT Gender Identity Not on file Sexual Orientation Not on file documented as of this encounter Plan of Treatment Not on file documented as of this encounter Visit Diagnoses Diagnosis Other convulsions- Primary documented in this encounter Care Teams Customs Broker Relationship Specialty Start Date End Date Gildardo Roberts MD [address] [place] [address] PCP - General Family Practice 05/18/20 documented as of this encounter
--- OUTSIDE RECORDS SUMMARY | 2025-05-09 20:29 | XMS_ITS | Encounter Summary ---
Author Organization [facility] Address [address] [place] [address] Care Team Providers Care Proposal Lead Writer Name Role Phone Gildardo Roberts MD Primary Care Provider [phone] Encounter Details Date Type Department Care Team (Latest Contact Info) Description 01/06/2000 Outpatient Historical [facility] Family Medicine [address] [id number] Liborio Amin MD NO ADDRESS ON FILE Allergic rhinitis, cause unspecified (Primary Dx) Social History Tobacco Use Types Packs/Day Years Used Date Smoking Tobacco: Never Assessed Sex and Gender Information Value Date Recorded Sex Assigned at Not on file Legal 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 PURCHASING ASSOCIATE Gender Identity Not on file Sexual Orientation Not on file documented as of this encounter Plan of Treatment Not on file documented as of this encounter Visit Diagnoses Diagnosis Allergic rhinitis, cause unspecified- Primary documented in this encounter Care Teams Proposal Lead Writer Relationship Specialty Start Date End Date Gildardo Roberts MD [address] [place] [address] PCP - General Family Practice 05/18/20 documented as of this encounter
--- OUTSIDE RECORDS SUMMARY | 2025-05-09 20:29 | XMS_ITS | Encounter Summary ---
Author Organization [facility] Address [address] [place] [address] Care Team Providers Care Wire Bender Hand Name Role Phone Gildardo Roberts MD Primary Care Provider Encounter Details Date Type Department Care Team (Latest Contact Info) Description 09/26/2001 Outpatient Historical [facility] Family Medicine [address] [address] Liborio Amin MD NO ADDRESS ON FILE CONVULSIONS, OTHER (CMS/HCC) (Primary Dx) Social History Tobacco Use Types Packs/Day Years Used Date Smoking Tobacco: Never Assessed Sex and Gender Information Value Date Recorded Sex Assigned at Not on file Legal 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
--- OUTSIDE RECORDS SUMMARY | 2025-05-09 20:29 | XMS_ITS | Encounter Summary ---
Author Organization [facility] Address [address] [place] [address] Care Team Providers Care Travograph Operator Name Role Phone Gildardo Roberts MD Primary Care Provider [phone] Encounter Details Date Type Department Care Team (Latest Contact Info) Description 01/31/2000 Outpatient Historical [facility] NEUROLOGY Charlie Burciaga R, DO [address] [place] [address] Other convulsions (Primary Dx) Social History Tobacco Use Types Packs/Day Years Used Date Smoking Tobacco: Never Assessed Sex and Gender Information Value Date Recorded Sex Assigned at Not on file Legal 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
[2025-05-09 20:43] VITALS: BMI 34.9
--- NOTE | 2025-05-09 20:43 | CTR_ITS ---
PROCEDURE INFORMATION: Exam: CT Head Without Contrast Exam date and time: 05/09/2025 9:02 PM Age: 54 years old Clinical indication: Altered mental status/memory loss; EMS arrival for hallucinations. History of CVA. ; Additional info: Altered mental status, hallucinations, history of stroke TECHNIQUE: Imaging protocol: Computed tomography of the head without contrast. Radiation optimization: All CT scans at this facility use at least one of these dose optimization techniques: automated exposure control; mA and/or kV adjustment per patient size (includes targeted exams where dose is matched to clinical indication); or iterative reconstruction. COMPARISON: CR XR soft tissue neck [id number] 01/13/2021 11:51 PM RADIATION DOSE METRICS: Total DLP (mGy-cm): 1102.14 FINDINGS: Brain: No acute intra-axial hemorrhage. No masses. Normal raza-white matter differentiation. No midline shift or mass effect. Old left occipital and right cerebellar hemispheric infarcts. Severe patchy hypodensity in hemispheric white matter bilaterally most likely due to chronic microangiopathy. There are a few old lacunar infarcts in the basal ganglia bilaterally. Cerebral ventricles: No ventriculomegaly. Paranasal sinuses: Visualized sinuses are unremarkable. No fluid levels. Mastoid air cells: Visualized mastoid air cells are well aerated. Bones: Unremarkable. No acute fracture. Soft tissues: Unremarkable. CT/CT head wo con* [id number] IMPRESSION: No acute intracranial abnormality.
--- NOTE | 2025-05-09 20:43 | ECG_ITS ---
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 Measurements Intervals [place] Rate: 92 P: 24 [place]: 224 QRS: 37 QRSD: 107 T: 57 QT: 356 QTc: 441 Interpretive Statements SINUS RHYTHM WITH FIRST DEGREE AV BLOCK INFERIOR MYOCARDIAL INFARCTION , OF INDETERMINATE AGE [40+ ms Q WAVE AND/OR ST/T ABNORMALITY IN II/aVF] POSSIBLE ANTEROLATERAL MYOCARDIAL INFARCTION , OF INDETERMINATE AGE [30 ms Q WAVE IN I/aVL/V3-V6] Compared to ECG 09/25/2016 10:59:15 First degree AV block now present Myocardial infarct finding still present Electronically Signed On 05-10-2025 14:13:06 CHIEF YEOMAN by Sudheer Casas M.D. [email or web address]
[2025-05-09 20:45] VITALS: BP 143/88; PULSE 101; RESP 18; O2SAT 94
[2025-05-09 20:51] LABS: Glucose Urine UA Negative (Normal); Nitrate Urine Negative (Negative); Specific Gravity, Urine 1.021 (1.005-1.030)
[2025-05-09] MEDS: haloperidol inj 5 mg/mL INJ 1 mL IVP (20:55)
[2025-05-09 20:57] LABS: Add Urine Microscopic? YES
[2025-05-09 20:59] VITALS: TEMP 37.2
[2025-05-09 20:59] LABS: PCP Screen Urine Negative (Negative)
--- NOTE | 2025-05-09 21:09 | W.ED.PSYCHS ---
Documented by User: Antelmo Jeronimo DO 05/15/25 18:19 HPI - Psych General: Chief Complaint: Psychiatric Symptoms Stated Complaint: HALLUCINATING Time Seen by Provider: 05/10/25 09:31 History of Present Illness: 54-year-old male presents with acute neurological changes including visual hallucinations, describing 'brown shit all over me' and 'four mouths on my face.' Patient reports these symptoms are new, stating they were not present yesterday. He denies drug use as a potential cause. Patient is notably anxious about his condition. He reports severe headache, describing it as 'killing me.' Patient has a significant history of recent strokes, reporting two strokes within the past two weeks with hospitalization at this facility last week. He reports residual deficits from these strokes including difficulty walking, talking, and visual disturbances. Patient appears to have right-sided facial weakness on examination. Associated symptoms: Reports delusions Related Data Home Medications ?Medication ?Instructions ?Recorded ?Confirmed hydralazine 50 mg tablet 50 mg PO Q8H PRN htn 05/10/25 05/10/25 Previous Rx's ?Medication ?Instructions ?Recorded amlodipine 10 mg tablet 10 mg PO DAILY 30 days #30 tabs 05/14/25 atorvastatin 40 mg tablet 40 mg PO BEDTIME 30 days #30 tabs 05/14/25 clopidogrel 75 mg tablet 75 mg PO DAILY 30 days #30 tabs 05/14/25 haloperidol 2 mg tablet 2 mg PO DAILY 30 days #30 tabs 05/14/25 hydroxyzine pamoate 25 mg capsule 50 mg (2 x 25 mg) PO Q6H PRN 05/14/25 Anxiety 30 days #120 caps levetiracetam 1,000 mg tablet 1,000 mg PO BID 30 days #60 tabs 05/14/25 trazodone 50 mg tablet 50 mg PO BEDTIME PRN Sleep 30 days 05/14/25 #30 tabs Allergies Allergy/AdvReac Type Severity Reaction Status Date / Time No Known Allergies Allergy Verified 05/11/21 09:50 [facility]LY [facility] ED PFSH: Medical History CVA (cerebral vascular accident) Food impaction of esophagus Surgical History H/O esophagogastroduodenoscopy (01/14/21) Social History Smoking and tobacco/nicotine status: never used tobacco/nicotine Physical Exam Const: GENERAL APPEARANCE: cooperative and anxious; not frail appearing ORIENTATION/CONSCIOUSNESS: Yes awake, Yes oriented to person and Yes oriented to place; not oriented to time HENMT: COMMON NORMALS: normocephalic, atraumatic and Normal external nose present HEAD & SCALP: normocephalic and atraumatic FACE & SINUS: normal facial exam and other (R facial droop) NOSE: Normal external nose present Eye: COMMON NORMALS: Equal, round and reactive pupils present and EOMs intact bilaterally PUPIL: Yes Equal, round and reactive pupils present Neck/C-Spine: GENERAL: Yes trachea midline Chest: CHEST: Yes Symmetrical chest wall rise Resp: COMMON NORMALS: normal respiratory effort, No retractions, No use of accessory muscles and clear to auscultation bilaterally AUSCULTATION: clear to auscultation bilaterally Cardio: COMMON NORMALS: regular rate and regular rhythm RATE: regular rate RHYTHM: regular rhythm GI: COMMON NORMALS: Normal to inspection, nondistended, normoactive bowel sounds present Extremity: COMMON NORMALS: no pedal edema Neuro: MAGGI COMA SCALE: document GCS findings Maggi coma scale eye opening: Spontaneous Maggi coma scale verbal response: Confused Mcgregor coma scale motor response: Obey commands Mcgregor coma scale total score: 14 SENSORIUM/ORIENTATION: Yes oriented to person, Yes oriented to place and No oriented to time SENSORY EXAM: Yes extremities (intact) Psych: COMMON NORMALS: speech normal ATTITUDE: Yes paranoid ACTIVITY/MOTOR BEHAVIOR: Yes fidgeting SPEECH: Yes normal speech MOOD & AFFECT: Yes anxious and Yes tearful THOUGHT PROCESS: disorganized THOUGHT CONTENT: No Suicidality present, No Homicidality present and Yes delusions Skin: COMMON NORMALS: no rashes or lesions noted GENERAL SKIN EXAM: no rashes or lesions noted Course Vital Signs: Vital signs: Vital Signs Temperature 98.3 F 05/14/25 14:14 Pulse Rate 72 05/14/25 14:14 Respiratory Rate 16 05/14/25 14:14 Blood Pressure 121/73 05/14/25 14:14 Pulse Oximetry 95 05/14/25 14:14 Oxygen Delivery Me thod Room Air 05/14/25 06:00 Oxygen Flow Rate 2 05/10/25 05:34 [facility] - Psych Medical Decision Making 54-year-old male patient here with acute psychosis symptoms. Does not appear to be substance related. He has no fever. His vitals are stable. His white blood cell count is 11.7. Platelet count 413 bicarbonate 21 other laboratory is not remarkable. Urine drug screen is negative. Alcohol is nondetectable. CT of the head is negative for acute findings, although it does show old stroke sequela. He is given intravenous Haldol, with resolution of his psychosis symptoms. The patient lives alone. He has not had a previous history of psychosis evidently. It does appeared to be related to substance abuse. The patient states he has had strokes in the past, x 2. He is on Plavix, atorvastatin, and amlodipine. Clinically, he would meet criteria for admission and evaluation by psychiatry for new onset psychosis. He is willing to stay. We have a call out to psychiatry. Medically he appears stable. Psychiatrist had accepted the patient, but NPU came to evaluate the patient and have concerns about his ability to perform ADLs. He nearly collapsed on trying to walk, even with help, and is quite weak. I spoke with the hospitalist about a potential medicine admission, but he has been cleared medically by testing done in the ER. Another potential solution is geriatric psychiatry admission for evaluation there, as they may have more help available to deal with the patient's more chronic medical problems and limitations in mobility. We have called out to 2 or more facilities currently for potential transfer. Lab Data 05/09/25 20:53 05/09/25 21:[address] 05/09/25 20:43 IMPRESSION: No acute intracranial abnormality. Chest X-Ray 05/11/25 01:09 IMPRESSION: No acute findings. Laboratory Results WBC 11.66 10^3/uL (3.29-11.43) H 05/09/25 20:53 RBC 5.74 10^6/uL (3.85-5.65) H 05/09/25 20:53 Hgb 16.10 g/dL (11.27-16.99) 05/09/25 20:53 Hct 48.4 % (37-53) 05/09/25 20:53 MCV 84.3 fl (82-101) 05/09/25 20:53 MCH 28.0 pg (27-33) 05/09/25 20:53 MCHC 33.3 g/dL (30-55) 05/09/25 20:53 RDW 13.2 % (12.1-15.1) 05/09/25 20:53 Plt Count 413 10^3/cmm (157-399) H 05/09/25 20:53 MPV 8.8 fL (7.4-10.4) 05/09/25 20:53 Neut % (Auto) 57.5 % 05/09/25 20:53 Lymph % (Auto) 20.9 % 05/09/25 20:53 [place] % (Auto) 10.0 % 05/09/25 20:53 Eos % (Auto) 10.0 % 05/09/25 20:53 Baso % (Auto) 1.3 % 05/09/25 20:53 Neut # (Auto) 6.70 10^3/uL (1.8-7.7) 05/09/25 20:53 Lymph # (Auto) 2.4 10^3/uL (0.8-4.8) 05/09/25 20:53 [place] # (Auto) 1.2 10^3/uL (0.2-0.9) H 05/09/25 20:53 Eos # (Auto) 1.2 10^3/uL (0.0-0.8) H 05/09/25 20:53 Baso # (Auto) 0.2 10^3/uL (0.0-0.1) H 05/09/25 20:53 Nucleated RBC % (auto) 0 % 05/09/25 20:53 Nucleated RBCs # 0.0 /100WBC 05/09/25 20:53 Sodium 137 mmol/L (136-145) 05/09/25 21:26 Potassium 3.9 mmol/L (3.5-5.1) 05/09/25 21:26 Chloride 104 mmol/L (98-107) 05/09/25 21:26 Carbon Dioxide 21 mmol/L (22-29) L 05/09/25 21:26 Anion Gap 15.9 (5-19) 05/09/25 21:26 BUN 16 mg/dL (6-20) 05/09/25 21:26 Creatinine 0.8 mg/dL (0.7-1.2) 05/09/25 21: GFR Calculation 100.4 mL/min (90-130) 05/09/25 21: Glucose 100 mg/dL (65-115) 05/09/25 21: Calculated Osmolality 285 mOsm/kg (285-295) 05/09/25 21: Calcium 9.4 mg/dL (8.5-10.5) 05/09/25 21: Total Bilirubin 0.3 mg/dL (0.15-1.2) 05/09/25 21: AST 20 U/L (0-40) 05/09/25 21: ALT 22 U/L (0-41) 05/09/25 21: Alkaline Phosphatase 49 U/L (40-130) 05/09/25 21: Total Protein 7.3 g/dL (6.6-8.7) 05/09/25 21: Albumin 3.9 g/dL (3.5-5.2) 05/09/25 21: Globulin 3.4 g/dL (1.3-4.6) 05/09/25 21: TSH 3.15 uIU/mL (0.27-4.20) 05/09/25 21: Urine Color Yellow (Yellow) 05/09/25 20: Urine Appearance Clear (CLEAR) 05/09/25 20: Urine pH 5.5 (5-7) 05/09/25 20: Ur Specific [place] 1.021 (1.005-1.030) 05/09/25 20: Urine Protein Negative (Negative) 05/09/25 20: Urine Glucose (UA) Negative (Normal) 05/09/25 20: Urine Ketones Negative (Negative) 05/09/25 20: Urine Blood Negative (Negative) 05/09/25 20: Urine Nitrate Negative (Negative) 05/09/25 20: Urine Bilirubin Negative (Negative) 05/09/25 20: Urine Urobilinogen 1.0 mg/dL (Negative) 05/09/25 20: Ur Leukocyte Esterase Negative (Negative) 05/09/25 20: Urine RBC 0-2 /hpf (0-2) 05/09/25 20: Urine WBC 0-5 /hpf (0-5) 05/09/25 20:30 Ur Squamous Epith Cells 0-5 /hpf (0-5) 05/09/25 20:30 Amorphous Sediment Not Reportable 05/09/25 20:30 Urine Bacteria None seen /hpf (NONE) 05/09/25 20:30 Hyaline Casts 0-4 /lpf H 05/09/25 20:30 Salicylates < 0.3 mg/dL (3-10) L 05/09/25 21:26 Urine Opiates Screen Negative ng/mL (Negative) 05/09/25 20:30 Acetaminophen < 5.0 ug/mL (10-30) L 05/09/25 21:26 Ur Barbiturates Screen Negative ng/mL (Negative) 05/09/25 20:30 Ur Phencyclidine Scrn Negative ng/mL (Negative) 05/09/25 20:30 Ur Amphetamines Screen Negative ng/mL (Negative) 05/09/25 20:30 U Benzodiazepines Scrn Negative ng/mL (Negative) 05/09/25 20:30 Urine Cocaine Screen Negative ng/mL (Negative) 05/09/25 20:30 U Marijuana (THC) Screen Negative ng/mL (Negative) 05/09/25 20:30 Ethyl Alcohol < 10 mg/dL (0-10) 05/09/25 21:26 Discharge Plan Discharge Patient Disposition: Admitted As Inpatient Admit Provider: Darius Howard Clinical Impression: Acute psychosis Condition: Stable Discharge Diet: Cardiac Discharge Activity: Resume usual activity Coding Level of Care Code ED Sales Driver for Chg Fwd Documented by User: Dirk Caro DO 05/11/25 15:38 HPI - Psych General: Chief Complaint: Psychiatric Symptoms Stated Complaint: HALLUCINATING Time Seen by Provider: 05/10/25 09:31 Related Data Home Medications ?Medication ?Instructions ?Recorded ?Confirmed hydralazine 50 mg tablet 50 mg PO Q8H PRN htn 05/10/25 05/10/25 Previous Rx's ?Medication ?Instructions ?Recorded amlodipine 10 mg tablet 10 mg PO DAILY 30 days #30 tabs 05/14/25 atorvastatin 40 mg tablet 40 mg PO BEDTIME 30 days #30 tabs 05/14/25 clopidogrel 75 mg tablet 75 mg PO DAILY 30 days #30 tabs 05/14/25 haloperidol 2 mg tablet 2 mg PO DAILY 30 days #30 tabs 05/14/25 hydroxyzine pamoate 25 mg capsule 50 mg (2 x 25 mg) PO Q6H PRN 05/14/25 Anxiety 30 days #120 caps levetiracetam 1,000 mg tablet 1,000 mg PO BID 30 days #60 tabs 05/14/25 trazodone 50 mg tablet 50 mg PO BEDTIME PRN Sleep 30 days 05/14/25 #30 tabs Allergies Allergy/AdvReac Type Severity Reaction Status Date / Time No Known Allergies Allergy Verified 05/11/21 09:50 [facility] ED PFSH: Medical History CVA (cerebral vascular accident) Food impaction of esophagus Surgical History H/O esophagogastroduodenoscopy (01/14/21) Social History Smoking and tobacco/nicotine status: never used tobacco/nicotine Physical Exam Neuro: MAGGI COMA SCALE: document GCS findings Mcgregor coma scale total score: 14 Course Vital Signs: Vital signs: Vital Signs Temperature 98.3 F 05/14/25 14:14 Pulse Rate 72 05/14/25 14:14 Respiratory Rate 16 05/14/25 14:14 Blood Pressure 121/73 05/14/25 14:14 Pulse Oximetry 95 05/14/25 14:14 Oxygen Delivery Me thod Room Air 05/14/25 06:00 Oxygen Flow Rate 2 05/10/25 05:34 MDM - Psych Medical Decision Making 54-year-old male patient here with acute psychosis symptoms. Does not appear to be substance related. He has no fever. His vitals are stable. His white blood cell count is 11.7. Platelet count 413 bicarbonate 21 other laboratory is not remarkable. Urine drug screen is negative. Alcohol is nondetectable. CT of the head is negative for acute findings, although it does show old stroke sequela. He is given intravenous Haldol, with resolution of his psychosis symptoms. The patient lives alone. He has not had a previous history of psychosis evidently. It does appeared to be related to substance abuse. The patient states he has had strokes in the past, x 2. He is on Plavix, atorvastatin, and amlodipine. Clinically, he would meet criteria for admission and evaluation by psychiatry for new onset psychosis. He is willing to stay. We have a call out to psychiatry. Medically he appears stable. Psychiatrist had accepted the patient, but NPU came to evaluate the patient and have concerns about his ability to perform ADLs. He nearly collapsed on trying to walk, even with help, and is quite weak. I spoke with the hospitalist about a potential medicine admission, but he has been cleared medically by testing done in the ER. Another potential solution is geriatric psychiatry admission for evaluation there, as they may have more help available to deal with the patient's more chronic medical problems and limitations in mobility. We have called out to 2 or more facilities currently for potential transfer. Care assumed at change of shift. Reviewing chart patient was not admitted to our facility for strokes within the last 2 years. Patient reevaluated his NIH score is 0 at this time. Old records from [facility] show he had previous lacunar infarcts but has no new infarcts. 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 There is no significant carotid stenosis. Of the internal or external carotids. Patient has no signs of acute CVA at this time. Patient has been able to ambulate reviewed case Sammy Howard they are excepting to our GLEASON GEAR GENERATOR you they feel at this point they can manage him appropriately. Medical Records I reviewed the patient's medical records. Old records from [facility] reviewed Lab Data I reviewed the patient's lab results. 05/09/25 20:53 05/09/25 21:[address] 05/09/25 20:43 IMPRESSION: No acute intracranial abnormality. Chest X-Ray 05/11/25 01:09 IMPRESSION: No acute findings. Laboratory Results WBC 11.66 10^3/uL (3.29-11.43) H 05/09/25 20:53 RBC 5.74 10^6/uL (3.85-5.65) H 05/09/25 20:53 Hgb 16.10 g/dL (11.27-16.99) 05/09/25 20:53 Hct 48.4 % (37-53) 05/09/25 20:53 MCV 84.3 fl (82-101) 05/09/25 20:53 MCH 28.0 pg (27-33) 05/09/25 20:53 MCHC 33.3 g/dL (30-55) 05/09/25 20:53 RDW 13.2 % (12.1-15.1) 05/09/25 20:53 Plt Count 413 10^3/cmm (157-399) H 05/09/25 20:53 MPV 8.8 fL (7.4-10.4) 05/09/25 20:53 Neut % (Auto) 57.5 % 05/09/25 20:53 Lymph % (Auto) 20.9 % 05/09/25 20:53 [place] % (Auto) 10.0 % 05/09/25 20:53 Eos % (Auto) 10.0 % 05/09/25 20:53 Baso % (Auto) 1.3 % 05/09/25 20:53 Neut # (Auto) 6.70 10^3/uL (1.8-7.7) 05/09/25 20:53 Lymph # (Auto) 2.4 10^3/uL (0.8-4.8) 05/09/25 20:53 [place] # (Auto) 1.2 10^3/uL (0.2-0.9) H 05/09/25 20:53 Eos # (Auto) 1.2 10^3/uL (0.0-0.8) H 05/09/25 20:53 Baso # (Auto) 0.2 10^3/uL (0.0-0.1) H 05/09/25 20:53 Nucleated RBC % (auto) 0 % 05/09/25 20: Nucleated RBCs # 0.0 /100WBC 05/09/25 20:53 Sodium 137 mmol/L (136-145) 05/09/25 21:26 Potassium 3.9 mmol/L (3.5-5.1) 05/09/25 21:26 Chloride 104 mmol/L (98-107) 05/09/25 21: Carbon Dioxide 21 mmol/L (22-29) L 05/09/25 21: Anion Gap 15.9 (5-19) 05/09/25 21: BUN 16 mg/dL (6-20) 05/09/25 21: Creatinine 0.8 mg/dL (0.7-1.2) 05/09/25 21: GFR Calculation 100.4 mL/min (90-130) 05/09/25 21: Glucose 100 mg/dL (65-115) 05/09/25 21: Calculated Osmolality 285 mOsm/kg (285-295) 05/09/25 21: Calcium 9.4 mg/dL (8.5-10.5) 05/09/25 21: Total Bilirubin 0.3 mg/dL (0.15-1.2) 05/09/25 21: AST 20 U/L (0-40) 05/09/25 21: ALT 22 U/L (0-41) 05/09/25 21: Alkaline Phosphatase 49 U/L (40-130) 05/09/25 21:26 Total Protein 7.3 g/dL (6.6-8.7) 05/09/25 21: Albumin 3.9 g/dL (3.5-5.2) 05/09/25 21: Globulin 3.4 g/dL (1.3-4.6) 05/09/25 21: TSH 3.15 uIU/mL (0.27-4.20) 05/09/25 21: Urine Color Yellow (Yellow) 05/09/25 20: Urine Appearance Clear (CLEAR) 05/09/25 20: Urine pH 5.5 (5-7) 05/09/25 20: Ur Specific [place] 1.021 (1.005-1.030) 05/09/25 20: Urine Protein Negative (Negative) 05/09/25 20: Urine Glucose (UA) Negative (Normal) 05/09/25 20: Urine Ketones Negative (Negative) 05/09/25 20: Urine Blood Negative (Negative) 05/09/25 20: Urine Nitrate Negative (Negative) 05/09/25: Urine Bilirubin Negative (Negative) 05/09/25 20:30 Urine Urobilinogen 1.0 mg/dL (Negative) 05/09/25 20:30 Ur Leukocyte Esterase Negative (Negative) 05/09/25 20:30 Urine RBC 0-2 /hpf (0-2) 05/09/25 20:30 Urine WBC 0-5 /hpf (0-5) 05/09/25 20:30 Ur Squamous Epith Cells 0-5 /hpf (0-5) 05/09/25 20:30 Amorphous Sediment Not Reportable 05/09/25 20:30 Urine Bacteria None seen /hpf (NONE) 05/09/25 20:30 Hyaline Casts 0-4 /lpf H 05/09/25 20:30 Salicylates < 0.3 mg/dL (3-10) L 05/09/25 21:26 Urine Opiates Screen Negative ng/mL (Negative) 05/09/25 20:30 Acetaminophen < 5.0 ug/mL (10-30) L 05/09/25 21:26 Ur Barbiturates Screen Negative ng/mL (Negative) 05/09/25 20:30 Ur Phencyclidine Scrn Negative ng/mL (Negative) 05/09/25 20:30 Ur Amphetamines Screen Negative ng/mL (Negative) 05/09/25 20:30 U Benzodiazepines Scrn Negative ng/mL (Negative) 05/09/25 20:30 Urine Cocaine Screen Negative ng/mL (Negative) 05/09/25 20:30 U Marijuana (THC) Screen Negative ng/mL (Negative) 05/09/25 20:30 Ethyl Alcohol < 10 mg/dL (0-10) 05/09/25 21:26 All radiology interpretation(s) finalized by discharge Discharge Plan Discharge Patient Disposition: Admitted As Inpatient Admit Provider: Darius Howard Clinical Impression: Acute psychosis Condition: Stable Discharge Diet: Cardiac Discharge Activity: Resume usual activity Coding Level of Care Code ED Sales Driver for Aaron Blankenship
[2025-05-09 21:21] LABS: Hematocrit 48.4 % (37-53); Hemoglobin 16.10 g/dL (11.27-16.99); Mean Corpuscular HGB Conc 33.3 g/dL (30-55); Mean Corpuscular Hemoglobin 28.0 pg (27-33); Mean Corpuscular Volume 84.3 fl (82-101); Nucleated Red Blood Cells % 0 %; Platelet Count 413 10^3/cmm (157-399); Red Blood Count 5.74 10^6/uL (3.85-5.65); White Blood Count 11.66 10^3/uL (3.29-11.43)
[2025-05-09 21:59] LABS: Acetaminophen < 5.0 ug/mL (10-30); Alanine Aminotransferase 22 U/L (0-41); Albumin Level 3.9 g/dL (3.5-5.2); Alcohol Level < 10 mg/dL (0-10); Alkaline Phosphatase 49 U/L (40-130); Anion Gap 15.9 (5-19); Aspartate Amino Transferase 20 U/L (0-40); Blood Urea Nitrogen 16 mg/dL (6-20); Calcium 9.4 mg/dL (8.5-10.5); Carbon Dioxide 21 mmol/L (22-29); Chloride 104 mmol/L (98-107); Globulin 3.4 g/dL (1.3-4.6); Glucose 100 mg/dL (65-115); Osmolality Calculated 285 mOsm/kg (285-295); Potassium 3.9 mmol/L (3.5-5.1); Salicylate < 0.3 mg/dL (3-10); Sodium 137 mmol/L (136-145); Total Protein 7.3 g/dL (6.6-8.7)
[2025-05-09 22:03] LABS: Thyroid Stimulating Hormone 3.15 uIU/mL (0.27-4.20)
[2025-05-09 22:15] VITALS: BP 116/75; PULSE 88; O2SAT 90
[2025-05-09 23:10] VITALS: BP 124/89; PULSE 76; O2SAT 92
--- NOTE | 2025-05-09 23:37 | PC.NURSE ---
Spoke with patient's friend Margie Karan. Pt gives consent to speak with her. She is his ride home if discharged. Phone number is [phone].
[2025-05-10] VITALS (9 sets, daily range): BP systolic 104–132; BP diastolic 64–95; PULSE 59–85; RESP 16; O2SAT 90–94
--- NOTE | 2025-05-10 08:30 | PC.PHAR ---
Was asked not to wake the pt this morning. Verified current medications with last fill date and day supply from [facility].
--- NOTE | 2025-05-10 09:25 | W.PM.NPUH&PS ---
Providers/Chief Complaint Admitting Physician: Darius Howard MD Primary Care Provider: Gildardo Roberts Chief Complaint: HALLUCINATING HPI NPU History of Present Illness Jay Dodge is a 54 year old male who presented to the emergency department with the following report: Chief Complaint: Psychiatric Symptoms Stated Complaint: HALLUCINATING History of Present Illness: 54-year-old male presents with acute neurological changes including visual hallucinations, describing 'brown shit all over me' and 'four mouths on my face.' Patient reports these symptoms are new, stating they were not present yesterday. He denies drug use as a potential cause. Patient is notably anxious about his condition. He reports severe headache, describing it as 'killing me.' Patient has a significant history of recent strokes, reporting two strokes within the past two weeks with hospitalization at this facility last week. He reports residual deficits from these strokes including difficulty walking, talking, and visual disturbances. Patient appears to have right-sided facial weakness on examination. Associated symptoms: Reports delusions. Patient was having new onset neurological and psychological symptoms including hallucinations with recent CVAs and presented with psychosis and a psychiatric consult was requested. The patient was a fairly poor historian and it is unclear exactly what his history has been from the standpoint of his psychiatric care however in our system with visits going back to 2017 there is no mention of mental health or significant addiction issues. Only him being a former smoker and occasional alcohol use. He presents once again denying psychiatric morbidity or addiction issues. He reports that this psychosis and hallucinations that he experienced were sudden onset and have been bothersome since they started. He denied any drug use or other ingestion. He denies having any episode like this related to the time surrounding these reported CVAs. He was a poor historian and was only able to say that he does have a place to go and live that he has a friend that he stays with with whom he could return to. He really had no attention span for discussions about family history and concerns related to that. His UDS and BAL were unremarkable. No concern for infection per ED physician reports but it is noteworthy that he had a very mild elevation of his white count 11.66 with normal ending at 11.43. We discussed the fact that the appropriate intervention at this time would be inpatient hospitalization. We discussed the risks, benefits and alternatives of different treatment options and he understood and agreed to proceed as is documented in his note. Meds NPU Home Medications ?Medication ?Instructions ?Recorded ?Confirmed ?Last Taken ?Type amlodipine 10 mg tablet 10 mg PO DAILY 05/10/25 05/10/25 Unknown History atorvastatin 40 mg tablet 40 mg PO BEDTIME 05/10/25 05/10/25 Unknown History clopidogrel 75 mg tablet 75 mg PO DAILY 05/10/25 05/10/25 Unknown History hydralazine 50 mg tablet 50 mg PO Q8H PRN htn 05/10/25 05/10/25 Unknown History levetiracetam 1,000 mg tablet 1,000 mg PO BID 05/10/25 05/10/25 Unknown History Allergies Allergy/AdvReac Type Severity Reaction Status Date / Time No Known Allergies Allergy Verified 05/11/21 09:50 PFS NPU PFSH: Medical History (Updated 05/11/25 @ 07:23 by Darius Howard MD) CVA (cerebral vascular accident) Food impaction of esophagus Surgical History H/O esophagogastroduodenoscopy (01/14/21) Social History Smoking and tobacco/nicotine status: never used tobacco/nicotine Mental Status Exam MSE Comments: This is an obese white male in hospital scrubs with limited grooming and eye contact. No abnormal movements except for psychomotor retardation. Cooperative with exam and mild to moderate distress. Speech was decreased rate and volume. Mood described as okay, affect subdued. Thought process linear but at times disorganized. Thought content: Patient denied suicidal or homicidal ideation, there were no delusional aspects reported but some mild paranoia/guardedness noted, he did endorse having some hallucinations prior to coming to the hospital and reports they have been better since he received medication. Attention and concentration were mostly intact and memory was limited but none were formally tested. He is alert and oriented x 3. Insight and judgment are limited impulse control limited. Vitals/I&O/Wt Last Vital Signs Temp 99 F 05/09/25 20:59 Pulse 68 05/10/25 09:00 Resp 16 05/10/25 05:34 BP 104/64 05/10/25 09:00 Pulse Ox 91 05/10/25 09:00 O2 Del Method Room Air 05/10/25 09:00 O2 Flow Rate 2 05/10/25 05:34 Weight last 48 hrs Weight 104.326 kg Data NPU 05/09/25 20:53 05/09/25 21:26 A&P Assessment and plan 1. Acute psychosis: 2. CVA (cerebral vascular accident): Plan: This is a 54-year-old white male with no known psychiatric history who presented with reports of recent CVAs and now reports of psychosis without history of past psychiatric care or morbidity. 1. Will offer Haldol 2 mg p.o. daily and consider as needed Haldol for future episodes. 2. Patient reporting some continued symptoms but certainly feeling better after a dose of Haldol but no past history or explanation for why he would be experiencing psychosis now except for as a possible sequela of these recent CVAs. 3. Given his lack of any history, no psychiatric follow-up in place, he deserves a real psychiatric evaluation on an inpatient unit. 4. Will continue to follow. PDMP PDMP Reviewed: Not Reviewed Attestations NPU Medical Necessity Statement*: N/A. Please see primary team note for medical necessity but agree with inpatient psychiatric facility preferably [facility]. Coding Level of Care Code Acute Code for Chg Fwd Diagnoses Acute psychosis F23 CVA (cerebral vascular accident) I63.9
--- NOTE | 2025-05-11 01:09 | XRR_ITS ---
PROCEDURE INFORMATION: Exam: XR Chest Exam date and time: 05/11/2025 1:10 AM Age: 54 years old Clinical indication: Screening exam; Other screening; Medical clearance for psych transfer TECHNIQUE: Imaging protocol: Radiologic exam of the chest. Views: 1 view. COMPARISON: CR XR chest 1V portable [id number] 05/11/2021 9:22 AM FINDINGS: Lungs: Unremarkable. No consolidation. Pleural spaces: Unremarkable. No pleural effusion. No pneumothorax. Heart/Mediastinum: Unremarkable. No cardiomegaly. Bones/joints: Unremarkable. XR/XR chest 1V [id number] IMPRESSION: No acute findings.
[2025-05-11 02:00] VITALS: BP 112/72; PULSE 62; O2SAT 91
[2025-05-11 02:41] LABS: Respiratory Syncytial Virus Ce NEGATIVE (Negative); SARS-CoV-2 PCR NEGATIVE (Negative)
[2025-05-11 07:59] VITALS: BP 154/113; PULSE 59; O2SAT 91
--- NOTE | 2025-05-11 13:04 | PC.NURSE ---
spoke with patient's friend andres, who states patient was seen last at [facility] for stroke like symptoms and confirms he was sent home the same day with no deficits.
[2025-05-11] MEDS: LORazepam 2 mg/mL INJ 1 mL 1 MG IVP (13:59)
[2025-05-11 14:03] VITALS: BP 143/99; PULSE 84; O2SAT 94
[2025-05-11 16:02] VITALS: BP 158/106; PULSE 84; RESP 18; TEMP 36.5; O2SAT 98
--- NOTE | 2025-05-11 17:43 | PC.NURSE ---
Order entered for OT to eval and treat. Pt. is a high fall risk and says he uses a cane at home.
--- NOTE | 2025-05-11 17:53 | P.NPUPN_ITS ---
Subjective NPU 2 Subjective: Patient presented today reporting that things are okay. Significant dysarthria exists making it very difficult at times to understand anything that he is saying per staff reports and direct observation. We discussed him being admitted to the neuropsychiatric unit here given his ability to manage his own ADLs. We discussed a plan to work with the treatment team on the unit to understand the situation better and get him connected with appropriate outpatient resources. He was thankful for being able to stay here and denied any current side effects to his medication. Mental Status Exam 2 MSE Comments: This is an obese white male in hospital scrubs with limited grooming and eye contact. No abnormal movements except for psychomotor retardation with unsteady gait somewhat wide-based with occasional stumbles. Cooperative with exam in mild to moderate distress. Speech was decreased rate and volume with significant dysarthria. Mood described as okay, affect subdued. Thought process linear but at times disorganized. Thought content: Patient denied suicidal or homicidal ideation, there were no delusional aspects reported but some mild paranoia/guardedness noted, he did endorse having some hallucinations prior to coming to the hospital and reports they have been better since he received medication. Attention and concentration were mostly intact and memory was limited but none were formally tested. He is alert and oriented x 3. Insight and judgment are limited impulse control limited. Vitals/I&O/Wt Last Vital Signs Temp 98.8 F 05/11/25 19:41 Pulse 88 05/11/25 19:41 Resp 20 H 05/11/25 19:41 BP 143/93 05/11/25 19:41 Pulse Ox 96 05/11/25 19:41 O2 Del Method Room Air 05/11/25 19:41 O2 Flow Rate 2 05/10/25 05:34 Data NPU 05/09/25 20:53 05/09/25 21:26 A&P Assessment and plan 1. Acute psychosis: 2. CVA (cerebral vascular accident): Plan: This is a 54-year-old white male with no known psychiatric history who presented with reports of recent CVAs and now reports of psychosis without history of past psychiatric care or morbidity. 1. Continue Haldol 2 mg p.o. daily and consider as needed Haldol for future episodes. 2. Patient reporting some continued symptoms but certainly feeling better after a dose of Haldol but no past history or explanation for why he would be experiencing psychosis now except for as a possible sequela of these recent CVAs. 3. After careful consideration of his medical comorbidities and functioning we agreed to admit him to the neuropsychiatric unit.. 4. Encourage individual, group and milieu therapy. 5. Continue every 15 minute checks for safety. 6. Obtain PT OT consult for gait instability. 7. Obtain collateral information. PDMP PDMP Reviewed: Not Reviewed Involuntary Hold Information 2 Hold Status: Date/Time Hold Expires: voluntary Attestations NPU 2 Medical Necessity Statement*: Inpatient hospitalization is medically necessary and the clinically appropriate intervention at this time. We will monitor/initiate medications and make changes as indicated. He will be in the hospital for over 2 midnights. Likely length of stay 3 to 5 days. Coding Level of Care Code Acute Code for [facility] Diagnoses Acute psychosis F23 CVA (cerebral vascular accident) I63.9
[2025-05-11 19:41] VITALS: BP 143/93; PULSE 88; RESP 20; TEMP 37.1; O2SAT 96
[2025-05-12 06:00] VITALS: BP 130/79; PULSE 78; RESP 20; TEMP 37; O2SAT 96
[2025-05-12 14:00] VITALS: BP 116/69; PULSE 85; RESP 18; O2SAT 97
--- NOTE | 2025-05-12 17:21 | P.NPUPN_ITS ---
Subjective NPU 2 Subjective: Patient presented today reporting he is doing okay. He denied any issues with the medication and reported feeling a little better. He endorsed an openness to considering some kind of residential setting with assistance with his daily needs. He reports his current caregiver is a friend but that the person would not have issue with him finding a more official or more stable situation. He continues to work with the social work team towards that end. He denied any side effects to the medication. Mental Status Exam 2 MSE Comments: This is an obese white male in hospital scrubs with limited grooming and eye contact. No abnormal movements except for psychomotor retardation with unsteady gait somewhat wide-based with occasional stumbles. Noteworthy stain from red Jun-Aid on his mustache and noriega. Cooperative with exam in mild to moderate distress. Speech was decreased rate and volume with significant dysarthria. Mood described as okay, affect subdued. Thought process linear but at times disorganized. Thought content: Patient denied suicidal or homicidal ideation, there were no delusional aspects reported but some mild paranoia/guardedness noted, he did endorse having some hallucinations prior to coming to the hospital and reports they have been better since he received medication. Attention and concentration were mostly intact and memory was limited but none were formally tested. He is alert and oriented x 3. Insight and judgment are limited impulse control limited. Vitals/I&O/Wt Last Vital Signs Temp 98.6 F 05/12/25 20:29 Pulse 68 05/12/25 20:29 Resp 18 05/12/25 20:29 BP 151/87 05/12/25 20:29 Pulse Ox 96 05/12/25 20:29 O2 Del Method Room Air 05/12/25 20:29 O2 Flow Rate 2 05/10/25 05:34 05/12/25 14:59 Intake Total Balance Data NPU 05/09/25 20:53 05/09/25 21:26 A&P Assessment and plan 1. Acute psychosis: 2. CVA (cerebral vascular accident): Plan: This is a 54-year-old white male with no known psychiatric history who presented with reports of recent CVAs and now reports of psychosis without history of past psychiatric care or morbidity. 1. Continue Haldol 2 mg p.o. daily and consider as needed Haldol for future episodes. 2. Patient reporting some continued symptoms but certainly feeling better after a dose of Haldol but no past history or explanation for why he would be experiencing psychosis now except for as a possible sequela of these recent CVAs. 3. After careful consideration of his medical comorbidities and functioning we agreed to admit him to the neuropsychiatric unit.. 4. Encourage individual, group and milieu therapy. 5. Continue every 15 minute checks for safety. 6. Obtain PT OT consult for gait instability. 7. Obtain collateral information. PDMP PDMP Reviewed: Not Reviewed Involuntary Hold Information 2 Hold Status: Date/Time Hold Expires: voluntary Attestations NPU 2 Medical Necessity Statement*: * Inpatient hospitalization is medically necessary and the clinically appropriate intervention at this time. We will monitor/initiate medications and make changes as indicated. Likely length of stay 2-4 days. Coding Level of Care Code Acute Code for g [facility] Diagnoses Acute psychosis F23 CVA (cerebral vascular accident) I63.9
[2025-05-12 20:29] VITALS: BP 151/87; PULSE 68; RESP 18; TEMP 37; O2SAT 96
[2025-05-13 06:00] VITALS: BP 134/71; PULSE 63; RESP 16; TEMP 36.5; O2SAT 96
--- NOTE | 2025-05-13 11:01 | P.NPUPN_ITS ---
Subjective NPU 2 Subjective: Patient presented today reporting that he is doing all right. He is working with the social work team on possible placement for his general needs and support. He is tolerating the medication fine and denied any concerns at this point with the medication. He denied any side effects reported he would be open to placement per the social work team. Mental Status Exam 2 MSE Comments: This is an obese white male in hospital scrubs with limited grooming and eye contact. No abnormal movements except for psychomotor retardation with unsteady gait somewhat wide-based with occasional stumbles. Noteworthy stain from red Jun-Aid on his mustache and noriega. Cooperative with exam in mild distress. Speech was decreased rate and volume with significant dysarthria. Mood described as okay, affect subdued. Thought process linear but at times disorganized. Thought content: Patient denied suicidal or homicidal ideation, there were no delusional aspects reported but some mild paranoia/guardedness noted, he did endorse having some hallucinations prior to coming to the hospital and reports they have been better since he received medication. Attention and concentration were mostly intact and memory was limited but none were formally tested. He is alert and oriented x 3. Insight and judgment are limited impulse control limited. Vitals/I&O/Wt Last Vital Signs Temp 97.7 F 05/13/25 06:00 Pulse 63 05/13/25 06:00 Resp 16 05/13/25 06:00 BP 134/71 05/13/25 06:00 Pulse Ox 96 05/13/25 06:00 O2 Del Method Room Air 05/13/25 06:00 O2 Flow Rate 2 05/10/25 05:34 Data NPU 05/09/25 20:53 05/09/25 21:26 A&P Assessment and plan 1. Acute psychosis: 2. CVA (cerebral vascular accident): Plan: This is a 54-year-old white male with no known psychiatric history who presented with reports of recent CVAs and now reports of psychosis without history of past psychiatric care or morbidity. 1. Continue Haldol 2 mg p.o. daily and consider as needed Haldol for future episodes. 2. Patient reporting some continued symptoms but certainly feeling better after a dose of Haldol but no past history or explanation for why he would be experiencing psychosis now except for as a possible sequela of these recent CVAs. 3. After careful consideration of his medical comorbidities and functioning we agreed to admit him to the neuropsychiatric unit.. 4. Encourage individual, group and milieu therapy. 5. Continue every 15 minute checks for safety. 6. Obtain PT OT consult for gait instability. 7. Obtain collateral information. PDMP PDMP Reviewed: Not Reviewed Involuntary Hold Information 2 Hold Status: Date/Time Hold Expires: voluntary Attestations NPU 2 Medical Necessity Statement*: * Inpatient hospitalization is medically necessary and the clinically appropriate intervention at this time. We will monitor/initiate medications and make changes as indicated. Likely length of stay 1-3 days. Coding Level of Care Code Acute Code for [facility] Diagnoses Acute psychosis F23 CVA (cerebral vascular accident) I63.9
[2025-05-13 14:00] VITALS: BP 137/78; PULSE 68; RESP 16; TEMP 37; O2SAT 98
--- NOTE | 2025-05-13 17:22 | PC.NURSE ---
Addendum entered by Malena Houser RN 05/13/25 17:26: contacted inpatient pt for an order for a walker at this time. Jhonatan stated he would let Edwin know about our inquiry. Original Note: pt walking/ gait pt shuffles unsteadily during ambulation. pt states he cant walk to length of the hallway without assistance. re-eval might be appropriate for this patient.
[2025-05-13 20:18] VITALS: BP 152/97; PULSE 68; RESP 16; TEMP 36.9; O2SAT 97
[2025-05-14 06:00] VITALS: BP 127/80; PULSE 69; RESP 18; TEMP 36.5; O2SAT 96
--- NOTE | 2025-05-14 07:56 | PC.NURSE ---
Pt. given a urinal to make ADLs easier
--- NOTE | 2025-05-14 09:34 | PC.OT ---
OT ORDERS RECEIVED FOR ASSESSMENT DUE TO PATIENT HAVING DIFFICULTY FEEDING HIMSELF. PATIENT HAS HX OF 2 RECENT CVA. UPON NPU EVALUATION EARLIER IN THE WEEK IT WAS NOTED THAT THE PATIENT HAS A SIGNIFICANT R VISUAL FIELD CUT. HE IS NOT ABLE TO SEE ANYTHING IN ANY QUADRANT WITH HIS RIGHT EYE. HE WAS INFORMED OF THIS AT THE EVALUATION AND ENCOURAGED TO MOVE ITEMS; PLATE, ETC TO THE LEFT IN ORDER TO BE ABLE TO SEE WHAT THE ITEM WAS OR WHAT FOOD WAS ON HIS PLATE. HE IS REMINDED OF THIS AGAIN TODAY. PATIENT ABLE TO DEMONSTRATE WFL MX STRENGTH AND ROM OF THE R UE AND GRASP STRENGTH IS ALSO WFL. PATIENT IS R UE DOMINANT. PATIENT ISSUED RED FOAM FOR BUILT UP UTENSIL WHICH WILL BE KEPT AT HIS BIN AT THE NURSES STATION FOR USE DURING FEEDING TASK. PATIENT INFORMED OF THIS. PATIENT NURSE INFORMED OF FINDINGS AND THERAPIST REQUESTS SUPERVISION AND SET UP OF TRAY AND RED FOAM DURING FEEDING TASK. OT/HEALTH AND SAFETY TECHNICIAN ON UNIT WILL CONTINUE TO MONITOR AND PROVIDE ASSISTANCE PRN.
--- NOTE | 2025-05-14 13:40 | P.NPUDS_ITS ---
Diagnoses at Discharge Discharge Diagnosis 1. Acute psychosis: 2. CVA (cerebral vascular accident): Reason for Visit Reason for Visit: HALLUCINATING Involuntary Hold Information Hold Status: Date/Time Hold Expires: voluntary Mental Status Exam MSE Comments: This is an obese white male in hospital scrubs with limited grooming and eye contact. No abnormal movements except for psychomotor retardation with unsteady gait somewhat wide-based with occasional stumbles. Noteworthy stain from red Jun-Aid on his mustache and noriega. Cooperative with exam in mild distress. Speech was decreased rate and volume with significant dysarthria. Mood described as okay, affect subdued. Thought process linear but at times disorganized. Thought content: Patient denied suicidal or homicidal ideation, there were no delusional aspects reported but some mild paranoia/guardedness noted, he did endorse having some hallucinations prior to coming to the hospital and reports they have been better since he received medication. Attention and concentration were mostly intact and memory was limited but none were formally tested. He is alert and oriented x 3. Insight and judgment are limited impulse control limited. Discharge Data Studies Completed and Pending: Completed Studies During Hospitalization Category Date Time Status CT head wo con* 7 [id number] Stat Cat Scan 05/09/25 20:43 Completed XR chest 1V [id number] Routine Exams 05/11/25 01:09 Completed Radiology Impressions Head CT 05/09/25 20:43 IMPRESSION: No acute intracranial abnormality. Chest X-Ray 05/11/25 01:09 IMPRESSION: No acute findings. Laboratory Results WBC 11.66 10^3/uL (3. 29-11.43) H 05/09/25 20:53 RBC 5.74 10^6/uL (3.8 5-5.65) H 05/09/25 20:53 Hgb 16.10 g/dL (11.27 -16.99) 05/09/25 20:53 Hct 48.4 % (37-53) 05/09/25 20:53 MCV 84.3 fl (82-101) 05/09/25 20:53 MCH 28.0 pg (27-33) 05/09/25 20:53 MCHC 33.3 g/dL (30-55) 05/09/25 20:53 RDW 13.2 % (12.1-15.1 ) 05/09/25 20:53 Plt Count 413 10^3/cmm (157 -399) H 05/09/25 20:53 MPV 8.8 fL (7.4-10.4) 05/09/25 20:53 Neut % (Auto) 57.5 % 05/09/25 20:53 Lymph % (Auto) 20.9 % 05/09/25 20:53 Evans % (Auto) 10.0 % 05/09/25 20:53 Eos % (Auto) 10.0 % 05/09/25 20:53 Baso % (Auto) 1.3 % 05/09/25 20:53 Neut # (Auto) 6.70 10^3/uL (1.8 -7.7) 05/09/25 20:53 Lymph # (Auto) 2.4 10^3/uL (0.8- 4.8) 05/09/25 20:53 Evans # (Auto) 1.2 10^3/uL (0.2- 0.9) H 05/09/25 20:53 Eos # (Auto) 1.2 10^3/uL (0.0- 0.8) H 05/09/25 20:53 Baso # (Auto) 0.2 10^3/uL (0.0- 0.1) H 05/09/25 20:53 Nucleated RBC % (a uto) 0 % 05/09/25 20:53 Nucleated RBCs # 0.0 /100WBC 05/09/25 20:53 Sodium 137 mmol/L (136-1 45) 05/09/25 21:26 Potassium 3.9 mmol/L (3.5-5 .1) 05/09/25 21:26 Chloride 104 mmol/L (98-10 7) 05/09/25 21:26 Carbon Dioxide 21 mmol/L (22-29) L 05/09/25 21:26 Anion Gap 15.9 (5-19) 05/09/25 21:26 BUN 16 mg/dL (6-20) 05/09/25 21:26 Creatinine 0.8 mg/dL (0.7-1. 2) 05/09/25 21:26 GFR Calculation 100.4 mL/min (90- 130) 05/09/25 21:26 Glucose 100 mg/dL (65-115 ) 05/09/25 21:26 Calculated Osmolal ity 285 mOsm/kg (285- 295) 05/09/25 21: Calcium 9.4 mg/dL (8.5-10 .5) 05/09/25 21: Total Bilirubin 0.3 mg/dL (0.15-1 .2) 05/09/25 21: AST 20 U/L (0-40) 05/09/25 21: ALT 22 U/L (0-41) 05/09/25 21: Alkaline Phosphata se 49 U/L (40-130) 05/09/25 21: Total Protein 7.3 g/dL (6.6-8.7 ) 05/09/25: Albumin 3.9 g/dL (3.5-5.2 ) 05/09/25: Globulin 3.4 g/dL (1.3-4.6 ) 05/09/25: TSH 3.15 uIU/mL (0.27 -4.20) 05/09/25: Urine Color Yellow (Yellow) 05/09/25 20:30 Urine Appearance Clear (CLEAR) 05/09/25 20: Urine pH 5.5 (5-7) 05/09/25 20:30 Ur Specific Gravit y 1.021 (1.005-1.0 30) 05/09/25 20: Urine Protein Negative (Negati ve) 05/09/25 20:30 Urine Glucose (UA) Negative (Normal ) 05/09/25 20:30 Urine Ketones Negative (Negati ve) 05/09/25 20:30 Urine Blood Negative (Negati ve) 05/09/25 20: Urine Nitrate Negative (Negati ve) 05/09/25 20: Urine Bilirubin Negative (Negati ve) 05/09/25 20: Urine Urobilinogen 1.0 mg/dL (Negati ve) 05/09/25 20:30 Ur Leukocyte Honey ase Negative (Negati ve) 05/09/25 20:30 Urine RBC 0-2 /hpf (0-2) 05/09/25 20:30 Urine WBC 0-5 /hpf (0-5) 05/09/25 20:30 Ur Squamous Epith Cells 0-5 /hpf (0-5) 05/09/25 20:30 Amorphous Sediment Not Reportable 05/09/25 20:30 Urine Bacteria None seen /hpf (N ONE) 05/09/25 20:30 Hyaline Casts 0-4 /lpf H 05/09/25 20:30 Salicylates < 0.3 mg/dL (3-10 ) L 05/09/25 21:26 Urine Opiates Scre en Negative ng/mL (N egative) 05/09/25 20:30 Acetaminophen < 5.0 ug/mL (10-3 0) L 05/09/25 21:26 Ur Barbiturates Sc reen Negative ng/mL (N egative) 05/09/25 20:30 Ur Phencyclidine S crn Negative ng/mL (N egative) 05/09/25 20:30 Ur Amphetamines Sc reen Negative ng/mL (N egative) 05/09/25 20:30 U Benzodiazepines Scrn Negative ng/mL (N egative) 05/09/25 20:30 Urine Cocaine Scre en Negative ng/mL (N egative) 05/09/25 20:30 U Marijuana (THC) Screen Negative ng/mL (N egative) 05/09/25 20:30 Ethyl Alcohol < 10 mg/dL (0-10) 05/09/25 21:26 Influenza A (PCR) Negative (Negati ve) 05/11/25 01:58 Influenza Type B ( PCR) Negative (Negati ve) 05/11/25 01:58 RSV (PCR) Negative (Negati ve) 05/11/25 01:58 SARS-CoV-2 (PCR) Negative (Negati ve) 05/11/25 01:58 Vitals: Last Vital Signs Temp 97.7 F 05/14/25 06:00 Pulse 69 05/14/25 06:00 Resp 18 05/14/25 06:00 BP 127/80 05/14/25 06:00 Pulse Ox 96 05/14/25 06:00 O2 Del Method Room Air 05/14/25 06:00 O2 Flow Rate 2 05/10/25 05:34 Discharge Plan Discharge Patient Disposition: Home Condition: Stable Prescriptions: New haloperidol 2 mg tablet 2 mg PO DAILY 30 Days Qty: 30 1RF trazodone 50 mg Tablet 50 mg PO BEDTIME PRN (Reason: Sleep) 30 Days Qty: 30 1RF hydroxyzine pamoate 25 mg Capsule 50 mg PO Q6H PRN (Reason: Anxiety) 30 Days Qty: 120 1RF Continued hydralazine 50 mg tablet 50 mg PO Q8H PRN (Reason: htn) atorvastatin 40 mg tablet 40 mg PO BEDTIME 30 Days Qty: 30 1RF clopidogrel 75 mg tablet 75 mg PO DAILY 30 Days Qty: 30 0RF amlodipine 10 mg tablet 10 mg PO DAILY 30 Days Qty: 30 1RF levetiracetam 1,000 mg tablet 1,000 mg PO BID 30 Days Qty: 60 0RF Discharge Order = DC NOW: Discharge Order (Routine); Ordered 05/14/25 Ordered By: Darius Howard Other Ambulatory Orders: DME: Luca (Order) Location: None Selected Ordered By: Darius Howard Referrals: Gildardo Roberts [Primary Care Provider, [facility]] Discharge Diet: Cardiac Discharge Activity: Resume usual activity Patient Instructions: Opioid Safety, Patient Portal & Sarah Instructions Discharge Attestations NPU Time Spent in Discharge Care*: less than 30 min Specific Discharge Activities: Specific discharge activities: educating patient, discussing with case finisher/social workers/dc planners, documenting/other paperwork and evaluating patient/reviewing data Coding Level of Care Code Acute Code for [facility] Diagnoses Acute psychosis F23 CVA (cerebral vascular accident) I63.9
[2025-05-14 14:00] VITALS: BP 121/73; PULSE 72; RESP 16; TEMP 36.8; O2SAT 95
[2025-05-14 14:14] VITALS: BP 121/73; PULSE 72; RESP 16; TEMP 36.8; O2SAT 95
--- NOTE | 2025-05-14 15:16 | DCPLANNER ---
Imm was given to pt and right explained and copy placed in pts chart.
== END 2025-05-14 16:45 | disposition home or self-care (01) | DRG 885 ==
LOC: ER 23:45 → ER IP 05-10 01:28 → NP 05-11 15:52
PROVIDERS: Emergency Medicine; Admitting Provider Psychiatry & Neurology Psychiatry; Emergency Provider Family Medicine; PCP Family Medicine; Visit Provider Psychiatry & Neurology Psychiatry
DX: F23 Brief psychotic disorder (principal); E66.9 Obesity, unspecified; Z68.35 Body mass index [BMI] 35.0-35.9, adult; I69.392 Facial weakness following cerebral infarction; R47.1 Dysarthria and anarthria; R26.89 Other abnormalities of gait and mobility
CPT/HCPCS: 70450; 71045; 80053; 80306; 80307; 81001; 84443; 85025; 87637; 93005; 96374; 96375; 97116; 97161; 97165; 99285; J1630; J2060; J9999